=== PATIENT | female | born 1940 | race Caucasian/White ===

== ENCOUNTER → 2019-12-16 14:06 | Outpatient (CLI) | payer MEDICARE, SELFPAY ==
--- NOTE | ~2019-12-16 | XR_ITS ---
EXAMINATION: XR chest 2V EXAM DATE: 12/16/2019 14:38 INDICATION: Paroxysmal atrial fibrillation. Amiodarone therapy. TECHNIQUE: Frontal and lateral projections of the chest obtained and reviewed. Comparison is made to prior examination from 04/15/2018. FINDINGS: Chronic hyperinflation. There is a dual lead pacemaker/AICD seen with leads projecting ove r the expected locations of the right atrial appendage and right ventricle. Cardiomediastinal silhoue tte is normal. There is tortuosity of the aorta. No confluent consolidation, pneumothorax or pleural effusion suspected. There are bony degenerative changes. There is no significant interval change. IMPRESSION: 1. Clear lungs. Reviewed, dictated and finalized at location B. SERVICE DEMONSTRATOR IMPRESSION: 1. Clear lungs.
== END ==
PROVIDERS: PCP Physician Assistant; Visit Provider Internal Medicine Cardiovascular Disease
DX: I48.0 Paroxysmal atrial fibrillation (principal); Z79.899 Other long term (current) drug therapy
CPT/HCPCS: 71046

== ENCOUNTER → 2019-12-16 14:09 | Outpatient (CLI) | payer MEDICARE, SELFPAY ==
--- NOTE | ~2019-12-16 | XR_ITS ---
EXAMINATION: XR lumbar spine 2-3V DATE: 12/16/2019 14:38 INDICATION: Low back pain. TECHNIQUE: 3 views of lumbar spine were obtained. COMPARISON: Lumbar spine radiographs 09/21/2019 FINDINGS: There is 14 degrees dextroscoliosis of lumbar spine. There is 3 mm retrolisthesis of T12 on L1 and L1 on L2. There is 7 mm anterolisthesis of L5 on S1. There is a chronic compression fracture of L1 with 2/5 loss of height. There is severely decreased disc height at L1-L2 and moderately decrea sed disc height at L4-L5 and L5-S1. There is multilevel severe facet joint osteoarthritis, worse in l ower lumbar spine. There are surgical clips in the abdomen. Partially visualized is a pacer wire in r ight ventricle of the heart. IMPRESSION: 1. Stable severe lumbar spondylosis. 2. Thoracolumbar dextroscoliosis. Reviewed, dictated and finalized at location A. LABORER
== END ==
PROVIDERS: PCP Physician Assistant; Visit Provider Physician Assistant
DX: G89.29 Other chronic pain (principal); M47.896 Other spondylosis, lumbar region
CPT/HCPCS: 72100

== ENCOUNTER → 2020-01-02 14:33 | Outpatient (CLI) | payer MEDICARE, SELFPAY ==
--- NOTE | ~2020-01-02 | CT_ITS ---
EXAMINATION: CT lumbar spine wo con EXAM DATE: 01/02/2020 14:58 INDICATION: Lumbar radiculopathy. History of L1 fracture. TECHNIQUE: Spiral CT of the lumbar spine was performed without contrast. Axial, coronal and sagittal images were reviewed. The dose-length product (DLP) for this examination was 869.73 mGy-cm. The e xposure was tailored according to patient size (auto mA exposure control), and iterative reconstructi on (ASIR) was used as additional dose reduction technique. Correlation is made to lumbar x-ray 020, 10/01/2019. FINDINGS: Again there is mild to moderate anterior wedging, compression fracture at the superior endp late of the L1 vertebral body. Height is unchanged compared to the prior 2 studies, has chronic appea nader. Otherwise the vertebral body heights relatively well-maintained. There is small bridging endpl ate osteophytes. There is 3 mm retrolisthesis L1 on L2, 4 mm anterolisthesis L4 on L5 and 2 mm tamy listhesis L5 on S1. No spondylolysis. There are no bony erosions identified. There are bilateral sacr al insufficiency fractures with sclerosis, suggesting these are subacute. There is hyperdense liver with differential diagnosis including hemochromatosis, hemosiderosis, trans fusional overload, amiodarone treatment. Scattered sigmoid diverticulosis. Fluid density renal lesion s consistent with cysts. No retroperitoneal lymphadenopathy. Level by level evaluation: T12-L1: There is a mild diffuse disc bulge. Facet arthropathy: Mild. Neural foraminal stenosis: Moderate bilateral. Central canal stenosis: Mild. L1-L2: There is a mild to moderate diffuse disc bulge. Facet arthropathy: Moderate. Neural foraminal stenosis: Moderate bilateral, left greater than right. Central canal stenosis: Mild to moderate. L2-L3: There is a mild diffuse disc bulge. Facet arthropathy: Moderate. Neural foraminal stenosis: Mild bilateral. Central canal stenosis: Mild. L3-L4: There is a mild diffuse disc bulge. Facet arthropathy: Moderate to severe. Neural foraminal stenosis: Mild to moderate left, mild right. Central canal stenosis: Mild to moderate. L4-L5: There is a moderate diffuse disc bulge. Facet arthropathy: Severe. Neural foraminal stenosis: Moderate bilateral. Central canal stenosis: Severe. L5-S1: There is a mild to moderate diffuse disc bulge. Facet arthropathy: Moderate to severe. Neural foraminal stenosis: Moderate right, mild to moderate left. Central canal stenosis: Moderate to severe. IMPRESSION: 1. Bilateral sacroiliac insufficiency fractures, probably subacute. 2. L4-5 grade 1 anterolisthesis, severe facet arthropathy and central canal stenosis. 3. Lesser spondylosis at other levels. 4. Chronic L1 compression fracture. 5. Hyperdense liver, differential considerations above. Reviewed, dictated and finalized at location A. IMPRESSION: 1. Bilateral sacroiliac insufficiency fractures, probably subacute. 2. L4-5 grade 1 anterolisthesis, severe facet arthropathy and central canal st enosis. 3. Lesser spondylosis at other levels. 4. Chronic L1 compression fracture. 5. Hyperdense liver, differential considerations above.
== END ==
PROVIDERS: PCP Physician Assistant; Visit Provider Nurse Practitioner Adult Health
DX: M54.16 Radiculopathy, lumbar region (principal)
CPT/HCPCS: 72131

== ENCOUNTER 2020-03-10 18:15 | Emergency (ER) | payer MEDICARE, SELFPAY ==
--- NOTE | ~2020-03-10 | XR_ITS ---
EXAMINATION: XR wrist RT min 3V EXAM DATE: 03/10/2020 18:48 INDICATION: Initial encounter following injury, with pain of the right wrist. TECHNIQUE: Right wrist frontal, frontal with ulnar deviation, oblique and lateral projections obtain ed and reviewed. There is no prior study for comparison. FINDINGS: There is acute mildly comminuted right radial distal metaphyseal fracture into the distal r adioulnar and the radiocarpal joint. There is about 5 mm of volar displacement. There is acute nondis placed ulnar styloid base fracture. There is overlying soft tissue swelling. Mildly wide scapholunate joint space. There is mild polyarticular primary osteoarthritis. There is tiny foreign body identifi ed within the dorsal wrist subcutaneous fat on the lateral projection. IMPRESSION: 1. Acute mildly comminuted right distal radial metaphyseal intra-articular fracture. 2. Acute nondisplaced ulnar styloid avulsion. 3. Tiny radiopaque foreign body dorsally. Reviewed, dictated and finalized at location A. IMPRESSION: 1. Acute mildly comminuted right distal radial metaphyseal intra-articular fra cture. 2. Acute nondisplaced ulnar styloid avulsion. 3. Tiny radiopaque foreign body dorsally.
[2020-03-10 18:16] VITALS: BP 154/86; PULSE 64; RESP 18; TEMP 36.6; O2SAT 99
--- NOTE | 2020-03-10 19:14 | ED.UPPEXIN ---
HPI - Extremity Injury (Upper) General Chief Complaint: Extremity Injury, Upper Stated Complaint: right wrist injury Time Seen by Provider: 03/10/20 19:13 History of Present Illness HPI narrative: Trip and fall onto outstretched right hand earlier this evening. Moderate pain and swelling of the right wrist. Radiates to the elbow. Worse with movement. No weakness, numbness, wound. She denies any other pain or injury from the fall. Related Data Allergies Allergy/AdvReac Type Severity Reaction Status Date / Time No Known Allergies Allergy Verified 09/21/19 11:37 Review of Systems Review of Systems: All systems reviewed & are unremarkable except as noted in HPI and below Constitutional: Constitutional: Denies fever(s) Cardiovascular: Cardiovascular: Denies chest pain Respiratory: Respiratory: Denies dyspnea Musculoskeletal: Musculoskeletal: Reports back pain (chronic) Neurologic: Denies dizziness, Denies numbness and Denies weakness PMFSH Past Medical History Medical History Appendicitis Atrial fibrillation, permanent Brain tumor Pacemaker Surgical History Surgical History H/O: hysterectomy Hx of cholecystectomy Social History Social History Smoking status: Never smoker Alcohol intake: never Substance use: never Exam Const: General: no acute distress and alert Orientation/consciousness: patient oriented x3 HENMT: Head: normal to inspection Resp: Effort & Inspection: normal respiratory effort Cardio: Other: 2+right radial pulse Skin: General skin exam: normal color Wounds: no wounds Neuro: General: patient oriented x3 Speech: normal speech Extrem: Other: swelling and tenderness of right wrist without obvious deformity. Course Vital Signs Vital signs: Vital Signs Temperature 36.6 C 03/10/20 18:16 Pulse Rate 64 03/10/20 18:16 Respiratory Rate 18 03/10/20 18:16 Blood Pressure 154/86 H 03/10/20 18:16 Pulse Oximetry 99 03/10/20 18:16 Temperature 36.6 C 03/10/20 18:16 Pulse Rate 64 03/10/20 18:16 Respiratory Rate 18 03/10/20 18:16 Blood Pressure 154/86 H 03/10/20 18:16 Pulse Oximetry 99 03/10/20 18:16 Procedures Orthopedic Splinting/Casting Injury #1: Side: right Upper Extremity Injury Location: wrist Splint: customized in ED OCL: volar Pre-Procedure Neuro Vascular Exam: normal Post-Procedure Neuro Vascular Exam: normal MDM - Extremity Injury (Upper) Differential Diagnosis Differential diagnosis: Likely fracture of wrist Imaging Data Radiologist's impression: ITS Impressions Wrist X-Ray 03/10/20 18:52 IMPRESSION: 1. Acute mildly comminuted right distal radial metaphyseal intra-articular fracture. 2. Acute nondisplaced ulnar styloid avulsion. 3. Tiny radiopaque foreign body dorsally. Discharge Plan Discharge Clinical Impression: Fracture of wrist Qualifiers: Encounter type: initial encounter Fracture type: closed Laterality: right Qualified Code(s): S62.101A - Fracture of unspecified carpal bone, right wrist, initial encounter for closed fracture Patient Disposition: Home, Self-Care Condition: Stable Instructions: Wrist Fracture in Adults (ED) Prescriptions: New hydrocodone-acetaminophen [B[place]] 5-325 mg tablet 1 tablet PO Q6H PRN (Reason: pain) Qty: 15 RF: 0 Follow-up/Referrals: Dillan Malone MD [Physician] - [facility],JURGEN Villa [Primary Care Provider] - Discharge Date/Time: 03/10/20 19:41
== END 2020-03-10 19:41 | disposition home or self-care (01) ==
PROVIDERS: Emergency Provider Emergency Medicine; PCP Physician Assistant
DX: S52.571A Other intraarticular fracture of lower end of right radius, initial encounter for closed fracture (principal); S52.614A Nondisplaced fracture of right ulna styloid process, initial encounter for closed fracture; I48.21 Permanent atrial fibrillation; Z95.0 Presence of cardiac pacemaker; W01.0XXA Fall on same level from slipping, tripping and stumbling without subsequent striking against object, initial encounter
CPT/HCPCS: 29125; 73110; 99284; A9270

== ENCOUNTER 2020-04-24 15:03 | Outpatient (CLI) | payer MEDICARE, SELFPAY ==
[2020-04-24 15:43] LABS: Basophils Percent Auto 0.5 % (0.2-1.2); Eosinophils Absolute Auto 0.1 K/mm3 (0-0.3); Eosinophils Percent Auto 1.6 % (0-4.4); Hematocrit 32.1 % (37.0-47.0); Hemoglobin 10.3 g/dL (12.0-15.0); Immature Granulocyte Absolute 0.01 K/mm3 (0.00-0.031); Immature Granulocyte Percent A 0.3 % (0-0.5); Lymphocytes Absolute Auto 1.35 K/mm3 (0.9-3.2); Mean Corpuscular HGB Conc 32.1 g/dl (32-36); Mean Corpuscular Hemoglobin 36.5 pg (26-34); Mean Corpuscular Volume 113.8 fl (80-100); Mean Platelet Volume 10.5 fl (7.4-10.4); Monocytes Absolute Auto 0.4 K/mm3 (0.1-0.6); Monocytes Percent Auto 10.9 % (2.6-8.5); Neutrophils Absolute Auto 1.9 K/mm3 (1.3-6.7); Neutrophils Percent Auto 50.7 % (45.5-73.1); Platelet Count Result 270 k/mm3 (150-375); Red Blood Count 2.82 M/mm3 (4.2-5.4); Red Cell Distribution Width 14.2 % (11.5-14.5); White Blood Count 3.8 K/mm3 (4.5-10.0)
[2020-04-24 15:58] LABS: Alanine Aminotransferase 27 U/L (4-35); Albumin Level 4.1 g/dL (3.5-5.1); Alkaline Phosphatase 90 U/L (38-126); Aspartate Amino Transferase 40 U/L (14-36); Bilirubin,Total 0.2 mg/dL (0.2-1.3); Blood Urea Nitrogen 26 mg/dL (7-17); Calcium 8.7 mg/dL (8.4-10.2); Carbon Dioxide 24 mmol/L (22-30); Chloride 107 mmol/L (98-107); Cholesterol 212 mg/dL (0-200); Estimated Glomerular Filt Rate 53; Glucose 98 mg/dL (65-105); HDL Direct 80 mg/dL; Sodium 139 mmol/L (137-145); Triglycerides 178 mg/dL (<150)
[2020-04-24 16:08] LABS: LDL Cholesterol Direct 73 mg/dL
== END 2020-04-24 15:04 | disposition home or self-care (01) ==
PROVIDERS: PCP Family Medicine; Visit Provider Nurse Practitioner
DX: E78.5 Hyperlipidemia, unspecified (principal); R53.83 Other fatigue; E55.9 Vitamin D deficiency, unspecified; I10 Essential (primary) hypertension
CPT/HCPCS: 36415; 80053; 80061; 82306; 85025

== ENCOUNTER 2020-07-02 08:20 | Outpatient (CLI) | payer MEDICARE, SELFPAY ==
--- NOTE | ~2020-07-02 | DEXA_ITS ---
Bone Density Report Name: Maryanne Chapman I Age: 79 Sex: Female Ethnicity: White Date of : 1940 Indication: postmenopausal; height loss; prior fracture; hysterectomy; Referring Provider: Sania Childers Study: Bone densitometry was performed. Exam Date: July 02, 2020 Accession number: [id number] Bone Density: Region BMD T-score Z-score Classification AP Spine (L2, L3, L4) 0.751 -3.0 -0.2 Osteoporosis Femoral Neck (Left) 0.514 -3.0 -0.7 Osteoporosis Total Hip (Left) 0.622 -2.6 -0.5 Osteoporosis Total Hip Bilateral Avg 0.631 -2.5 -0.5 Osteoporosis Femoral Neck (Right) 0.488 -3.3 -0.9 Osteoporosis Total Hip (Right) 0.640 -2.5 -0.4 Osteoporosis World Health Organization criteria for BMD impression classify patients as: Normal (T-score at or above -1.0), Osteopenia (T-score between -1.0 and -2.5), or Osteoporosis (T-score at or below -2.5). 10-year Fracture Risk: FRAX not reported because: Some T-score for Spine Total or Hip Total or Femoral Neck at or below -2.5 Prior hip or vertebral fracture Clinical Information Provided by Patient: Have had a previous hip or vertebral fracture Has had a low trauma fracture Has the following medical conditions: Hysterectomy Patient maximum height was 66 Menopause Age: 34 No regular weight bearing exercise Onset of menses at age 13 Number of children 2 Impression: The patient has established osteoporosis, based on the Right Femoral Neck T-score and the existence of a prior fracture. The patient has risk factors, including: previous fracture. Discussion: HIGH RISK OF FRACTURE. BONE DENSITY IS UNDESIRABLY LOW AT ONE OR MORE SKELETAL SITES, CONSISTENT WITH POSTMENOPAUSAL OSTEOPOROSIS. This patient's lowest T-score, in a patient who has previously fractured, meets the World Health Organization's (WHO) criteria for severe osteoporosis. In untreated patients, the risk of osteoporotic fracture increases approximately two-fold for each 1.0 SD decrease in T-score. Low bone density is not the only risk factor for fracture; also consider factors such as patient's age, frailty or poor health, risk of falling, risk of injury, previous osteoporotic fracture, family history of osteoporosis, cigarette smoking, low body weight, etc. Not everyone with low bone mineral density has osteoporosis; osteomalacia and other metabolic bone disorders should also be considered. Patients who have osteoporosis should be evaluated for specific diseases and conditions (secondary causes) that may cause or contribute to bone loss. The [place] [employer] Endocrinologists (AACE) and National Osteoporosis Foundation (NOF) recommend pharmacologic intervention for all postmenopausal women with a previous hip or vertebral fracture and a T-score in this range. The patient should follow a healthful lifes
--- NOTE | ~2020-07-02 | XR_ITS ---
EXAMINATION: XR TMJ BI DATE: 07/02/2020 09:07 INDICATION: Right temporomandibular joint injury. Jaw asymmetry. TECHNIQUE: Open and closed mouth views of the bilateral temporomandibular joints were obtained. COMPARISON: Brain MRI 02/25/2008 FINDINGS: There are changes of occipital craniectomy. There is symmetric decreased anterior translati on of the mandibular condyles in the open-mouth position. There is mild osteoarthritis of the temporo mandibular joints. IMPRESSION: 1. Mild osteoarthritis of the temporomandibular joints. 2. Note that this exam has poor sensitivity for fracture. If there is clinical concern for fracture, consider maxillofacial CT. Reviewed, dictated and finalized at location A.
[2020-07-02 09:56] LABS: Hematocrit 27.7 % (37.0-47.0); Hemoglobin 9.1 g/dL (12.0-15.0); Mean Corpuscular HGB Conc 32.9 g/dl (32-36); Mean Corpuscular Hemoglobin 34.7 pg (26-34); Mean Corpuscular Volume 105.7 fl (80-100); Mean Platelet Volume 10.6 fl (7.4-10.4); Platelet Count Result 293 k/mm3 (150-375); Red Blood Count 2.62 M/mm3 (4.2-5.4); Red Cell Distribution Width 14.5 % (11.5-14.5); White Blood Count 3.6 K/mm3 (4.5-10.0)
[2020-07-02 10:07] LABS: Alanine Aminotransferase 26 U/L (4-35); Albumin Level 4.2 g/dL (3.5-5.1); Alkaline Phosphatase 85 U/L (38-126); Anion Gap 8 mmol/L (8-16); Aspartate Amino Transferase 38 U/L (14-36); Bilirubin,Total 0.4 mg/dL (0.2-1.3); Blood Urea Nitrogen 24 mg/dL (7-17); Calcium 8.7 mg/dL (8.4-10.2); Carbon Dioxide 23 mmol/L (22-30); Chloride 106 mmol/L (98-107); Estimated Glomerular Filt Rate 53; Glucose 105 mg/dL (65-105); Potassium 3.5 mmol/L (3.4-5.0); Sodium 137 mmol/L (137-145)
== END 2020-07-02 08:21 | disposition home or self-care (01) ==
PROVIDERS: PCP Family Medicine; Visit Provider Nurse Practitioner Family
DX: R68.84 Jaw pain (principal); Z78.0 Asymptomatic menopausal state; I10 Essential (primary) hypertension; M19.91 Primary osteoarthritis, unspecified site; M81.0 Age-related osteoporosis without current pathological fracture
CPT/HCPCS: 36415; 70330; 77080; 80053; 85027

== ENCOUNTER 2020-07-09 12:28 | Outpatient (CLI) | payer MEDICARE, SELFPAY ==
[2020-07-09 13:36] LABS: Basophils Percent Auto 0.5 % (0.2-1.2); Eosinophils Percent Auto 0.8 % (0-4.4); Hematocrit 28.8 % (37.0-47.0); Immature Granulocyte Absolute 0.01 K/mm3 (0.00-0.031); Immature Granulocyte Percent A 0.3 % (0-0.5); Lymphocytes Absolute Auto 0.85 K/mm3 (0.9-3.2); Lymphocytes Percent Auto 22.3 % (18.3-44.2); Mean Corpuscular HGB Conc 31.3 g/dl (32-36); Mean Corpuscular Hemoglobin 33.3 pg (26-34); Mean Corpuscular Volume 106.7 fl (80-100); Monocytes Absolute Auto 0.4 K/mm3 (0.1-0.6); Monocytes Percent Auto 10.5 % (2.6-8.5); Neutrophils Absolute Auto 2.5 K/mm3 (1.3-6.7); Neutrophils Percent Auto 65.6 % (45.5-73.1); Platelet Count Result 315 k/mm3 (150-375); Red Cell Distribution Width 14.7 % (11.5-14.5); White Blood Count 3.8 K/mm3 (4.5-10.0)
[2020-07-09 13:50] LABS: Alanine Aminotransferase 27 U/L (4-35); Albumin Level 3.9 g/dL (3.5-5.1); Alkaline Phosphatase 83 U/L (38-126); Anion Gap 6 mmol/L (8-16); Aspartate Amino Transferase 39 U/L (14-36); Bilirubin,Total 0.4 mg/dL (0.2-1.3); Blood Urea Nitrogen 24 mg/dL (7-17); Calcium 9.1 mg/dL (8.4-10.2); Carbon Dioxide 25 mmol/L (22-30); Chloride 107 mmol/L (98-107); Cholesterol 212 mg/dL (0-200); Estimated Glomerular Filt Rate 53; Glucose 103 mg/dL (65-105); HDL Direct 86 mg/dL; Potassium 3.7 mmol/L (3.4-5.0); Sodium 138 mmol/L (137-145); Triglycerides 151 mg/dL (<150)
[2020-07-09 14:01] LABS: LDL Cholesterol Direct 71 mg/dL
[2020-07-09 14:19] LABS: Iron 29 ug/dL (37-170)
[2020-07-09 14:28] LABS: Percent Iron Saturation 7 % (20-50)
[2020-07-09 14:55] LABS: Folic Acid 11.6 ng/mL (2.76->20)
[2020-07-12 21:18] LABS: Vitamin D 1,25 (OH)2 Total 35 pg/mL (18-72); Vitamin D2 1,25 (OH)2 <8 pg/mL; Vitamin D3 1,25 (OH)2 35 pg/mL
== END 2020-07-09 12:29 | disposition home or self-care (01) ==
LOC: ANHLAB 12:34
PROVIDERS: PCP Nurse Practitioner Family; Visit Provider Internal Medicine Gastroenterology
DX: E55.9 Vitamin D deficiency, unspecified (principal); D64.9 Anemia, unspecified; I10 Essential (primary) hypertension; E78.5 Hyperlipidemia, unspecified
CPT/HCPCS: 36415; 80053; 80061; 82607; 82652; 82746; 83540; 83550; 85025

== ENCOUNTER 2020-07-14 12:53 | Outpatient (CLI) | payer MEDICARE, SELFPAY ==
--- NOTE | ~2020-07-14 | CT_ITS ---
EXAMINATION: CT brain wo con DATE: 07/14/2020 13:26 INDICATION: Dizziness. History of benign tumor removal. TECHNIQUE: Computed tomography (CT) of the head was performed without intravenous contrast. The dose- length product was 529.67 mGy-cm. Automated exposure control and iterative reconstruction technique w ere employed. COMPARISON: None FINDINGS: There are surgical changes of posterior parietal craniectomy. Brain parenchymal volume is n ormal for age. There are scattered mild periventricular and subcortical white matter changes, most li janie related to small vessel ischemic disease (microangiopathy). No acute intracranial hemorrhage, in farction, mass or mass effect. Paranasal sinuses and mastoids are pneumatized. No depressed skull fra ctures. IMPRESSION: 1. No acute intracranial abnormality. Reviewed, dictated and finalized at location A.
== END 2020-07-14 12:54 | disposition home or self-care (01) ==
PROVIDERS: PCP Nurse Practitioner Family; Visit Provider Nurse Practitioner Family
DX: R42 Dizziness and giddiness (principal); R29.6 Repeated falls
CPT/HCPCS: 70450

== ENCOUNTER 2020-08-31 02:09 | Outpatient (CLI) | payer MEDICARE, SELFPAY ==
[2020-08-31 19:52] LABS: SARS-CoV-2 RNA PCR Negative
== END 2020-08-31 02:10 | disposition home or self-care (01) ==
LOC: ANHCOVIDDT 02:09
PROVIDERS: PCP Nurse Practitioner Family; Visit Provider Internal Medicine Gastroenterology
DX: Z01.812 Encounter for preprocedural laboratory examination (principal); Z20.828 Contact with and (suspected) exposure to other viral communicable diseases
CPT/HCPCS: 87635; C9803; U0003

== ENCOUNTER 2020-09-03 00:33 | Day surgery (SDC) | payer MEDICARE, SELFPAY ==
[2020-08-27 15:10] VITALS: BMI 33.7
[2020-09-03] MEDS: LACTATED RINGERS 1,000 ML 150 ML IV CONT (08:23)
[2020-09-03 08:24] VITALS: BP 139/74; PULSE 64; RESP 18; TEMP 36.3; O2SAT 100; BMI 32.6
--- NOTE | 2020-09-03 08:24 | WPDANESEPPF ---
Anes - Initial Pre Proc Eval Procedure: Operation Date: 09/03/20 09:15 Proposed Procedures p Esophagogastroduodenoscopy & Colonoscopy - Perez Veloz MD Date/Time: 09/03/20 08:24 Surgeon: Perez Veloz MD Pre Op Diagnosis: anemia Patient Data Age: 79 Gender: F Height: 5 ft 4 in Weight: 89 kg Allergies Allergy/AdvReac Type Severity Reaction Status Date / Time aspirin Allergy Nausea Verified 09/03/20 08:19 duloxetine AdvReac Unknown dizziness Verified 09/03/20 08:19 Home Medications Medication Instructions Recorded Confirmed Type acetaminophen 500 mg capsule 1,000 mg PO BID PRN 04/06/20 08/27/20 History amiodarone 200 mg tablet 200 mg PO DAILY tablet 04/06/20 08/27/20 History midodrine 2.5 mg tablet 10 mg PO TID tablet 04/06/20 08/27/20 History cholecalciferol (vitamin D3) 100 100 mcg PO DAILY #90 cap 05/15/20 08/27/20 Rx mcg (4,000 unit) capsule furosemide 20 mg tablet 20 mg PO QAM PRN #7 tablet 06/05/20 08/27/20 Rx rivaroxaban [Xarelto] 20 mg PO DAILY 08/27/20 09/03/20 History Patient hx anesthesia problems: none Family hx anesthesia problems: none PMFSH Past Medical History Medical History Appendicitis Arthritis Atrial fibrillation, permanent Brain tumor Distal radius fracture, right Dizziness Insomnia Macrocytic anemia Osteoporosis Pacemaker Recurrent falls Vitamin D deficiency Surgical History Surgical History H/O: hysterectomy History of permanent cardiac pacemaker placement Hx of cholecystectomy Family History Family History Mother TIA (transient ischemic attack) Heart attack Father Brain tumor Lung cancer Other Arthritis Diabetes mellitus Heart disease Hypertension Malignant neoplasm Social History Social History Smoking status: Never smoker Alcohol intake: never Substance use: never Substance use type: does not use Living arrangements: alone Spiritual care concerns: No Anes - Eval Final PreProcedure Day of Procedure 09/03/20 08:24 Patient weight: normal Heart: irregular rhythm Lungs: clear to auscultation Airway: Mallampati scale class III Neurological: alert and oriented Last oral intake: >/= 8 hours ASA classification: III Emergent: no Anesthetic plan: proceed Anesthesia type and monitoring: general GIVS and standard monitoring Informed Consent: The patient's anesthetic plan and its attendant risks and benefits were discussed with the patient/family/POA. Questions were solicited and answers provided to the satisfaction of the patient/family/POA.
--- NOTE | 2020-09-03 08:55 | PM.HPGS ---
History of Present Illness History of Present Illness Consent: Risks, benefits, and alternatives have been discussed and questions answered. Patient agrees to proceed with procedure. Chief complaint: anemia Narrative: Maryanne Chapman is a 79 year old female with history of anemia and falls, using xarelto (now on hold because scopes). Last colonoscopy 20 years ago. Review of Systems Constitutional: Constitutional: Denies headache(s) and Denies weakness Eyes: Eyes: Denies blurry vision ENT: Reports Normal hearing present, Denies headache(s) and Denies neck pain Cardiovascular: Cardiovascular: Denies chest pain and Denies dyspnea Respiratory: Respiratory: Denies dyspnea Gastrointestinal: Gastrointestinal: Reports no additional gastrointestinal complaints Genitourinary: Genitourinary: Denies dysuria Musculoskeletal: Musculoskeletal: Denies neck pain Integumentary/Breasts: Skin/Breast: Denies dry skin Neurologic: Reports Normal hearing present, Denies headache(s) and Denies weakness Psychiatric: Psychiatric: Denies anxiety Endocrine: Endocrine: Denies change in body appearance Hematologic/Lymphatic: Hematologic/Lymphatic: Denies easy bleeding Allergic/Immunologic: Allergic/Immunologic: Denies urticaria PMFSH Past Medical History Medical History (Updated 09/03/20 @ 08:56 by Perez Veloz MD) Appendicitis Arthritis Atrial fibrillation, permanent Brain tumor Constipation Distal radius fracture, right Dizziness Insomnia Macrocytic anemia Osteoporosis Pacemaker Recurrent falls Vitamin D deficiency Surgical History Surgical History H/O: hysterectomy History of permanent cardiac pacemaker placement Hx of cholecystectomy Family History Family History Mother TIA (transient ischemic attack) Heart attack Father Brain tumor Lung cancer Other Arthritis Diabetes mellitus Heart disease Hypertension Malignant neoplasm Social History Social History Smoking status: Never smoker Alcohol intake: never Substance use: never Substance use type: does not use Living arrangements: alone Spiritual care concerns: No Meds Home Medications and Allergies Home Medications Medication Instructions Recorded Confirmed Type acetaminophen 500 mg capsule 1,000 mg PO BID PRN 04/06/20 08/27/20 History amiodarone 200 mg tablet 200 mg PO DAILY tablet 04/06/20 08/27/20 History midodrine 2.5 mg tablet 10 mg PO TID tablet 04/06/20 08/27/20 History cholecalciferol (vitamin D3) 100 100 mcg PO DAILY #90 cap 05/15/20 08/27/20 Rx mcg (4,000 unit) capsule furosemide 20 mg tablet 20 mg PO QAM PRN #7 tablet 06/05/20 08/27/20 Rx rivaroxaban [Xarelto] 20 mg PO DAILY 08/27/20 09/03/20 History Allergies Allergy/AdvReac Type Severity Reaction Status Date / Time aspirin Allergy Nausea Verified 09/03/20 08:19 duloxetine AdvReac Unknown dizziness Verified 09/03/20 08:19 Vital Signs Vital Signs - 24 hr 09/03/20 08:24 Temperature 97.3 F L Pulse Rate 64 Respiratory Rate 18 Blood Pressure 139/74 Pulse Oximetry 100 Exam Const: General: comfortable and no acute distress HENMT: General nose exam: Normal nares present Eyes: General: appearance normal, both eyes and all related structures Neck: Neck: no JVD Resp: Auscultation: clear to auscultation bilaterally Cardio: Rate: regular rate Rhythm: regular rhythm GI: Inspection: non-distended GI Palp: Yes Soft to palpation Skin: General skin exam: normal color Neuro: General: gait normal Speech: normal speech Extrem: General: normal to inspection Psych: Mental Status: mental status grossly normal Assessment and Plan Assessment and plan (1) Macrocytic anemia: Code(s): D53.9 - Nutritional anemia, unspecified Status: Acute
--- NOTE | 2020-09-03 09:32 | SUR.OPER ---
EGD ENDED 906, NEW IV OBTAINED COLONOSCOPY STARTED 918
[2020-09-03 09:57] VITALS: BP 118/65; PULSE 65; RESP 24; O2SAT 98
[2020-09-03 10:07] VITALS: BP 100/50; PULSE 63; RESP 22; O2SAT 98
[2020-09-03 10:17] VITALS: BP 144/71; PULSE 66; RESP 17; O2SAT 99
== END 2020-09-03 10:33 | disposition home or self-care (01) ==
PROVIDERS: PCP Nurse Practitioner Family; Visit Provider Internal Medicine Gastroenterology
PROC: 0DJ08ZZ Inspection of Upper Intestinal Tract, Via Natural or Artificial Opening Endoscopic (ICD-10-PCS; CPT 43235; principal; 2020-09-03 09:15)
DX: D64.9 Anemia, unspecified (principal); K63.5 Polyp of colon; D12.5 Benign neoplasm of sigmoid colon; K57.30 Diverticulosis of large intestine without perforation or abscess without bleeding; I48.21 Permanent atrial fibrillation; M81.0 Age-related osteoporosis without current pathological fracture; E55.9 Vitamin D deficiency, unspecified; Z79.01 Long term (current) use of anticoagulants; Z95.0 Presence of cardiac pacemaker; K29.70 Gastritis, unspecified, without bleeding
CPT/HCPCS: 45385; 43239; 88305; J2704; J7120

== ENCOUNTER 2020-09-26 13:08 | Outpatient (CLI) | payer MEDICARE, SELFPAY ==
[2020-09-26 13:28] LABS: Basophils Percent Auto 0.4 % (0.2-1.2); Eosinophils Percent Auto 0.2 % (0-4.4); Hematocrit 27.7 % (37.0-47.0); Hemoglobin 8.5 g/dL (12.0-15.0); Immature Granulocyte Absolute 0.03 K/mm3 (0.00-0.031); Immature Granulocyte Percent A 0.5 % (0-0.5); Lymphocytes Absolute Auto 0.83 K/mm3 (0.9-3.2); Lymphocytes Percent Auto 14.5 % (18.3-44.2); Mean Corpuscular HGB Conc 30.7 g/dl (32-36); Mean Corpuscular Hemoglobin 29.7 pg (26-34); Mean Corpuscular Volume 96.9 fl (80-100); Monocytes Absolute Auto 0.4 K/mm3 (0.1-0.6); Monocytes Percent Auto 7.5 % (2.6-8.5); Neutrophils Absolute Auto 4.4 K/mm3 (1.3-6.7); Neutrophils Percent Auto 76.9 % (45.5-73.1); Platelet Count Result 379 k/mm3 (150-375); Red Blood Count 2.86 M/mm3 (4.2-5.4); Red Cell Distribution Width 18.2 % (11.5-14.5); White Blood Count 5.7 K/mm3 (4.5-10.0)
[2020-09-26 13:40] LABS: Alanine Aminotransferase 29 U/L (4-35); Albumin Level 4.1 g/dL (3.5-5.1); Alkaline Phosphatase 87 U/L (38-126); Anion Gap 9 mmol/L (8-16); Aspartate Amino Transferase 44 U/L (14-36); Bilirubin,Total 0.5 mg/dL (0.2-1.3); Blood Urea Nitrogen 18 mg/dL (7-17); Calcium 9.3 mg/dL (8.4-10.2); Carbon Dioxide 25 mmol/L (22-30); Chloride 103 mmol/L (98-107); Estimated Glomerular Filt Rate 48; Glucose 124 mg/dL (65-105); Potassium 3.7 mmol/L (3.4-5.0); Sodium 137 mmol/L (137-145)
== END 2020-09-26 13:09 | disposition home or self-care (01) ==
PROVIDERS: PCP Family Medicine; Visit Provider Family Medicine
DX: I10 Essential (primary) hypertension (principal); I95.1 Orthostatic hypotension
CPT/HCPCS: 36415; 80053; 84443; 85025

== ENCOUNTER → 2021-01-07 00:50 | Outpatient (CLI) | payer MEDICARE, MEDICAID, SELFPAY ==
[2021-01-07 20:23] LABS: SARS-CoV-2 RNA PCR Negative
== END ==
PROVIDERS: PCP Family Medicine; Visit Provider Internal Medicine Cardiovascular Disease
DX: R42 Dizziness and giddiness (principal); N30.00 Acute cystitis without hematuria; Z20.822 Contact with and (suspected) exposure to COVID-19
CPT/HCPCS: C9803; U0003; U0005

== ENCOUNTER 2021-01-10 01:12 | Day surgery (SDC) | payer MEDICARE, MEDICAID, SELFPAY ==
[2021-01-09 17:39] VITALS: BMI 29.2
[2021-01-10 09:00] VITALS: BP 140/61; PULSE 62; RESP 15; TEMP 36.6; O2SAT 98; BMI 29.4
[2021-01-10 09:02] LABS: Basophils Percent Auto 0.7 % (0.2-1.2); Eosinophils Absolute Auto 0.1 K/mm3 (0-0.3); Eosinophils Percent Auto 2.4 % (0-4.4); Immature Granulocyte Absolute 0.02 K/mm3 (0.00-0.031); Immature Granulocyte Percent A 0.4 % (0-0.5); Lymphocytes Absolute Auto 2.92 K/mm3 (0.9-3.2); Lymphocytes Percent Auto 54.7 % (18.3-44.2); Mean Corpuscular HGB Conc 29.2 g/dl (32-36); Mean Corpuscular Hemoglobin 26.6 pg (26-34); Monocytes Absolute Auto 0.5 K/mm3 (0.1-0.6); Monocytes Percent Auto 8.4 % (2.6-8.5); Neutrophils Absolute Auto 1.8 K/mm3 (1.3-6.7); Neutrophils Percent Auto 33.4 % (45.5-73.1); Platelet Count Result 336 k/mm3 (150-375); Red Blood Count 2.22 M/mm3 (4.2-5.4); Red Cell Distribution Width 17.3 % (11.5-14.5); White Blood Count 5.3 K/mm3 (4.5-10.0)
[2021-01-10 09:13] LABS: INR 1.1; Prothrombin Time 14.9 Seconds (11.1-14.7)
[2021-01-10 09:16] LABS: Anion Gap 9 mmol/L (8-16); Blood Urea Nitrogen 20 mg/dL (7-17); Calcium 8.5 mg/dL (8.4-10.2); Carbon Dioxide 23 mmol/L (22-30); Chloride 109 mmol/L (98-107); Estimated CRCL calculation 43 ml/min; Estimated Glomerular Filt Rate 60; Glucose 120 mg/dL (65-105); Potassium 3.7 mmol/L (3.4-5.0); Sodium 141 mmol/L (137-145)
[2021-01-10 09:24] LABS: Hematocrit 20.2 % (37.0-47.0); Hemoglobin 5.9 g/dL (12.0-15.0)
[2021-01-10 09:26] LABS: Anisocytosis 1+ (NORMAL); Hypochromasia 2+ (NORMAL); Platelet Estimate Adequate (Adequate); Poikilocytosis 1+ (NORMAL)
[2021-01-10 09:27] LABS: Ovalocytes 1+ (NORMAL)
--- NOTE | 2021-01-10 09:40 | SUR.PREOP ---
DR. GOMES NOTIFIED OF HH RESULT OF . DR. GOMES WILL SEE PT.
--- NOTE | 2021-01-10 10:06 | PM.SD2 ---
Same Day Admit/Disch: HPI History of Present Illness Chief complaint: BHAVIK Narrative: Maryanne Chapman is a 80 year old female with a history of [employer]otron[employer] pacemaker which has reached [facility], who is here for a generator change today. However she was found to be profoundly anemic with the H&H of 07/08 and I felt it best to cancel the case, reschedule for later, and evaluate her anemia 1st. We did check her pacemaker battery and even though it as reached [facility] she seems have enough energy left to last for several more weeks. She is not pacemaker dependent. She has not noticed any melena or bleeding. She has been evaluated for anemia in the past with endoscopies by Dr. Vargas last August which showed diverticulosis but no other problems. She is supposed to be taking iron supplements but was not sure of the dose and stopped taking them. She has felt more dizzy and lightheaded recently. She also has had more CARVAJAL recently. She has chronic dizziness partly due to orthostasis for which she takes midodrine. She has a history of paroxysmal atrial fibrillation well control with amiodarone; we do not see much AFib on her pacemaker checks. She has generalized weakness and has lost 40 lb since June. [facility] Past Medical History Medical History Appendicitis Arthritis Atrial fibrillation, permanent Brain tumor CKD (chronic kidney disease), stage III Constipation Distal radius fracture, right Dizziness Gastritis Insomnia Macrocytic anemia Orthostatic hypotension Osteoporosis Pacemaker Recurrent falls Vertigo Vitamin D deficiency Surgical History Surgical History H/O: hysterectomy 1974 History of lumpectomy of right breast 1974 History of permanent cardiac pacemaker placement 08/2010 History of repair of hiatal hernia 2012 History of tonsillectomy Hx of cholecystectomy 2012 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 Family History Family History Mother TIA (transient ischemic attack) Heart attack Father Brain tumor Lung cancer Other Arthritis Diabetes mellitus Heart disease Hypertension Malignant neoplasm Social History Social History Smoking status: Never smoker Second hand tobacco smoke exposure: No Alcohol intake: never Substance use: never Substance use type: does not use Living arrangements: with family Spiritual care concerns: No Same Day Admit/Disch: Med Pre-admit Medications Home Medications Medication Instructions Recorded Confirmed Type acetaminophen 500 mg capsule 1,000 mg PO BID PRN 04/06/20 01/09/21 History amiodarone 200 mg tablet 200 mg PO DAILY tablet 09/10/20 01/09/21 History midodrine 2.5 mg tablet 10 mg PO TID tablet 09/10/20 01/09/21 History linaclotide 145 mcg capsule 145 mcg PO DAILY #90 cap 11/16/20 01/09/21 Rx ferrous sulfate [Iron (ferrous 325 mg PO DAILY #30 tablet 01/10/21 Rx sulfate)] Exam Narrative: Exam Narrative: Pleasant older female company by her granddaughter no distress Const: General: healthy appearing and comfortable HENMT: Ears: external ears normal Eyes: EOM: EOMs intact bilaterally Chest: Chest palpation & inspection: normal inspection of the chest Other: Pacemaker site is well healed, left-sided Resp: Effort & Inspection: normal respiratory effort and abnormal respiratory pattern Cardio: Jugular venous distension: no JVD GI: Inspection: non-distended GI Palp: Yes Soft to palpation and No Tenderness to palpation present (GI) Skin: General skin exam: no rashes or lesions noted Neuro: General: patient oriented x3 Speech: normal speech Extrem: General: no clubbing, cyanosis or edema Psych: Appearance: grossly normal and well kempt Mental Status: mental status grossly normal DS: D
--- NOTE | 2021-01-10 10:45 | SUR.PREOP ---
Patient's CBC resulted Hgb/Hct 5.9/20.2. Dr. Borden notified and assessed patient at bedside. Oswaldo from [employer] at bedside and assessed generator. Plan to draw iron level today and have patient return in 3 weeks for generator change procedure. Patient and granddaughter, Chloe, updated and agreeable to plan of care.
[2021-01-10 11:29] LABS: Iron 18 ug/dL (37-170)
[2021-01-10 11:39] LABS: Percent Iron Saturation 5 % (20-50)
== END 2021-01-10 11:30 | disposition home or self-care (01) ==
PROVIDERS: PCP Family Medicine; Visit Provider Internal Medicine Cardiovascular Disease
PROC: 0JPT0PZ Removal of Cardiac Rhythm Related Device from Trunk Subcutaneous Tissue and Fascia, Open Approach (ICD-10-PCS; CPT 33228; principal; 2021-01-10 10:00)
DX: Z45.010 Encounter for checking and testing of cardiac pacemaker pulse generator [battery] (principal); D64.9 Anemia, unspecified; R06.00 Dyspnea, unspecified; R42 Dizziness and giddiness; R63.4 Abnormal weight loss; I48.21 Permanent atrial fibrillation; N18.30 Chronic kidney disease, stage 3 unspecified; M81.0 Age-related osteoporosis without current pathological fracture; E55.9 Vitamin D deficiency, unspecified; Z53.09 Procedure and treatment not carried out because of other contraindication
CPT/HCPCS: 36415; 80048; 83540; 83550; 85025; 85610; 99213; 99214; G0463; J0690; J7040

== ENCOUNTER 2021-01-14 15:18 | Inpatient (IN) | payer MEDICARE, MEDICAID, SELFPAY ==
[2021-01-14] VITALS (20 sets, daily range): BP systolic 85–188; BP diastolic 48–84; PULSE 57–67; RESP 12–22; TEMP 36.1–36.8; O2SAT 98–100; BMI 29.9
--- NOTE | ~2021-01-14 | XR_ITS ---
XR chest 2V 01/14/2021 15:53 Indication: Low blood pressure Procedure: 2 views of the chest Comparison: Comparison to multiple prior studies sequentially, with oldest reviewed study dated 01/2005. Findings: Cardiomegaly. Stable appearance to pacemaker leads. Left basilar atelectasis. There is athe rosclerosis and ectasia of the aorta. No focal pneumonia, edema or effusion. The lungs are hyperinfla olga which is consistent with, but not diagnostic of chronic obstructive pulmonary disease. There are wedge compression fractures of the thoracic spine which have developed or progressed since 12/16/2019. Impression: 1: Left basilar atelectasis. 2: Cardiomegaly. 3: Multiple age-indeterminate wedge compression fractures of the thoracic spine which have developed or progressed since 12/16/2019. Reviewed, dictated and finalized at location B. Impression: 1: Left basilar atelectasis. 2: Cardiomegaly. 3: Multiple age-indeterminate wedge compression fractures of the thoracic spine which have developed or progressed since 12/16/2019.
--- NOTE | ~2021-01-14 | CT_ITS ---
EXAMINATION: CT brain wo con DATE: 01/15/2021 12:22 INDICATION: Dizziness and numbness and tingling of the upper extremities. TECHNIQUE: Computed tomography (CT) of the head was performed without intravenous contrast. Sagittal and coronal reconstructions were performed. The mA was adjusted according to patient size. Iterative reconstruction technique was employed. The dose-length product was 529.67 mGy-cm. COMPARISON: head CT dated 07/14/2020 FINDINGS: Is seen are postoperative change of a chronic posterior parietal craniectomy. A couple small regions of encephalomalacia along gyri in the right frontal lobe consistent with sequela of old infarcts. No acute intracranial hemorrhage, acute infarction or abnormal extra axial fluid collection. There is mi ld to moderate scattered white matter hypoattenuation consistent with chronic small vessel ischemic d isease. Symmetric prominence of the sulci consistent with mild to moderate age-appropriate diffuse ce rebral volume loss. Ventricles are normal and symmetric. No mass/mass effect. The orbits, paranasal s inuses and mastoid air cells are normal. IMPRESSION: 1. No acute intracranial process. 2. Chronic posterior parietal craniectomy. Correlate with surgical history. 3. Age-related changes including mild to moderate diffuse volume loss and mild to moderate scattered white matter hypoattenuation consistent with chronic small vessel ischemic disease. Reviewed, dictated and finalized at location A. IMPRESSION: 1. No acute intracranial process. 2. Chronic posterior parietal craniectomy. Correlate with surgical history. 3. Age-related changes including mild to moderate diffuse volume loss and mild to moderate scattered white matter hypoattenuation consistent with chronic smal l vessel ischemic disease.
--- NOTE | ~2021-01-14 | CT_ITS ---
EXAMINATION: CT abdomen pelvis w con DATE: 01/15/2021 12:23 INDICATION: Drop in hemoglobin. Dizziness. TECHNIQUE: Computed tomography (CT) of the abdomen and pelvis was performed with 100 cc Omnipaque 350 intravenous contrast. The dose-length product was 846.61 mGy-cm. Automated exposure control and iter ative reconstruction technique were employed. COMPARISON: None. FINDINGS: There is lower lobe atelectasis. Heart size upper normal. There is ectasia of the abdominal aorta without evidence for aneurysm. No significant pleural or pericardial effusion. No lymphadenopa thy. There are calcified granulomas of the spleen. There are bilateral renal cysts. Status post tasha cystectomy. Nonobstructive bowel gas pattern. No abnormal free air or free fluid. Status post hystere ctomy. Severe lumbar spondylosis. There is scoliosis with degenerative anterolisthesis at L4-5 and L5 -S1. IMPRESSION: 1. No acute abdominal abnormality. Reviewed, dictated and finalized at location B.
--- NOTE | 2021-01-14 15:32 | ECG_ITS ---
Measurements Intervals [place] Rate: 59 P: 146 CT: 197 QRS: 185 QRSD: 114 T: 37 QT: 448 QTc: 445 Interpretive Statements SINUS BRADYCARDIA ARM LEADS REVERSED INTRAVENTRICULAR CONDUCTION DELAY DELAYED PRECORDIAL R/S TRANSITION CONSIDER INFERIOR INFARCT, AGE INDETERMINATE BASELINE ARTIFACT- I, III, AVR, AVL, AVF, V1 ABNORMAL ECG Electronically Signed On 01-14-2021 16:12:13 CDT by Alli Coelho D.O.
[2021-01-14 15:57] LABS: Basophils Percent Auto 0.4 % (0.2-1.2); Eosinophils Percent Auto 0.2 % (0-4.4); Immature Granulocyte Absolute 0.03 K/mm3 (0.00-0.031); Immature Granulocyte Percent A 0.6 % (0-0.5); Immature Reticulocyte Fraction 40.5 % (3.0-15.9); Lymphocytes Absolute Auto 1.01 K/mm3 (0.9-3.2); Lymphocytes Percent Auto 20.8 % (18.3-44.2); Mean Corpuscular Hemoglobin 26.9 pg (26-34); Mean Corpuscular Volume 92.5 fl (80-100); Mean Platelet Volume 10.9 fl (7.4-10.4); Monocytes Absolute Auto 0.5 K/mm3 (0.1-0.6); Monocytes Percent Auto 10.1 % (2.6-8.5); Neutrophils Absolute Auto 3.3 K/mm3 (1.3-6.7); Neutrophils Percent Auto 67.9 % (45.5-73.1); Platelet Count Result 294 k/mm3 (150-375); Red Blood Count 2.27 M/mm3 (4.2-5.4); Red Cell Distribution Width 18.2 % (11.5-14.5); Reticulocyte Hemoglobin Conten 28.3 pg (28.2-35.7); Reticulocyte Percent 3.36 % (0.7-4.3); Reticulocytes Absolute 0.08 B/L (32.2-175.7); White Blood Count 4.9 K/mm3 (4.5-10.0)
[2021-01-14 16:02] LABS: Prothrombin Time 14.1 Seconds (11.1-14.7)
[2021-01-14 16:03] LABS: Partial Thromboplastin Time 22.3 SECONDS (22.3-36.8)
[2021-01-14 16:10] LABS: Alanine Aminotransferase 25 U/L (4-35); Albumin Level 3.7 g/dL (3.5-5.1); Alkaline Phosphatase 80 U/L (38-126); Anion Gap 8 mmol/L (8-16); Aspartate Amino Transferase 43 U/L (14-36); Bilirubin,Total 0.6 mg/dL (0.2-1.3); Blood Urea Nitrogen 16 mg/dL (7-17); Calcium 8.8 mg/dL (8.4-10.2); Carbon Dioxide 23 mmol/L (22-30); Chloride 107 mmol/L (98-107); Estimated CRCL calculation 39 ml/min; Estimated Glomerular Filt Rate 53; Glucose 121 mg/dL (65-105); Potassium 3.7 mmol/L (3.4-5.0); Sodium 138 mmol/L (137-145)
[2021-01-14 16:19] LABS: Hemoglobin 6.1 g/dL (12.0-15.0)
[2021-01-14 16:32] LABS: Iron 38 ug/dL (37-170)
[2021-01-14 16:41] LABS: Percent Iron Saturation 10 % (20-50)
--- NOTE | 2021-01-14 16:50 | ED.GENADULT ---
HPI - General Adult General Chief complaint: Recheck/Abnormal Lab/Rx Stated complaint: LOW HEMAGLOBIN ~5.6, WEAK Time Seen by Provider: 01/14/21 15:28 History of Present Illness HPI narrative: Patient is an 80-year-old female who presents ER with low hemoglobin and progressive weakness over the last week. On 01/11/2021 patient was supposed to have a procedure for her pacemaker that is coming to the end of its life on the battery. At that time outpatient labs showed a hemoglobin of 5.9. Her PCP was contacted and patient was started on iron. Patient has had no dark black bowel movements or orthostasis. She does not feel particularly cold or short of breath. Family reports patient had EGD and colonoscopy that showed no internal bleeding recently. Patient has not been on her blood thinner for the last week. Related Data Home Medications Medication Instructions Recorded Confirmed acetaminophen 500 mg capsule 1,000 mg PO BID PRN 04/06/20 01/14/21 amiodarone 200 mg tablet 200 mg PO DAILY tablet 09/10/20 01/14/21 midodrine 2.5 mg tablet 10 mg PO TID tablet 09/10/20 01/14/21 Allergies Allergy/AdvReac Type Severity Reaction Status Date / Time duloxetine AdvReac Mild dizziness Verified 01/14/21 20:20 aspirin AdvReac Unknown Nausea Verified 01/14/21 20:46 Review of Systems Review of Systems: All systems reviewed & are unremarkable except as noted in HPI and below Constitutional: Constitutional: Denies chills, Denies fever(s) and Reports weakness ENT: Denies nasal congestion and Denies sore throat Cardiovascular: Cardiovascular: Denies chest pain, Denies rapid heart rate and Denies radiating jaw, neck or arm pain Respiratory: Respiratory: Denies cough and Denies dyspnea Gastrointestinal: Gastrointestinal: Denies abdominal pain, Denies diarrhea, Denies nausea and Denies vomiting Comments: No rectal bleeding PMFSH Past Medical History Medical History (Updated 01/14/21 @ 21:31 by Sebastián Flores MD) Arthritis Atrial fibrillation, permanent Brain tumor CKD (chronic kidney disease), stage III Constipation Distal radius fracture, right Dizziness Gastritis Insomnia Macrocytic anemia Orthostatic hypotension Osteoporosis Pacemaker Recurrent falls Vertigo Vitamin D deficiency Surgical History Surgical History H/O: hysterectomy 1974 History of lumpectomy of right breast 1974 History of permanent cardiac pacemaker placement 08/2010 History of repair of hiatal hernia 2012 History of tonsillectomy Hx of cholecystectomy 2012 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 HEAD: Normocephalic, atraumatic. EYES: PERRL and EOMI. pale conjunctiva ENT: Mucous membranes moist. CHEST: Clear to auscultation. No respiratory distress. HEART: Bradycardic and regular. Normal peripheral pulses. ABDOMEN: Soft, nontender, nondistended. SHANNON without gross blood and Hemoccult negative stool on guaiac. EXTREMITIES: Normal range of motion. 1+ edema. SKIN: Warm, dry, no rash. NEURO: Alert and oriented x3. Course Course Emergency Course: Blood transfusion ordered. Admit to hospitalist service. Vital Signs Vital signs: Vital Signs Temperature 97.1 F L 01/14
[2021-01-14 17:04] LABS: Thyroid Stimulating Hormone Reflex 0.433 uIU/mL (0.465-4.68)
[2021-01-14 17:14] LABS: Folic Acid 7.7 ng/mL (2.76->20)
[2021-01-14 17:31] LABS: Free T4 Free Thyroxine Reflex 3.23 ng/dL (0.78-2.19)
--- NOTE | 2021-01-14 18:38 | PC.NURSE ---
patient has no past medical history of high blood pressure, EDP aware of patient's blood pressure 188/77, ok with patient going to floor.
--- NOTE | 2021-01-14 18:50 | ADMGEN ---
This patient, Maryanne Chapman, was admitted to Medical Room 343-01. Patient/family oriented to hospital policies and general routines including ID bracelet, bed and alarms, visiting hours, pain management, procedures, bathroom and other care routines, personal items, smoking policy, room service/diet, and visiting hours. Information on how to activate the Rapid Response Team has been discussed. Patient/Family are encouraged to report perceived risks to care and to ask questions if they do not understand what they are told or what they should do.
--- NOTE | 2021-01-14 20:29 | PM.IMHP ---
H&P: HPI History of Present Illness Date/Time: 01/14/21 20:29 patient who was here on 01/10/2021. There was a short-stay summary documented that the patient has a history of a [employer] pacemaker which has reached charged gold the patient was here that day for generator change however she was found to be profoundly anemic with an H&H of 9 and 20. The case was canceled and was to be rescheduled later. The patient has been so weak lately that she has been using her walker. She did not notice any bleeding. She has had a workup for anemia in the past she has been seen by Dr. Vargas in the past. Looks like her last endoscopy was on 09/03/2020. Looks like they removed some polyps at that time. H&H on the of this month was 5.9 and 20.2. Today we 6.1 and 21.0 she is having a blood trans fusion at this time. Patient's T4 was noted to be 3.23 and TSH was 0.433. The patient is stating that she is having some dizziness and some weakness. She short of breath with exertion when she lays flat. The patient is being admitted into observation status. Date of service of 01/14/2021. Chief Complaint: Shortness of breath Review of Systems Review of Systems: All systems reviewed & are unremarkable except as noted in HPI and below Constitutional: Constitutional: Reports as per HPI and Reports no additional constitutional complaints Eyes: Eyes: Reports as per HPI and Reports no additional eye complaints ENT: Reports system reviewed and no additional complaints, except as documented and Reports Normal hearing present Cardiovascular: Cardiovascular: Reports no additional cardiovascular complaints Respiratory: Respiratory: Reports no additional respiratory complaints and Reports no additional respiratory complaints Gastrointestinal: Gastrointestinal: Reports as per HPI and Reports no additional gastrointestinal complaints Musculoskeletal: Musculoskeletal: Reports no additional musculoskeletal complaints Integumentary/Breasts: Skin/Breast: Reports system reviewed and no additional complaints, except as docu and Reports as per HPI Neurologic: Reports system reviewed and no additional complaints, except as documented, Reports as per HPI and Reports Normal hearing present Psychiatric: Psychiatric: Reports no additional psychiatric complaints and Reports as per HPI Endocrine: Endocrine: Reports no additional endocrine complaints Hematologic/Lymphatic: Hematologic/Lymphatic: Reports no additional hematologic/lymphatic complaints Allergic/Immunologic: Allergic/Immunologic: Reports no additional allergic/immunologic complaints [facility] Past Medical History Medical History (Updated 01/14/21 @ 20:46 by Katya Carrasquillo NP) Arthritis Atrial fibrillation, permanent Brain tumor CKD (chronic kidney disease), stage III Constipation Distal radius fracture, right Dizziness Gastritis Insomnia Macrocytic anemia Orthostatic hypotension Osteoporosis Pacemaker Recurrent falls Vertigo Vitamin D deficiency Surgical History Surgical History H/O: hysterectomy 1974 History of lumpectomy of right breast 1973 History of permanent cardiac pacemaker placement 08/2010 History of repair of hiatal hernia 2012 History of tonsillectomy Hx of cholecystectomy 2012 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
[2021-01-14] MEDS: ACETAMINOPHEN 325 MG TABLET 650 MG PO (22:28)
[2021-01-15 00:51] LABS: Hematocrit 27.7 % (37.0-47.0); Hemoglobin 8.8 g/dL (12.0-15.0)
[2021-01-15 05:48] VITALS: BP 143/65; PULSE 55; RESP 18; TEMP 36.4; O2SAT 97
[2021-01-15] MEDS: ACETAMINOPHEN 325 MG TABLET 650 MG PO ×2 (05:57→19:31)
[2021-01-15 06:08] LABS: Hematocrit 26.2 % (37.0-47.0); Hemoglobin 8.3 g/dL (12.0-15.0)
[2021-01-15 06:14] LABS: Alanine Aminotransferase 23 U/L (4-35); Albumin Level 3.2 g/dL (3.5-5.1); Alkaline Phosphatase 66 U/L (38-126); Anion Gap 5 mmol/L (8-16); Aspartate Amino Transferase 38 U/L (14-36); Bilirubin,Total 0.7 mg/dL (0.2-1.3); Blood Urea Nitrogen 14 mg/dL (7-17); Calcium 8.3 mg/dL (8.4-10.2); Carbon Dioxide 26 mmol/L (22-30); Chloride 106 mmol/L (98-107); Estimated CRCL calculation 49 ml/min; Estimated Glomerular Filt Rate > 60; Glucose 87 mg/dL (65-105); Potassium 3.3 mmol/L (3.4-5.0); Sodium 137 mmol/L (137-145)
[2021-01-15 06:15] LABS: Lactic Acid Reflex 0.9 mmol/L (0.7-2.1)
[2021-01-15] MEDS: MIDODRINE HCL 2.5 MG TABLET 10 MG PO ×3 (09:03→16:17)
[2021-01-15] MEDS: POTASSIUM CHLORIDE 20 MEQ TABLET PO (09:04)
[2021-01-15] MEDS: FERROUS SULFATE 324 MG TABLET PO (09:04)
[2021-01-15 09:06] VITALS: PULSE 55
[2021-01-15] MEDS: AMIODARONE HCL 200 MG TABLET PO (09:06)
--- NOTE | 2021-01-15 11:11 | PM.IMPN ---
Progress Note: A&P Assessment and Plan (1) Anemia: Code(s): D64.9 - Anemia, unspecified Status: Acute Assessment and Plan: Hemoglobin was 5.9 on 01/10/2021 prior to pacemaker battery replacement procedure. Remained low at 6.1 at PCP follow-up on 01/14/2021. She was transfused 2 units pRBC on 01/14. H&H stable following transfusion. Vital signs are stable. No evidence of blood loss.Iron panel is consistent with iron deficiency anemia. B12 and folate within normal limits. She had EGD and colonoscopy in August 2020 with no major findings to explain anemia. Monitor H&H closely. Repeat this evening. Transfuse as needed with hemoglobin threshold <7.0 Check fecal occult blood test Consultation to Hematology has been placed. Input is appreciated. Continue PO ferrous sulfate. She will benefit from IV iron infusion, but will await hematology evaluation/recommendations. (2) Dizziness: Code(s): R42 - Dizziness and giddiness Status: Acute Assessment and Plan: She reports dizziness has been ongoing for several years but worsened over the past several weeks. Dizziness worsens upon standing and with movement. This is most likely related to orthostasis for which she is managed on midodrine. Also could be related to anemia. May be vertiginous in nature. She reports falling on right sided face several weeks ago, and this could have exacerbated symptoms. Check orthostatics Obtain head CT to rule out intracranial cause for dizziness especially in light of associated numbness/tingling. Continue midodrine May benefit from vestibular therapy if no further etiology identified by above workup. (3) Atrial fibrillation: Code(s): I48.91 - Unspecified atrial fibrillation Status: Acute Assessment and Plan: Rate is well controlled. She has been a little bradycardic, mostly in the upper 50s-60s. Xarelto was discontinued on 01/10 per cardiology given anemia and infrequent episodes of AFib. Continue amiodarone (4) CKD (chronic kidney disease), stage III: Qualifiers: Chronic kidney disease stage 3 subtype: stage 3a (GFR 45-59) Qualified Code(s): N18.31 - Chronic kidney disease, stage 3a Code(s): N18.30 - Chronic kidney disease, stage 3 unspecified Status: Acute Assessment and Plan: Baseline creatinine appears to be 1.0. Labs are consistent with baseline. Monitor renal function closely. Renally dose medications and avoid nephrotoxins. (5) Compression fracture of thoracic vertebra: Code(s): S22.000A - Wedge compression fracture of unspecified thoracic vertebra, initial encounter for closed fracture Status: Acute Assessment and Plan: CXR demonstrates age-indeterminate wedge compression fractures of the thoracic spine with development/progression from last x-ray in November 2019. This is likely related to her osteoporosis. She does report several recent falls which also could be the etiology. Denies pain. Calcium level sufficient. Check vitamin-D level She will need an updated DEXA scan as an outpatient. She is not on any medications for osteoporosis at this time. Analgesics available as needed PT/OT eval appreciated (6) Pacemaker battery depletion: Code(s): Z45.010 - Encounter for checking and testing of cardiac pacemaker pulse generator [battery] Status: Acute Assessment and Plan: Pacemaker battery evaluated and reached BHAVIK. She was scheduled for a generator change on 01/10/2021, however this procedure was rescheduled due to her profound anemia. She is not pacemaker dependent. Planning for generator change in [address] Borden. (7) Weight loss: Code(s): R63.4 - Abnormal weight loss Status: Acute Assessment and Plan: She reports unintentional 40 lb weight loss since June 2020. She had unremarkable colonoscopy in August. She reports her appetite has bee
[2021-01-15 12:55] LABS: Hematocrit 26.6 % (37.0-47.0); Hemoglobin 8.4 g/dL (12.0-15.0)
--- NOTE | 2021-01-15 13:09 | PDONCCN ---
HPI - Date of Consult Date/Time: 01/15/21 13:09 Requesting Physician: Ros Gaona PA-C Primary Care Provider: Carol Damon MD - Consult Narrative Reason for consult: Anemia Narrative: Maryanne Chapman is a 80 year old female with history of macrocytic anemia, Afib s/p pacemaker, on anticoagulation with xarelto, history of stroke/TIA, in for [employer] pacemaker generator change on 01/10, however she was found to be profoundly anemic with an H&H of 5.9 and 20. The case was canceled and was to be rescheduled 3 weeks later after workup of her anemia. She has chronic macrocytic anemia since at least April 2020, with prior GI workups, EGD/colonoscopy August 2020 showed polyps and diverticulosis, no other source of anemia. Was not taking oral iron prescribed to her previously. Prior anemia workup June 2020 showed normal B12, folate and low iron levels. She has history dizziness and vertigo, but reports in the last week felt more fatigued, weaker and even more dizzy than usual when getting up. Came in to the ED on 01/14, Hb was 6.1 at the time. Patient admitted for further workup of anemia and weakness. Hematology consulted for acute on chronic anemia. Patient has received PRBC transfusions, reports would like to get up and try to mobilize on her own. Denies any history of GI bleed, no hematemesis, coffee ground emesis, hematochezia or melena, but has been having epigastric pain of late. Stools only dark when she takes iron. 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 Apart from weakness, fatigue on exertion and dizziness, no other symptoms today. Workup in the hospital for anemia thus far unrevealing. Review of Systems - Review of Systems All systems reviewed & are unremarkable except as noted in HPI and bel - Constitutional Reports fatigue, Reports lack of energy, Reports weakness - Neurologic Reports system reviewed and no additional complaints, except as documented, Reports hearing normal, Reports vertigo, Reports weakness [facility] Medical History: Medical History (Last Reviewed 01/14/21 @ 21:41 by Shiloh Arias RN) Arthritis Atrial fibrillation, permanent Brain tumor CKD (chronic kidney disease), stage III Constipation Distal radius fracture, right Dizziness Gastritis Insomnia Macrocytic anemia Orthostatic hypotension Osteoporosis Pacemaker Recurrent falls Vertigo Vitamin D deficiency Surgical History: Surgical History (Last Reviewed 01/14/21 @ 21:41 by Shiloh Arias RN) H/O: hysterectomy 1974 History of lumpectomy of right breast 1974 History of permanent cardiac pacemaker placement 08/2010 History of repair of hiatal hernia 2012 History of tonsillectomy Hx of cholecystectomy 2012 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 Family History: Family History (Last Reviewed 01/14/21 @ 21:41 by Shiloh Arias RN) Mother TIA (transient ischemic attack) Heart attack Father Brain tumor Lung cancer Other Arthritis Diabetes mellitus Heart disease Hypertension Malignant neoplasm - Social History Social History: Social History (Last Reviewed 01/14/21 @ 20:40 by Katya Carrasquillo NP) Gender Identity: Gender identity (if verbalized by the patient): Female Alcohol Use: Alcohol intake: never Substance Use: Substance use: never Substance use type: does not use Others: Spiritual care concerns: No Smoking Status: Smoking status: Never smoker Second hand tobacco smoke exposure: No Meds Home Medications Medication Instructions Recorded Confirmed Type acetaminophen 500 mg capsule 1,000 mg PO BID PRN 04/06/20 01/14/21 History amiodarone 200 mg tablet 200 mg PO DAILY tablet 09/10/20 01/14/21 History midodrine 2.5 mg tablet 10 mg PO TID tablet 09/10/20 01/14/21 History linaclotide 145 mcg capsule 145 mcg PO DAILY #90 cap 10/20
[2021-01-15 13:35] VITALS: BMI 29.9
[2021-01-15 13:47] LABS: HIV 1/2 Ab P24 Ag Result Negative (Negative)
[2021-01-15 13:55] LABS: Hepatitis B Surface Antigen Negative (Negative)
[2021-01-15 14:00] VITALS: BP 155/69; PULSE 56; RESP 16; TEMP 36.3; O2SAT 98
[2021-01-15 14:01] LABS: HAV RESULT Negative (Negative); Hepatitis B Core IgM Result Negative (Negative)
[2021-01-15 14:13] LABS: Hepatitis C Virus Antibody Negative (Negative)
[2021-01-15 15:09] LABS: Hematocrit 26.7 % (37.0-47.0); Hemoglobin 8.5 g/dL (12.0-15.0)
[2021-01-15 15:55] LABS: Carcinoembryonic Antigen 6.4 ng/mL (0.0-3.0)
--- NOTE | 2021-01-15 17:45 | WPDGICN ---
Assessment and Plan Assessment and plan (1) Symptomatic anemia: Code(s): D64.9 - Anemia, unspecified Status: Acute Assessment and Plan: received blood transfusion will do EGD again tomorrow to assess if source of bleeding (had few petechia last time but no signs of bleeding but still using xarelto), hematology on board no need to repeat colonoscopy if egd negative then we can set up capsule endoscopy as outpatient (2) Generalized weakness: Code(s): R53.1 - Weakness Status: Acute Assessment and Plan: from anemia, also pacemaker (3) Pacemaker battery depletion: Code(s): Z45.010 - Encounter for checking and testing of cardiac pacemaker pulse generator [battery] Status: Acute (4) Gastritis: Qualifiers: Gastritis type: unspecified gastritis Chronicity: unspecified Gastritis bleeding: without bleeding Qualified Code(s): K29.70 - Gastritis, unspecified, without bleeding Code(s): K29.70 - Gastritis, unspecified, without bleeding Status: Acute (5) Orthostatic hypotension: Code(s): I95.1 - Orthostatic hypotension Status: Acute Assessment and Plan: on midodrine GI Consult Note Consult date/time: 01/15/21 17:45 Reason for consult: symptomatic anemia HPI: Maryanne Chapman is a 80 year old female with AFib s/p pacemaker, TIA and last time I saw her for egd and colonoscopy as outpatient after she had anemia with history of falls in setting of using xarelto. EGD showed mild gastritis with petechia without bleeding or avm, colonoscopy with TA polyps removed, also diverticulosis but no other reason to explain anemia. This time she came in order to have her pacemaker recharged and blood work revealed profound anemia. hb 5.9, received blood transfusion. Denies overt GIB and she is doing fine. Hematology evaluated the patient and work up in progress, her xarelto was put on hold. Review of Systems Constitutional: Constitutional: Reports fatigue Eyes: Eyes: Denies blurry vision ENT: Reports Normal hearing present Cardiovascular: Cardiovascular: Denies chest pain Respiratory: Respiratory: Denies cough Gastrointestinal: Gastrointestinal: Denies hematochezia and Denies nausea Musculoskeletal: Musculoskeletal: Denies neck pain Integumentary/Breasts: Skin/Breast: Denies dry skin Neurologic: Denies confusion Psychiatric: Psychiatric: Denies anxiety [facility] Past Medical History Medical History (Updated 01/15/21 @ 17:52 by Perez Veloz MD) Arthritis Atrial fibrillation, permanent Brain tumor CKD (chronic kidney disease), stage III Constipation Distal radius fracture, right Dizziness Gastritis Insomnia Macrocytic anemia Orthostatic hypotension Osteoporosis Pacemaker Recurrent falls Symptomatic anemia Vertigo Vitamin D deficiency Surgical History Surgical History (Updated 01/15/21 @ 13:34 by Tammi Tillman MD) H/O: hysterectomy 1974 History of lumpectomy of right breast 1973 History of permanent cardiac pacemaker placement 08/2010 History of repair of hiatal hernia 2012 History of tonsillectomy Hx of cholecystectomy 2012 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
[2021-01-15 19:19] LABS: Hematocrit 26.5 % (37.0-47.0); Hemoglobin 8.4 g/dL (12.0-15.0)
[2021-01-15 19:59] VITALS: BP 152/79; PULSE 55; RESP 18; TEMP 36.4; O2SAT 98
[2021-01-15 20:03] VITALS: BP 156/96
[2021-01-15 20:04] VITALS: BP 111/46
[2021-01-16] VITALS (11 sets, daily range): BP systolic 98–174; BP diastolic 60–78; PULSE 54–62; RESP 14–20; TEMP 36.4–36.6; O2SAT 97–100
[2021-01-16 06:03] LABS: Hematocrit 25.5 % (37.0-47.0); Hemoglobin 8.1 g/dL (12.0-15.0); Mean Corpuscular HGB Conc 31.8 g/dl (32-36); Mean Corpuscular Hemoglobin 27.9 pg (26-34); Mean Corpuscular Volume 87.9 fl (80-100); Mean Platelet Volume 10.5 fl (7.4-10.4); Platelet Count Result 229 k/mm3 (150-375); Red Cell Distribution Width 16.5 % (11.5-14.5); White Blood Count 5.6 K/mm3 (4.5-10.0)
[2021-01-16 06:19] LABS: Alanine Aminotransferase 23 U/L (4-35); Albumin Level 3.1 g/dL (3.5-5.1); Alkaline Phosphatase 68 U/L (38-126); Anion Gap 1 mmol/L (8-16); Aspartate Amino Transferase 37 U/L (14-36); Bilirubin,Total 0.4 mg/dL (0.2-1.3); Blood Urea Nitrogen 14 mg/dL (7-17); Calcium 8.1 mg/dL (8.4-10.2); Carbon Dioxide 27 mmol/L (22-30); Chloride 108 mmol/L (98-107); Estimated CRCL calculation 40 ml/min; Estimated Glomerular Filt Rate 53; Glucose 94 mg/dL (65-105); Sodium 136 mmol/L (137-145)
[2021-01-16] MEDS: MIDODRINE HCL 2.5 MG TABLET 10 MG PO ×3 (09:19→16:44)
[2021-01-16] MEDS: LACTATED RINGERS 1,000 ML 150 ML IV CONT (11:37)
--- NOTE | 2021-01-16 11:52 | WPDANESEPPF ---
Anes - Initial Pre Proc Eval Procedure: Operation Date: 01/16/21 15:00 Proposed Procedures p Esophagogastroduodenoscopy - Perez Veloz MD Date/Time: 01/16/21 11:52 Surgeon: Ros Gaona PA-C Pre Op Diagnosis: anemia Patient Data Age: 80 Gender: F Height: 5 ft 4 in Weight: 79 kg Last Vital Signs Temp 97.6 F 01/16/21 11:30 Pulse 56 L 01/16/21 11:30 Resp 20 01/16/21 11:30 BP 160/66 H 01/16/21 11:30 Pulse Ox 98 01/16/21 11:30 Allergies Allergy/AdvReac Type Severity Reaction Status Date / Time duloxetine AdvReac Mild dizziness Verified 01/16/21 11:29 aspirin AdvReac Unknown Nausea Verified 01/16/21 11:29 Home Medications Medication Instructions Recorded Confirmed Type acetaminophen 500 mg capsule 1,000 mg PO BID PRN 04/06/20 01/14/21 History amiodarone 200 mg tablet 200 mg PO DAILY tablet 09/10/20 01/14/21 History midodrine 2.5 mg tablet 10 mg PO TID tablet 09/10/20 01/14/21 History linaclotide 145 mcg capsule 145 mcg PO DAILY #90 cap 11/16/20 01/14/21 Rx ferrous sulfate [Iron (ferrous 325 mg PO DAILY #30 tablet 01/10/21 01/14/21 Rx sulfate)] Laboratory Tests 01/15/21 01/15/21 01/15/21 12:47 12:47 12:47 WBC RBC Hgb 8.4 g/dL L g/dL (12.0-15.0) Hct 26.6 % L % (37.0-47.0) MCV MCH MCHC RDW Plt Count MPV Sodium Potassium Chloride Carbon Dioxide Anion Gap BUN Creatinine Estim Creat Clear Calc Estimated GFR Glucose Calcium Total Bilirubin AST ALT Alkaline Phosphatase Total Protein Albumin Carcinoembryonic Ag CA 19-9 Antigen Free T3 Pending Hepatitis A IgM Ab Negative (Negative) Hep Bs Antigen Negative (Negative) Hep B Core IgM Ab Negative (Negative) Hepatitis C Ab Screen Negative (Negative) HIV 1&2 Ab/P24 Ag 4thGn 01/15/21 01/15/21 01/15/21 12:47 15:03 15:03 WBC RBC Hgb 8.5 g/dL L g/dL (12.0-15.0) Hct 26.7 % L % (37.0-47.0) MCV MCH MCHC RDW Plt Count MPV Sodium Potassium Chloride Carbon Dioxide Anion Gap BUN Creatinine Estim Creat Clear Calc Estimated GFR Glucose Calcium Total Bilirubin AST ALT Alkaline Phosphatase Total Protein Albumin Carcinoembryonic Ag 6.4 ng/mL H ng/mL (0.0-3.0) CA 19-9 Antigen Free T3 Hepatitis A IgM Ab Hep Bs Antigen Hep B Core IgM Ab Hepatitis C Ab Screen HIV 1&2 Ab/P24 Ag 4thGn Negative (Negative) 01/15/21 01/15/21 01/16/21 15:03 18:48 05:54 WBC 5.6 K/mm3 K/mm3 (4.5-10.0) RBC 2.90 M/mm3 L M/mm3 (4.2-5.4) Hgb 8.4 g/dL L g/dL 8.1 g/dL L g/dL (12.0-15.0) (12.0-15.0) Hct 26.5 % L % 25.5 % L % (37.0-47.0) (37.0-47.0) MCV 87.9 fl fl (80-100) MCH 27.9 pg pg (26-34) MCHC 31.8 g/dl L g/dl (32-36) RDW 16.5 % H % (11.5-14.5) Plt Count 229 k/mm3 k/mm3 (150-375) MPV 10.5 fl H fl (7.4-10.4) Sodium Potassium Chloride Carbon Dioxide Anion Gap BUN Creatinine Estim Creat Clear Calc Estimated GFR Glucose Calcium Total Bilirubin
[2021-01-16] MEDS: BENZOCAINE (*SP) 60 ML SPRAY CAN (HURRICAINE) 1 SPRAY MUCOUS MEM (12:55)
--- NOTE | 2021-01-16 13:31 | PCOTNOTE ---
Attempted to see patient twice this pm, however patient was off floor for testing.
[2021-01-16] MEDS: FERROUS SULFATE 324 MG TABLET PO (14:37)
[2021-01-16] MEDS: AMIODARONE HCL 200 MG TABLET PO (14:40)
--- NOTE | 2021-01-16 16:15 | PM.IMPN ---
Progress Note: A&P Assessment and Plan (1) Anemia: Code(s): D64.9 - Anemia, unspecified Status: Acute Assessment and Plan: Hemoglobin was 5.9 on 01/10/2021 prior to pacemaker battery replacement procedure. Remained low at 6.1 at PCP follow-up on 01/14/2021. She was transfused 2 units pRBC on 01/14. H&H stable following transfusion. Vital signs are stable. No evidence of blood loss. Iron panel is consistent with iron deficiency anemia. B12 and folate within normal limits. She had EGD and colonoscopy in August 2020 with no major findings to explain anemia. H&H remaining stable today. Monitor H&H closely. Repeat this evening. Transfuse as needed with hemoglobin threshold <7.0 Fecal occult blood test ordered and awaiting specimen for collection Consultation to Hematology and gastroenterology has been placed. Input is appreciated. Continue PO ferrous sulfate. Capsule endoscopy recommended per GI if anemia persists (2) Orthostatic hypotension: Code(s): I95.1 - Orthostatic hypotension Status: Acute Assessment and Plan: This is likely source of her dizziness. She reports dizziness worsens upon standing and with movement. Continue midodrine Add Robert hose Continue to monitor orthostatics (3) Dizziness: Code(s): R42 - Dizziness and giddiness Status: Acute Assessment and Plan: She reports dizziness has been ongoing for several years but worsened over the past several weeks. Dizziness worsens upon standing and with movement. This is most likely related to orthostasis for which she is managed on midodrine. Also could be related to anemia. May be vertiginous in nature. She reports falling on right sided face several weeks ago, and this could have exacerbated symptoms. Head CT negative for acute findings. Could consider referral to vestibular rehab should dizziness persist despite above interventions (4) Atrial fibrillation: Code(s): I48.91 - Unspecified atrial fibrillation Status: Acute Assessment and Plan: Rate is well controlled. She has been a little bradycardic, mostly in the upper 50s-60s. Xarelto was discontinued on 01/10 per cardiology given anemia and infrequent episodes of AFib. Continue amiodarone (5) CKD (chronic kidney disease), stage III: Qualifiers: Chronic kidney disease stage 3 subtype: stage 3a (GFR 45-59) Qualified Code(s): N18.31 - Chronic kidney disease, stage 3a Code(s): N18.30 - Chronic kidney disease, stage 3 unspecified Status: Acute Assessment and Plan: Baseline creatinine appears to be 1.0. Labs are consistent with baseline. Monitor renal function closely. Renally dose medications and avoid nephrotoxins. (6) Compression fracture of thoracic vertebra: Code(s): S22.000A - Wedge compression fracture of unspecified thoracic vertebra, initial encounter for closed fracture Status: Deleted Assessment and Plan: CXR demonstrates age-indeterminate wedge compression fractures of the thoracic spine with development/progression from last x-ray in November 2019. This is likely related to her osteoporosis. She does report several recent falls which also could be the etiology. Denies pain. Vitamin-D levels are deficient. Initiate vitamin-D supplementation 1000 units daily. She will need an updated DEXA scan as an outpatient. She is not on any medications for osteoporosis at this time. Analgesics available as needed PT/OT eval appreciated (7) Weight loss: Code(s): R63.4 - Abnormal weight loss Status: Acute Assessment and Plan: She reports unintentional 40 lb weight loss since June 2020. She had unremarkable colonoscopy in August. She reports her appetite has been very poor and she has not been eating well. TSH is slightly abnormal which could contribute to weight loss. Hepatitis panel and HIV negative. There is concern for malig
[2021-01-17] MEDS: ACETAMINOPHEN 325 MG TABLET 650 MG PO ×2 (02:17→21:24)
[2021-01-17 06:08] VITALS: BP 146/60; PULSE 53; RESP 14; TEMP 36.5; O2SAT 96
[2021-01-17 06:46] LABS: Hematocrit 26.3 % (37.0-47.0); Hemoglobin 8.1 g/dL (12.0-15.0)
[2021-01-17 07:01] LABS: Anion Gap 2 mmol/L (8-16); Blood Urea Nitrogen 16 mg/dL (7-17); Calcium 7.9 mg/dL (8.4-10.2); Carbon Dioxide 28 mmol/L (22-30); Chloride 108 mmol/L (98-107); Estimated CRCL calculation 49 ml/min; Estimated Glomerular Filt Rate > 60; Glucose 83 mg/dL (65-105); Potassium 4.2 mmol/L (3.4-5.0); Sodium 138 mmol/L (137-145)
--- NOTE | 2021-01-17 07:30 | WPDANESPN ---
Anes - Prog Note Post-Op Date/Time: 01/17/21 07:30 Cardiovascular status: normal (monitor hgb ) Respiratory status: normal Airway patency: baseline Mental status: baseline Post-Op hydration status: normal Vital Signs: Last Vital Signs Temp 36.5 C 01/17/21 06:08 Pulse 53 L 01/17/21 06:08 Resp 14 01/17/21 06:08 BP 146/60 H 01/17/21 06:08 Pulse Ox 96 01/17/21 06:08 Pain Score (VAS): 0 I/O: Intake & Output 01/16/21 01/16/21 01/17/21 15:59 23:59 07:59 Intake Total 100 790 Output Total 1200 350 Balance 100 -410 -350 Laboratory Tests 01/17/21 06:02 01/17/21 06:02 01/17/21 01/17/21 06:02 06:02 Hgb 8.1 L Hct 26.3 L Sodium 138 Potassium 4.2 Chloride 108 H Carbon Dioxide 28 Anion Gap 2 L BUN 16 Creatinine 0.80 Estim Creat Clear Calc 49 Estimated GFR > 60 Glucose 83 Calcium 7.9 L Post-procedural complaints: none Patient Feedback: Patient satisfied with anesthetic care.
[2021-01-17 08:42] VITALS: PULSE 55
[2021-01-17] MEDS: AMIODARONE HCL 200 MG TABLET PO (08:42)
[2021-01-17] MEDS: CHOLECALCIFEROL 1,000 UNITS TABLET 1000 UNITS PO (08:43)
[2021-01-17] MEDS: PANTOPRAZOLE 40 MG TABLET PO (08:43)
[2021-01-17] MEDS: FERROUS SULFATE 324 MG TABLET PO (08:43)
[2021-01-17] MEDS: MIDODRINE HCL 2.5 MG TABLET 10 MG PO ×3 (08:44→17:21)
[2021-01-17 08:59] VITALS: BP 101/49; BP 132/61; BP 99/74
[2021-01-17] MEDS: ONDANSETRON INJ 4 MG/2 ML VIAL IV PUSH (11:41)
--- NOTE | 2021-01-17 11:52 | PCDIET ---
Nutrition Follow-Up Complete: Nutrition Diagnosis: Involuntary weight loss related to decreased appetite as evidenced by 12% weight loss x 6 months and patient statements. Nutrition Goal: Patient to consume 75% of meals/supplements or greater Goal in progress. Patient has been consuming 70-100% of meals on regular diet, but has refused supplements. Did try Frozen Nutritional Treat, but did not care for it and has been unwilling to try other supplements provided (Ensure Compact, Ensure Clear). Recommend discontinuing supplements and continuing regular diet. Adequate intake encouraged. Patient c/o feeling woozy now after moving around after eating, but reports has been tolerating meals without emesis. Noted Zofran was given today. Last recorded weight is 79 kg. Recommend obtaining new weight. Bowel Motility: Last documented BM on 01/15/21 x 1. Labs Reviewed: Hgb (8.1), Hct (26.3), Ca (7.9) Meds Noted: Ferrous Sulfate, Midodrine, Linaclotide, Zofran, Protonix, Vitamin D Additional Notes: No documented skin breakdown. Will continue to monitor with same goal. Nutrition Monitoring and Evaluation: Follow up in 5 days.
--- NOTE | 2021-01-17 11:56 | WPDONCPN ---
Progress Note: A/P (1) Anemia Code(s): D64.9 - Anemia, unspecified Status: Acute Assessment and plan: Acute on chronic macrocytic anemia present since at least April 2020. Baseline around 10 - 9, now presenting with Hb of 5.9 and symptomatic, in the setting of xarelto use for Afib. Xarelto on hold. CT a/p did not show any potential etiology of bleeding, no masses or tumors either. EGD yesterday showed only mild gastritis in the antrum with few petechiae which were ablated, no signs of overt bleeding or ulcers, AVMs, or other etiology to explain acute drop in Hb. Anemia workup so far unrevealing, B12 and folate normal on this admission, Iron levels unrevealing, Retic % appropriately elevated. - Per Dr. Vargas pt can have capsule endoscopy as an outpatient. - Tumor markers showed elevated CEA, CA19-9 still pending. - With her history of weight loss recently will need to continue further workup for GI malignancy. - Will order PET/CT, only done as outpatient. - For history of low iron can continue oral iron supplementation, would not give IV iron at the moment. - Continue supportive measures and transfusions as needed. - Will schedule outpatient appointment with Dr Bautista in oncology/hematology, likely 2 weeks from now. - Time Spent With Patient Total time spent is greater than 50% in coordination of care (as documented) at patient's floor/unit and/or counseling patient: 15 - 25 minutes Subjective Interval history: Still reporting dizziness when gets up from the bed. This AM had nausea and stomach upset after trying to get up. No hematemesis, bleeding or other symptoms. Review of Systems - Review of Systems All systems reviewed & are unremarkable except as noted in HPI and bel - Neurologic Reports system reviewed and no additional complaints, except as documented, Reports hearing normal, Reports vertigo, Reports weakness, Denies confusion Exam Vital signs: Temp Pulse Resp BP Pulse Ox 36.5 C 55 L 14 132/61 96 01/17/21 06:08 01/17/21 08:42 01/17/21 06:08 01/17/21 08:59 01/17/21 06:08 - Constitutional no acute distress - Routine Cardiovascular Exam Cardiovascular: Present: bradycardia - Routine Abdominal Exam Present: distended, soft - Routine Extremities Exam Present: pulses intact PN: Objective Data - Labs CBC & Chem 7: 01/17/21 06:02 01/17/21 06:02 Labs: Laboratory Results - last 24 hr 01/17/21 01/17/21 06:02 06:02 Hgb 8.1 L Hct 26.3 L Sodium 138 Potassium 4.2 Chloride 108 H Carbon Dioxide 28 Anion Gap 2 L BUN 16 Creatinine 0.80 Estim Creat Clear Calc 49 Estimated GFR > 60 Glucose 83 Calcium 7.9 L
[2021-01-17 14:03] VITALS: BP 170/69; PULSE 55; RESP 16; TEMP 36.4; O2SAT 95
--- NOTE | 2021-01-17 14:05 | PM.IMPN ---
Progress Note: A&P Assessment and Plan (1) Anemia: Code(s): D64.9 - Anemia, unspecified Status: Acute Assessment and Plan: Hemoglobin was 5.9 on 01/10/2021 prior to pacemaker battery replacement procedure. Remained low at 6.1 at PCP follow-up on 01/14/2021. She was transfused 2 units pRBC on 01/14. H&H stable following transfusion. Vital signs are stable. No evidence of blood loss. Iron panel is consistent with iron deficiency anemia. B12 and folate within normal limits. She had EGD and colonoscopy in August 2020 with no major findings to explain anemia. H&H remaining stable today. Monitor H&H closely. Transfuse as needed with hemoglobin threshold <7.0 Fecal occult blood test ordered and awaiting specimen for collection Consultation to Hematology and gastroenterology has been placed. Input is appreciated. Continue PO ferrous sulfate. Capsule endoscopy recommended per GI which will be set up as an outpatient (2) Weight loss: Code(s): R63.4 - Abnormal weight loss Status: Acute Assessment and Plan: She reports unintentional 40 lb weight loss since June 2020. She had unremarkable colonoscopy in August. She reports her appetite has been very poor and she has not been eating well. TSH is slightly abnormal which could contribute to weight loss. Hepatitis panel and HIV negative. There is concern for malignancy given weight loss and anemia. CEA is slightly elevated. No findings on CT abdomen/pelvis or EGD to explain symptoms Hematology/oncology has been consulted for evaluation of anemia. Further evaluation including outpatient PET/CT scan will need to be arranged. Appreciate dietitian evaluation dietary supplements. CA 19-9 ordered and pending. (3) Orthostatic hypotension: Code(s): I95.1 - Orthostatic hypotension Status: Acute Assessment and Plan: Long history. This is likely source of her dizziness. She had 30 point drop in BP upon sitting today. Continue midodrine Add Robert hose Encourage adequate PO intake Continue to monitor orthostatics (4) Dizziness: Code(s): R42 - Dizziness and giddiness Status: Acute Assessment and Plan: She reports dizziness has been ongoing for several years but worsened over the past several weeks. Dizziness worsens upon standing and with movement. This is most likely related to orthostasis for which she is managed on midodrine. Also could be related to anemia. May be vertiginous in nature. Head CT negative for acute findings. She had been referred by primary to outpatient vestibular rehab, however because she is current with home health, she is not able to attend outpatient rehab. I have spoken with inpatient physical therapist who will attempt to perform vestibular maneuvers today Continue management of orthostatic hypotension as above (5) Atrial fibrillation: Code(s): I48.91 - Unspecified atrial fibrillation Status: Acute Assessment and Plan: Rate is well controlled. She has been a little bradycardic, mostly in the upper 50s-60s, which appears to be her baseline. Xarelto was discontinued on 01/10 per cardiology given anemia and infrequent episodes of AFib. Continue amiodarone (6) CKD (chronic kidney disease), stage III: Qualifiers: Chronic kidney disease stage 3 subtype: stage 3a (GFR 45-59) Qualified Code(s): N18.31 - Chronic kidney disease, stage 3a Code(s): N18.30 - Chronic kidney disease, stage 3 unspecified Status: Acute Assessment and Plan: Baseline creatinine appears to be 1.0. Labs are consistent with baseline. Monitor renal function closely. Renally dose medications and avoid nephrotoxins. (7) Compression fracture of thoracic vertebra: Code(s): S22.000A - Wedge compression fracture of unspecified thoracic vertebra, initial encounter for closed fracture Status: Deleted Assessment and Plan: CXR
--- NOTE | 2021-01-17 17:36 | WPDGIPROGNO ---
Progress Note: A&P Assessment and Plan (1) Gastritis: Code(s): K29.70 - Gastritis, unspecified, without bleeding Status: Acute Assessment and Plan: egd with apc yesterday of petechia in antrum (had gastritis, no stigmata of bleeding but worried that could start bleeding again when she is back on her anticoagulation) will do small bowel capsule endoscopy as outpatient to assess if also other gi loss she can go home tomorrow by gi standpoint (2) Symptomatic anemia: Code(s): D64.9 - Anemia, unspecified Status: Acute Assessment and Plan: hematology on board (3) Atrial fibrillation: Code(s): I48.91 - Unspecified atrial fibrillation Status: Acute (4) Pacemaker: Code(s): Z95.0 - Presence of cardiac pacemaker Status: Acute Subjective Date/time seen: 01/17/21 17:36 Interval history: had some abdominal discomfort today after eating, no bleeding Review of Systems Review of Systems: All systems reviewed & are unremarkable except as noted in HPI and below Exam Const: General: comfortable and no acute distress HENMT: General nose exam: Normal nares present Eyes: Pupils: Equal, round and reactive pupils present Neck: Neck: supple Resp: Auscultation: clear to auscultation bilaterally Cardio: Rate: regular rate GI: GI Palp: Yes Soft to palpation, No Firmness to palpation present (GI) and No Guarding due to palpation present (GI) Auscultation: normal bowel sounds Skin: General skin exam: no erythema Neuro: Speech: normal speech Extrem: General: no edema Psych: Affect: normal affect Objective Data Vital Signs Vital Signs: Vital Signs - 24 hr 01/16/21 20:58 01/16/21 21:02 01/16/21 21:05 Temperature 97.8 F Pulse Rate 55 L Respiratory Rate 18 Blood Pressure 174/70 H 128/73 135/75 Pulse Oximetry 98 01/17/21 06:08 01/17/21 08:42 01/17/21 08:59 Temperature 97.7 F Pulse Rate 53 L 55 L Respiratory Rate 14 Blood Pressure 146/60 H 101/49 L Pulse Oximetry 96 01/17/21 14:03 Temperature 97.5 F L Pulse Rate 55 L Respiratory Rate 16 Blood Pressure 170/69 H Pulse Oximetry 95 Intake/Output Intake/Output: Intake & Output 01/14/21 01/15/21 01/16/21 01/17/21 23:59 23:59 23:59 23:59 Intake Total 800 1010 890 240 Output Total 650 1650 1150 Balance 800 404 -396 -916 Meds/Results Medications: Active Medications Generic Name Dose Route Start Last Admin Trade Name Freq PRN Reason Stop Dose Admin Acetaminophen 650 mg 01/14/21 17:36 01/17/21 02:17 Acetaminophen 325 Mg Tablet PO 650 mg Q4H PRN Administration Mild Pain (1-3) or Fever Hydrocodone Bitart/Acetaminophen 1 tab 01/14/21 17:36 Hydrocodone/Acetaminophen (*Crx) 5-325 Mg Tablet PO Q4H PRN Pain Rated 4-6 Al Hydrox/Mg Hydrox/Simethicone 30 ml 01/17/21 14:05 Mag Hydrox/Al Hydrox/Simeth 30 Ml Udc PO Q6H PRN Indigestion Amiodarone HCl 200 mg 01/15/21 09:00 01/17/21 08:42 Amiodarone Hcl 200 Mg Tablet PO 200 mg DAILY JONY Administration Ferrous Sulfate 324 mg 01/15/21 09:00 01/17/21 08:43 Ferrous Sulfate 324 Mg Tablet PO 324 mg DAILY JONY Administration Midodrine 10 mg 01/15/21 09:00 01/17/21 17:21 Midodrine Hcl 2.5 Mg Tablet PO 10 mg TID JONY Administration Non-Formulary Medication 145 mcg 01/15/21 09:00 Linaclotide PO 02/14/21 09:01 DAILY JONY Ondansetron HCl 4 mg 01/14/21 17:36 01/17/21 11:41 Ondansetron Inj 4 Mg/2 Ml Vial IV PUSH 4 mg Q4H PRN Administration Nausea Pantoprazole Sodium 40 mg 01/17/21 09:00 01/17/21 08:43 Pantoprazole 40 Mg Tablet PO 40 mg QAM [facility] Administration Vitamin D 1,000 units 01/17/21 09:00 01/17/21 08:43 Cholecalciferol 1,000 Units Tablet PO 1,000 units DAILY JONY Administration Radiology Results: ITS Impressions Chest X-Ray 01/14/21 15:56 Impression: 1: Left basilar atelectasis. 2: Cardiomegaly.
[2021-01-17 20:00] VITALS: BP 148/58; PULSE 56; RESP 18; TEMP 36.4; O2SAT 97
[2021-01-17 22:39] VITALS: BP 157/66; PULSE 53; RESP 16; TEMP 36.4; O2SAT 98
[2021-01-18] MEDS: ACETAMINOPHEN 325 MG TABLET 650 MG PO (02:52)
[2021-01-18 06:22] LABS: Hematocrit 28.9 % (37.0-47.0); Hemoglobin 9.1 g/dL (12.0-15.0); Mean Corpuscular HGB Conc 31.5 g/dl (32-36); Mean Corpuscular Hemoglobin 28.8 pg (26-34); Mean Corpuscular Volume 91.5 fl (80-100); Mean Platelet Volume 10.7 fl (7.4-10.4); Platelet Count Result 252 k/mm3 (150-375); Red Blood Count 3.16 M/mm3 (4.2-5.4); Red Cell Distribution Width 17.7 % (11.5-14.5); White Blood Count 4.7 K/mm3 (4.5-10.0)
[2021-01-18 06:25] VITALS: BP 127/52
[2021-01-18 06:26] VITALS: BP 131/56
[2021-01-18 06:41] LABS: Anion Gap 7 mmol/L (8-16); Blood Urea Nitrogen 12 mg/dL (7-17); Calcium 8.5 mg/dL (8.4-10.2); Carbon Dioxide 26 mmol/L (22-30); Chloride 106 mmol/L (98-107); Estimated CRCL calculation 49 ml/min; Estimated Glomerular Filt Rate > 60; Glucose 86 mg/dL (65-105); Potassium 3.7 mmol/L (3.4-5.0); Sodium 139 mmol/L (137-145)
[2021-01-18 08:00] VITALS: BP 130/68; PULSE 55; RESP 16; TEMP 36.5; O2SAT 97
[2021-01-18] MEDS: MIDODRINE HCL 2.5 MG TABLET 10 MG PO ×2 (08:45→12:28)
[2021-01-18 08:46] VITALS: PULSE 56
[2021-01-18] MEDS: PANTOPRAZOLE 40 MG TABLET PO (08:46)
[2021-01-18] MEDS: CHOLECALCIFEROL 1,000 UNITS TABLET 1000 UNITS PO (08:46)
[2021-01-18] MEDS: FERROUS SULFATE 324 MG TABLET PO (08:46)
[2021-01-18] MEDS: AMIODARONE HCL 200 MG TABLET PO (08:46)
[2021-01-18] MEDS: MAG HYDROX/AL HYDROX/SIMETH 30 ML UDC PO (12:30)
[2021-01-18 14:00] VITALS: BP 173/81; PULSE 54; RESP 16; TEMP 36.5; O2SAT 96
--- NOTE | 2021-01-18 15:14 | PM.DS ---
DS: Admitting Diagnosis Admitting Diagnosis Admitting Diagnosis: Anemia DS: Discharge Diagnosis Discharge Diagnosis (1) Anemia: Code(s): D64.9 - Anemia, unspecified Status: Acute Assessment and Plan: Hemoglobin was 5.9 on 01/10/2021 prior to pacemaker battery replacement procedure. Remained low at 6.1 at PCP follow-up on 01/14/2021. She was transfused 2 units pRBC on 01/14. H&H stabilized following transfusion. Vital signs remained stable. Iron panel was consistent with iron deficiency anemia. B12 and folate within normal limits. She had EGD and colonoscopy in August 2020 with no major findings to explain anemia. EGD repeated without evidence of bleeding but with few petechiae that were ablated. Fecal occult blood test ordered but no specimen was provided for collection. She was seen in consultation by oncology and gastroenterology. Further workup pending as described below. Continue PO ferrous sulfate. Repeat H&H in 1 week. (2) Weight loss: Code(s): R63.4 - Abnormal weight loss Status: Acute Assessment and Plan: She reports unintentional 40 lb weight loss since June 2020. She had unremarkable colonoscopy in August. She reports her appetite has been very poor and she has not been eating well. TSH is slightly abnormal which could contribute to weight loss. Hepatitis panel and HIV negative. There is concern for malignancy given weight loss and anemia. CEA is slightly elevated. CA 19-9 pending. No findings on CT abdomen/pelvis or EGD to explain symptoms. Outpatient PET/CT scan has been recommended per Oncology. She will follow up with Dr. Bautista for further evaluation. Capsule endoscopy has been recommended per GI and this will be arranged as an outpatient. She was seen by a r specialist as well. Dietary supplements provided. (3) Orthostatic hypotension: Code(s): I95.1 - Orthostatic hypotension Status: Acute Assessment and Plan: Long history of this and she is managed with midodrine. This is likely source of her dizziness. Robert dean added. Adequate PO intake encouraged. Fall precautions discussed. Continue midodrine. (4) Dizziness: Code(s): R42 - Dizziness and giddiness Status: Acute Assessment and Plan: She reports dizziness has been ongoing for several years but worsened over the past several weeks. Dizziness worsens upon standing and with movement, making orthostasis the most likely etiology. Also could have been worsened by profound anemia. Considered to be vertiginous in nature. She had been referred by primary to outpatient vestibular rehab, however because she is current with home health, she was not able to attend outpatient rehab. Vestibular eval performed by PT while inpatient and symptoms were not reproducible with maneuvers, therefore vertigo unlikely and further vestibular eval/treatment was not warranted. Continue management of orthostasis as above. (5) Atrial fibrillation: Code(s): I48.91 - Unspecified atrial fibrillation Status: Acute Assessment and Plan: Rate was well controlled, mostly in the upper 50s-60s, which appears to be her baseline. Xarelto was discontinued on 01/10 per cardiology given anemia and infrequent episodes of AFib. Continue amiodarone (6) CKD (chronic kidney disease), stage III: Qualifiers: Chronic kidney disease stage 3 subtype: stage 3a (GFR 45-59) Qualified Code(s): N18.31 - Chronic kidney disease, stage 3a Code(s): N18.30 - Chronic kidney disease, stage 3 unspecified Status: Acute Assessment and Plan: Baseline creatinine appears to be 1.0. Labs remained consistent with baseline. (7) Compression fracture of thoracic vertebra: Code(s): S22.000A - Wedge compression fracture of unspecified thoracic vertebra, initial encounter for closed fracture Status: Deleted Assessment and Plan: CXR demonstrates age-indeterminate wedge compression
--- NOTE | 2021-01-18 15:16 | PCPTNOTE ---
The PT treatment was unable to be completed today. Will continue per Plan of Care frequency and duration.
[2021-01-18 23:00] LABS: Triiodothyronine T3 Free 2.1 pg/mL (2.3-4.2)
[2021-01-23 13:11] LABS: CA 19-9 21 U/mL (<34)
== END 2021-01-18 17:35 | disposition home health service (06) | DRG 812 ==
LOC: ANHED 15:53 → ANH3MED 17:43
PROVIDERS: Internal Medicine Gastroenterology; Internal Medicine Medical Oncology; Nurse Practitioner; Physician Assistant; Admitting Provider Family Medicine; Emergency Provider Emergency Medicine; PCP Family Medicine; Visit Provider Internal Medicine
PROC: 0DJ08ZZ Inspection of Upper Intestinal Tract, Via Natural or Artificial Opening Endoscopic (ICD-10-PCS; CPT 43235; principal; 2021-01-16 15:00)
DX: D50.9 Iron deficiency anemia, unspecified (principal); I48.21 Permanent atrial fibrillation; M80.88XA Other osteoporosis with current pathological fracture, vertebra(e), initial encounter for fracture; D53.9 Nutritional anemia, unspecified; I95.1 Orthostatic hypotension; K29.70 Gastritis, unspecified, without bleeding; R23.3 Spontaneous ecchymoses; K44.9 Diaphragmatic hernia without obstruction or gangrene; R63.4 Abnormal weight loss; N18.31 Chronic kidney disease, stage 3a; M19.90 Unspecified osteoarthritis, unspecified site; R79.89 Other specified abnormal findings of blood chemistry; T46.2X5A Adverse effect of other antidysrhythmic drugs, initial encounter; Z95.0 Presence of cardiac pacemaker; Z90.710 Acquired absence of both cervix and uterus; Z90.49 Acquired absence of other specified parts of digestive tract; Z86.73 Personal history of transient ischemic attack (TIA), and cerebral infarction without residual deficits; Z79.01 Long term (current) use of anticoagulants
CPT/HCPCS: 36415; 36430; 70450; 71046; 74177; 80048; 80053; 80074; 82378; 82607; 82728; 82746; 83540; 83550; 83605; 84439; 84443; 84481; 85014; 85018; 85025; 85027; 85046; 85610; 85730; 86301; 86703; 86850; 86900; 86901; 86923; 93005; 96361; 96374; 97110; 97161; 97165; 97530; 97535; 99285; A9270; G0378; G0432; J2001; J2405; J2704; J7120; P9016; Q9967

== ENCOUNTER 2021-01-24 13:50 | Outpatient (RCR) | payer MEDICARE, MEDICAID, SELFPAY ==
--- NOTE | 2021-01-24 15:22 | PTOPEVAL ---
PHYSICAL THERAPY EVALUATION/DISCHARGE Thank you for referring Maryanne Chapman to [facility].? PT eval this date reveals negative VOR and BPPV testing. Unable to do balance testing as in standing Maryanne has orthostatic hypotension and becomes very dizzy with her numbness symptoms as well as leg weakness. She is scheduled to receive home health PT. I do not recommend out patient PT at this time. I agree with the above. Referring Physician Date Admitting Provider: Attending Provider: Sania Childers NP Referring Provider: Sania Childers NP *PT Outpatient Evaluation Start: 01/24/21 14:11 Freq: Status: Active Protocol: Document 01/24/21 14:05 GHASSAN (Rec: 01/24/21 15:22 GHASSAN [id number]) Therapy Assessment Status Assessment Status Assessment Status Evaluation Outpatient Past Medical History Past Medical History Source of Past Medical History Recalled from Previous Visit, Confirmed with Patient/Family Neurological History Hx Other Neurological Disorders Yes: Benign brain tumor. Removed, plate in place - 1979 Cardiovascular History Hx Atrial Fibrillation Yes: Went into A-fib during hernia repair. No known incidence since Hx Pacemaker Yes: Dr. Borden Hx Other Cardiac Disorders Yes: Hypotension Respiratory History Hx Chronic Obstructive Pulmonary Disease Yes: Borderline (COPD) Gastrointestinal History Hx Appendectomy Yes Hx Cholecystectomy Yes Hx Gastroesophageal Reflux Disease Yes Hx Hernia Yes Hx Polyps Yes Hx Other Gastrointestinal Disorders Yes: hiatal hernia Genitourinary History Hx Genitourinary Disorders No Significant History Musculoskeletal History Hx Crutches or Walker Use Yes: wheeled walker Query Text:If Yes, Enter Crutches, Walker, or Both in the Comment Hx Fractures Yes: Back, R Hand, R wrist, R orbit Hematological History Hx Anemia Yes Hx Blood Transfusions Yes Endocrine History Hx Endocrine Disorders No Significant History HEENT History Hx HEENT Disorders No Significant History Integumentary History Hx Skin Disorders No Significant History Reproductive History Hx Hysterectomy Yes Psychosocial History Hx Psychiatric Disorders No Significant History Pain History History of Any Previous or Ongoing No Significant History Instance of Pain Anesthesia History Hx Anesthesia Reactions No Significant History Evaluation Information Problem Diagnosis dizziness Onset Oct, Nov 2019 Subjective Informatio
== END 2021-01-28 07:55 | disposition home or self-care (01) ==
LOC: ANHPT 13:50
PROVIDERS: PCP Family Medicine; Referring Provider Nurse Practitioner Family; Visit Provider Nurse Practitioner Family
DX: R42 Dizziness and giddiness (principal); N30.00 Acute cystitis without hematuria
CPT/HCPCS: 97162

== ENCOUNTER → 2021-01-26 01:26 | Outpatient (CLI) | payer MEDICARE, MEDICAID, SELFPAY ==
[2021-01-27 00:06] LABS: SARS-CoV-2 RNA PCR Negative
== END ==
PROVIDERS: PCP Family Medicine; Visit Provider Internal Medicine Cardiovascular Disease
DX: Z01.812 Encounter for preprocedural laboratory examination (principal); Z20.822 Contact with and (suspected) exposure to COVID-19
CPT/HCPCS: C9803; U0003; U0005

== ENCOUNTER 2021-01-26 09:46 | Outpatient (CLI) | payer MEDICARE, MEDICAID, SELFPAY ==
[2021-01-26 10:48] LABS: Hematocrit 33.6 % (37.0-47.0); Hematocrit 33.7 % (37.0-47.0); Hemoglobin 10.3 g/dL (12.0-15.0); Mean Corpuscular HGB Conc 30.6 g/dl (32-36); Mean Corpuscular Hemoglobin 28.6 pg (26-34); Mean Corpuscular Volume 93.6 fl (80-100); Platelet Count Result 291 k/mm3 (150-375); Red Cell Distribution Width 20.4 % (11.5-14.5); White Blood Count 7.1 K/mm3 (4.5-10.0)
[2021-01-26 11:04] LABS: Anion Gap 8 mmol/L (8-16); Blood Urea Nitrogen 18 mg/dL (7-17); Calcium 8.7 mg/dL (8.4-10.2); Carbon Dioxide 27 mmol/L (22-30); Chloride 105 mmol/L (98-107); Estimated Glomerular Filt Rate > 60; Glucose 117 mg/dL (65-105); Sodium 140 mmol/L (137-145)
== END 2021-01-26 09:47 | disposition home or self-care (01) ==
PROVIDERS: PCP Family Medicine; Referring Provider Physician Assistant; Visit Provider Internal Medicine Cardiovascular Disease
DX: N18.30 Chronic kidney disease, stage 3 unspecified (principal); D53.9 Nutritional anemia, unspecified; D64.9 Anemia, unspecified
CPT/HCPCS: 36415; 80048; 85014; 85018; 85027

== ENCOUNTER 2021-01-29 02:41 | Day surgery (SDC) | payer MEDICARE, MEDICAID, SELFPAY ==
[2021-01-28 12:30] VITALS: BMI 29.8
[2021-01-29 11:25] VITALS: BP 163/80; PULSE 66; RESP 16; TEMP 36; O2SAT 99; BMI 28.7
[2021-01-29 11:33] LABS: Basophils Percent Auto 0.3 % (0.2-1.2); Eosinophils Percent Auto 0.6 % (0-4.4); Hematocrit 34.6 % (37.0-47.0); Hemoglobin 10.7 g/dL (12.0-15.0); Immature Granulocyte Absolute 0.05 K/mm3 (0.00-0.031); Immature Granulocyte Percent A 0.8 % (0-0.5); Lymphocytes Absolute Auto 1.02 K/mm3 (0.9-3.2); Lymphocytes Percent Auto 16.5 % (18.3-44.2); Mean Corpuscular HGB Conc 30.9 g/dl (32-36); Mean Corpuscular Hemoglobin 28.6 pg (26-34); Mean Corpuscular Volume 92.5 fl (80-100); Mean Platelet Volume 10.3 fl (7.4-10.4); Monocytes Absolute Auto 0.6 K/mm3 (0.1-0.6); Neutrophils Absolute Auto 4.4 K/mm3 (1.3-6.7); Neutrophils Percent Auto 71.8 % (45.5-73.1); Platelet Count Result 296 k/mm3 (150-375); Red Blood Count 3.74 M/mm3 (4.2-5.4); Red Cell Distribution Width 20.7 % (11.5-14.5); White Blood Count 6.2 K/mm3 (4.5-10.0)
--- NOTE | 2021-01-29 11:36 | PM.IMHP ---
H&P: HPI History of Present Illness Date/Time: 01/29/21 11:36 Maryanne Chapman is a 80 year old female with a history of [employer] pacemaker which has reached BHAVIK, who is here for a generator change today. She is not pacemaker dependent. Original device was implanted in August 2010. Here with granddaughter today, has been NPO, no fevers or new problems. Leads interrogated has some chronic ?noise? on her atrial lead and chronically somewhat low R-wave sensing on her RV lead but not enough to require lead revision at this time. She initially presented 3 weeks ago for this procedure but she was found to be profoundly anemic with the H&H of 5.9/20 and I felt it best to cancel the case, reschedule for later, and evaluate her anemia 1st. I stopped her anticoagulation. Since then she has received 2 units of packed cells and been seen by Dr. katia oneill for evaluation of anemia. Had endoscopy Dr. Vargas who noted some petechia of her gastric antrum but no active bleeding. He plans on doing a small bowel capsule endoscopy to assess for GI blood loss. Patient also has a history of paroxysmal atrial fibrillation. Hypertension. Tachy-padmaja syndrome, orthostasis. She is not ambulatory due to generalized weakness. Chief Complaint: Pacemaker at elective replacement interval Review of Systems Constitutional: Constitutional: Reports weakness (Chronic weakness, nonambulatory) Comments: Sleeps in an easy chair, can't stand and pivot but did cannot walk Cardiovascular: Cardiovascular: Denies chest pain, Denies pedal edema, Reports lightheadedness (Chronic lightheadedness) and Denies palpitations Respiratory: Respiratory: Reports dyspnea on exertion (Chronic) Gastrointestinal: Gastrointestinal: Reports abdominal pain (Chronic epigastric pain) Genitourinary: Genitourinary: Denies hematuria Musculoskeletal: Musculoskeletal: Reports no additional musculoskeletal complaints Integumentary/Breasts: Skin/Breast: Denies rash Neurologic: Reports confusion (May have some mild memory loss) Psychiatric: Psychiatric: Reports no additional psychiatric complaints [facility] Past Medical History Medical History (Updated 01/29/21 @ 11:53 by Erin Borden MD) Arthritis Atrial fibrillation, permanent Brain tumor CKD (chronic kidney disease), stage III Constipation Distal radius fracture, right Dizziness Gastritis Insomnia Macrocytic anemia Orthostatic hypotension Osteoporosis Pacemaker Original pacemaker implant [place] [address] Mckenzie at [facility], [employer] device. 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 Family History Family History Mother TIA (transient ischemic attack) Heart attack Father Brain tumor Lung cancer Other Arthritis Diabetes mellitus Heart disease Hypertension Malignant neoplasm Social History Social History Smoking status: Never smoker Second hand tobacco smoke exposure: No Alcohol intake: never Substance use: never Substance use type: does not use Living arrangements: with family Gender identity (if verbalized by the patient): Male Sexual Orientation (if Verbalized by the Patient): Straight or Heterosexual Spiritual care concerns: No Meds Home Medications and Allergies Home Medications Medication Instructions Recorded Confirmed Type acetaminophen 500 mg capsule 1,000 mg PO BID PRN 04/06/20 01/28/21 History amiodarone 200 mg tablet 200 mg PO
--- NOTE | 2021-01-29 11:43 | SUR.PREOP ---
Patient arrives to [facility] via wheelchair accompained by granddaughter. Plan for generator change today. PIV established and labs sent. VS obtained. Consent signed. Patient updated on plan of care and verbalizes understanding.
[2021-01-29 11:45] LABS: Anion Gap 11 mmol/L (8-16); Blood Urea Nitrogen 19 mg/dL (7-17); Calcium 9.5 mg/dL (8.4-10.2); Carbon Dioxide 26 mmol/L (22-30); Chloride 105 mmol/L (98-107); Estimated CRCL calculation 48 ml/min; Estimated Glomerular Filt Rate > 60; Glucose 109 mg/dL (65-105); Potassium 3.1 mmol/L (3.4-5.0); Sodium 142 mmol/L (137-145)
--- NOTE | 2021-01-29 11:58 | WPDMODSED ---
Moderate Sedation Note-Pt Data Patient Data Diagnosis: Pacemaker at elective replacement interval Present Complaint: Same Procedure to be performed/Plan: Conscious sedation generator change Allergies Allergy/AdvReac Type Severity Reaction Status Date / Time duloxetine AdvReac Mild Nausea Verified 01/28/21 12:36 aspirin AdvReac Unknown Nausea Verified 01/28/21 12:36 Home Medications Medication Instructions Recorded Confirmed Type acetaminophen 500 mg capsule 1,000 mg PO BID PRN 04/06/20 01/28/21 History amiodarone 200 mg tablet 200 mg PO DAILY tablet 09/10/20 01/28/21 History midodrine 2.5 mg tablet 10 mg PO TID tablet 09/10/20 01/28/21 History linaclotide 145 mcg capsule 145 mcg PO DAILY #90 cap 11/16/20 01/28/21 Rx ferrous sulfate [Iron (ferrous 325 mg PO DAILY #30 tablet 01/10/21 01/28/21 Rx sulfate)] cholecalciferol (vitamin D3) 1,000 unit PO DAILY #30 tablet 01/18/21 01/28/21 Rx [Vitamin D3] pantoprazole 40 mg PO QAM #30 tablet 01/18/21 01/28/21 Rx Sedation/Anesthesia: No previous sedation/anesthesia problems (including family history). [facility] Past Medical History Medical History (Updated 01/29/21 @ 11:53 by Erin Borden MD) Arthritis Atrial fibrillation, permanent Brain tumor CKD (chronic kidney disease), stage III Constipation Distal radius fracture, right Dizziness Gastritis Insomnia Macrocytic anemia Orthostatic hypotension Osteoporosis Pacemaker Original pacemaker implant [place] [address] Mckenzie at [facility]'s device. 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 Family History Family History Mother TIA (transient ischemic attack) Heart attack Father Brain tumor Lung cancer Other Arthritis Diabetes mellitus Heart disease Hypertension Malignant neoplasm Social History Social History Smoking status: Never smoker Second hand tobacco smoke exposure: No Alcohol intake: never Substance use: never Substance use type: does not use Living arrangements: with family Gender identity (if verbalized by the patient): Male Sexual Orientation (if Verbalized by the Patient): Straight or Heterosexual Spiritual care concerns: No Mod Sed Physical Exam Physical Exam Pre Procedural Exam: Normal: Appearance, Eyes, Ears, Nose, Neck, Throat, Lungs, Heart Size, Heart Rate, Heart Rhythm, Neuro Exam, Abdomen and Skin (Pacemaker incision well-healed) and Variation: Airway (Dentures in place) and Extremities (Pedal edema) Hours since solid foods: 12 Hours since liquid intake: 12 Internal Medicine - PN: Obj Da Vital Signs Vital Signs: Vital Signs - 24 hr 01/29/21 11:25 Temperature 96.8 F L Pulse Rate 66 Respiratory Rate 16 Blood Pressure 163/80 H Pulse Oximetry 99 Labs CBC & Chem 7: 01/29/21 11:19 01/29/21 11:19 Labs: Laboratory Results - last 24 hr 01/29/21 01/29/21 01/29/21 11:19 11:19 11:19 WBC 6.2 RBC 3.74 L Hgb 10.7 L Hct 34.6 L MCV 92.5 MCH 28.6 MCHC 30.9 L RDW 20.7 H Plt Count 296 MPV 10.3 Immature Gran % (Auto) 0.8 H Neut % (Auto) 71.8 Lymph % (Auto) 16.5 L Sanborn % (Auto) 10.0 H Eos % (Auto) 0.6 Baso % (Auto) 0.3 Lymph # (Auto) 1.02 Sanborn # (Auto) 0.6 Eos # (Auto) 0.0 Baso # (Auto) 0.0 Abs Immat Gran (auto) 0.05 H Absolute Neuts (auto) 4.4 Absolute Nucleated RBC 0.0 Nucleated RBC % 0.0 PT 14.0 INR
--- NOTE | 2021-01-29 13:41 | PM.OP ---
Procedure Note - Brief Procedure Note - Brief Date of procedure: 01/29/21 Pre-op diagnosis: BHAVIK Post-op diagnosis: same Procedure performed: Conscious sedation Generator change Description of procedure: uneventful generator change Anesthesia: local ( with conscious sedation) Surgeon: Erin Borden MD Condition: stable Disposition: same day
--- NOTE | 2021-01-29 13:42 | P.OP_ITS ---
Procedure Note - Detailed Date of procedure: 01/29/21 Pre-op diagnosis: BHAVIK Post-op diagnosis: same Procedure performed: PROCEDURE: Conscious sedation Generator change Description of procedure: UNDERLYING RHYTHM: paroxysmal atrial tachycardia, and NSR CONSCIOUS SEDATION: Assessment: The patient has no history of anesthesia problems. The oropharynx is clear. The patient was deemed to be a good candidate for conscious sedation. The patient had continuous hemodynamic and oximetric monitoring during the procedure. Start time: 1304 Completion time: 13 32 Total conscious sedation time: 28 minutes Medications: Versed 1 mg, fentanyl 75 mcg Trained observer: Shy Soni RN Outcome: The patient tolerated the procedure well with no complications. PROCEDURE: After informed consent, the patient is brought to the labor custodian and the left prepectoral area was prepped and draped in usual fashion. The patient was given a prophylactic antibiotic intravenously, and Ancef 1 g. After conscious sedation as described above, the area was anesthetized with 1% lidocaine. A skin incision is made with the Plasma Blade and carried down to the pacing capsule which was also incised. Hemostasis is obtained using the Plasma Blade. The lead/s was/were freed from the underlying capsule and inspected and were found to be intact. The pulse generator was delivered from the pocket. The lead/s was/were disconnected from the existing device and reconnected to the new device. A gentle tug could not remove it/them. The device and lead/s was/were interrogated and found to be functioning appropriately. The area was copiously irrigated with antibiotic-containing solution. The device was replaced in the pocket. The subcutaneous tissues were closed in a two-layer fashion with interrupted 2 0 Vicryl sutures and the skin was closed in a continuous fashion using 4 0 Vicryl. The area was cleansed, an Aquacel dressing applied. The patient tolerated the procedure well with no complications. Estimated blood loss was negligible. DEVICE INFORMATION: Pulse generator: [employer] model 2272, serial number [id number] Atrial lead: [employer] model 1998/52 cm, serial number [id number] ventricular lead: [employer] model / 58 CM, serial number [id number] THRESHOLD INFORMATION: Atrial lead: 0.75 volts at 0.4 milliseconds, P-wave sensing 0.9 mV, impedance 380 Ohms Ventricular lead: 1.375 volts at 1.0 milliseconds, R-wave sensing 3.6 mV, impedance 410 Ohms PROGRAMMED PARAMETERS: DDDR 60-130 Implants: Pulse generator: [employer] model 2272, serial number [id number] Atrial lead: [employer] model 1998/52 cm, serial number [id number] ventricular lead: [employer] model 2087TC/ 58 CM, serial number [id number] Anesthesia: local ( with conscious sedation) Surgeon: Erin Borden MD Estimated blood loss (mL): 5 Drains: No Packing: No Pathology: none sent Complications: No immediate complications Condition: stable Disposition: observation
--- NOTE | 2021-01-29 13:51 | ECG_ITS ---
Measurements Intervals Mccool Rate: 65 P: 33 OK: 202 QRS: -5 QRSD: 125 T: 102 QT: 403 QTc: 422 Interpretive Statements SINUS RHYTHM BORDERLINE AV CONDUCTION DELAY INTRAVENTRICULAR CONDUCTION DELAY LEFT VENTRICULAR HYPERTROPHY AND ST-T CHANGE CONSIDER INFERIOR INFARCT, AGE INDETERMINATE BORDERLINE ST-T WAVE ABNORMALITY- ANTEROLATERAL LEADS BASELINE ARTIFACT- I, II, III, AVR, AVL, AVF, V1-V6 ABNORMAL ECG Electronically Signed On 01-29-2021 16:51:51 CDT by Alli Coelho D.O.
[2021-01-29 14:00] VITALS: BP 168/89; PULSE 67; RESP 18; O2SAT 98
[2021-01-29 14:15] VITALS: BP 163/86; PULSE 65; RESP 16; O2SAT 98
[2021-01-29 14:30] VITALS: BP 179/79; PULSE 67; RESP 15; O2SAT 98
[2021-01-29 14:45] VITALS: BP 162/81; PULSE 67; RESP 15; O2SAT 98
[2021-01-29 15:00] VITALS: BP 172/84; PULSE 64; RESP 15; O2SAT 98
--- NOTE | 2021-01-29 15:29 | SUR.PHASEII ---
1515 - IV d/c'd from right forearm with catheter intact - no redness or swelling at the site. Discharge instructions reviewed with patient and granddaughter with stated understanding. Discharged to personal vehicle via wheelchair. Assisted with transfer into vehicle.
== END 2021-01-29 15:15 | disposition home or self-care (01) ==
PROVIDERS: PCP Family Medicine; Visit Provider Internal Medicine Cardiovascular Disease
PROC: 0JPT0PZ Removal of Cardiac Rhythm Related Device from Trunk Subcutaneous Tissue and Fascia, Open Approach (ICD-10-PCS; CPT 33228; principal; 2021-01-29 12:30)
DX: Z45.010 Encounter for checking and testing of cardiac pacemaker pulse generator [battery] (principal); I47.1 Supraventricular tachycardia; I12.9 Hypertensive chronic kidney disease with stage 1 through stage 4 chronic kidney disease, or unspecified chronic kidney disease; N18.30 Chronic kidney disease, stage 3 unspecified; R53.1 Weakness; D64.9 Anemia, unspecified; M81.0 Age-related osteoporosis without current pathological fracture; E55.9 Vitamin D deficiency, unspecified
CPT/HCPCS: 33228; 36415; 80048; 85014; 85018; 85025; 85027; 85610; C1785; C9803; J0690; J2250; J3010; J7040; U0003; U0005

== ENCOUNTER 2021-02-03 20:15 | Inpatient (IN) | payer MEDICARE, MEDICAID, SELFPAY ==
[2021-02-03] VITALS (27 sets, daily range): BP systolic 159–185; BP diastolic 78–91; PULSE 64–73; RESP 14–24; TEMP 36.4; O2SAT 92–100
--- NOTE | ~2021-02-03 | CT_ITS ---
EXAMINATION: CT abdomen pelvis wo con DATE: 02/07/2021 15:15 INDICATION: Nausea and vomiting. TECHNIQUE: Computed tomography (CT) of the abdomen and pelvis was performed without intravenous contr ast. Automated exposure control and iterative reconstruction technique were employed. The dose-length product was 832.52 mGy-cm. COMPARISON: CT abdomen and pelvis 02/03/2021 FINDINGS: The visualized portions of the lung bases demonstrates mild atelectasis. There is a small l eft pleural effusion. Cardiomegaly is noted. There are pacer wires in right atrium and right ventricl e. No pericardial effusion. There is a right posterior diaphragmatic hernia containing fat. There are surgical changes of the stomach. There is a small sliding hiatal hernia. The liver is hyperdense, co nsistent with amiodarone exposure. There are changes of cholecystectomy. Calcifications in the spleen are consistent with old granulomatous disease. The pancreas and adrenal glands are normal. There are cysts in the kidneys measuring up to 2.6 cm on the left. There is a 2 mm stone in right kidney. Ther e are two 2 mm stones in left kidney. There is diverticulosis of the colon without evidence of divert iculitis. There are no dilated loops of bowel. The appendix is not visualized. There are no pathologi mandie enlarged lymph nodes. There is no free intraperitoneal fluid. There is severe lumbar spondylosi s. There are chronic compression fractures of T11 and L1. IMPRESSION: 1. Worsened small left pleural effusion. 2. Small sliding hiatal hernia. Reviewed, dictated and finalized at location B.
--- NOTE | ~2021-02-03 | CT_ITS ---
EXAMINATION: CT abdomen pelvis w con DATE: 02/03/2021 21:40 INDICATION: Epigastric abdominal pain TECHNIQUE: Computed tomography (CT) of the abdomen and pelvis was performed with 100 cc Omnipaque 350 intravenous contrast. Automated exposure control and iterative reconstruction technique were employe d. Exam dose: 591.38 mGy-cm total exam DLP. COMPARISON: 01/15/2021 CT abdomen pelvis FINDINGS: There is mild infiltrate and/or atelectasis at the lung bases. Very small left pleural effu valentina. Small fat-containing foramen of Bochdalek hernia on the right. Cardiomegaly. Pacemaker. No pericardial effusion. There is prominent high density of the liver, with attenuation up to 230 Hounsfield units, consistent with hemachromatosis. No focal space-occupying mass lesion is evident. Status post cholecystectomy. No bile duct or pancreatic duct dilatation. There is atrophy/fatty rowland e of the pancreas. There are multiple splenic calcified granulomas. No splenomegaly. There are bilateral renal cysts, more numerous and larger on the left, measuring up to approximately 1 cm maximal dimension. Approximately 2 mm nonobstructing lower pole right renal calculus no ureteral calculus or hydroureter onephrosis of either kidney is evident. The urinary bladder is unremarkable. Status post hysterectomy. There is atherosclerotic calcification of the abdominal aorta and aortic branches but no abdominal ao rtic aneurysm. No intraperitoneal or retroperitoneal or pelvic mass lesion or adenopathy or ascites is evident. Small sliding hiatal hernia. Postoperative change likely related to fundoplication. The appendix is n ot identified. Mild diverticulosis of the sigmoid colon; no CT evidence of diverticulitis. There is thickening of the wall of colon which may represent colitis. No bowel obstruction, pneumatos is or intraperitoneal free air. There is mild loss of height and anterior wedging of T11, likely due to old mild compression fracture . There is moderate anterior wedge compression fracture deformity of L1. There is severe degenerative disc disease and mild retrolisthesis at L1-2. There is prominent degenerative changes apophyseal joints with associated grade 1 anterolisthesis at L4-5. There is moderate degenerative disc disease at L4-5. Moderately severe degenerative disc disease and grade 1 anterolisthesis at L5-S1. IMPRESSION: Reviewed, dictated and finalized at [facility]. Reviewed, dictated and finalized at [facility]. IMPRESSION:
--- NOTE | 2021-02-03 20:23 | ED.NAVMDI ---
HPI - Nausea/Vomiting/Diarrhea General Chief complaint: Nausea/Vomiting/Diarrhea Stated complaint: N/V Time Seen by Provider: 02/03/21 20:15 History of Present Illness HPI Narrative: Nausea, vomiting, diarrhea for the past 4 days. Associated with epigastric pain. moderate, no radiation. Started the day after having her pacemaker battery changed. She was put on antibiotics following the procedure, but she has not been able to take them. She is now feeling weak and dizzy. She has recent h/o of being admitted to the hospital for anemia requiring transfusion. She had endoscopy showing gastritis and a few small areas of bleeding. Denies dark or bloody stools. Related Data Home Medications Medication Instructions Recorded Confirmed acetaminophen 500 mg capsule 1,000 mg PO BID PRN 04/06/20 01/29/21 amiodarone 200 mg tablet 200 mg PO DAILY tablet 09/10/20 01/28/21 midodrine 2.5 mg tablet 10 mg PO TID tablet 09/10/20 01/28/21 Allergies Allergy/AdvReac Type Severity Reaction Status Date / Time duloxetine AdvReac Mild Nausea Verified 02/03/21 20:25 aspirin AdvReac Unknown Nausea Verified 02/03/21 20:25 Review of Systems Review of Systems: All systems reviewed & are unremarkable except as noted in HPI and below Constitutional: Constitutional: Denies chills, Denies fever(s) and Reports weakness Eyes: Eyes: Reports no additional eye complaints ENT: Reports system reviewed and no additional complaints, except as documented Cardiovascular: Cardiovascular: Denies chest pain Respiratory: Respiratory: Denies dyspnea Gastrointestinal: Gastrointestinal: Reports abdominal pain, Reports diarrhea, Reports nausea and Reports vomiting Genitourinary: Genitourinary: Reports no additional female genitourinary complaints Musculoskeletal: Musculoskeletal: Denies back pain Neurologic: Reports system reviewed and no additional complaints, except as documented [facility] Past Medical History Medical History Arthritis Atrial fibrillation, permanent Brain tumor CKD (chronic kidney disease), stage III Constipation Distal radius fracture, right Dizziness Gastritis Insomnia Macrocytic anemia Orthostatic hypotension Osteoporosis Pacemaker Original pacemaker implant in [address] Mckenzie at [facility], [facility]'s device. 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 Family History Family History Mother TIA (transient ischemic attack) Heart attack Father Brain tumor Lung cancer Other Arthritis Diabetes mellitus Heart disease Hypertension Malignant neoplasm Social History Social History Smoking status: Never smoker Second hand tobacco smoke exposure: No Alcohol intake: never Substance use: never Substance use type: does not use Gender identity (if verbalized by the patient): Male Spiritual care concerns: No Exam Const: General: no acute distress, alert and ill appearing Orientation/consciousness: patient oriented x3 HENMT: Mouth: Yes dry mucous membranes Neck: Neck: normal visual inspection Resp: Effort & Inspection: normal respiratory effort Auscultation: clear to auscultation bilaterally Cardio: Rate: regular rate Rhythm: regular rhythm GI: Inspection: non-distended GI Palp: Yes Soft to palpation, Yes Tenderness to palpation present (GI) (epigastrium), No Guarding due to palpation present (GI) and No Rebound t
[2021-02-03] MEDS: ONDANSETRON INJ 4 MG/2 ML VIAL IV PUSH (20:44)
[2021-02-03] MEDS: SODIUM CHLORIDE 0.9% IV 1,000 ML 999 ML IV CONT (20:44)
[2021-02-03] MEDS: PANTOPRAZOLE SODIUM IV 40 MG VIAL IV PUSH (20:44)
[2021-02-03 21:05] LABS: Basophils Percent Auto 0.2 % (0.2-1.2); Eosinophils Percent Auto 0.8 % (0-4.4); Hematocrit 33.2 % (37.0-47.0); Hemoglobin 10.5 g/dL (12.0-15.0); Immature Granulocyte Absolute 0.09 K/mm3 (0.00-0.031); Immature Granulocyte Percent A 1.9 % (0-0.5); Lymphocytes Absolute Auto 0.76 K/mm3 (0.9-3.2); Lymphocytes Percent Auto 15.7 % (18.3-44.2); Mean Corpuscular HGB Conc 31.6 g/dl (32-36); Mean Corpuscular Hemoglobin 29.3 pg (26-34); Mean Corpuscular Volume 92.7 fl (80-100); Monocytes Absolute Auto 0.5 K/mm3 (0.1-0.6); Monocytes Percent Auto 9.9 % (2.6-8.5); Neutrophils Absolute Auto 3.5 K/mm3 (1.3-6.7); Neutrophils Percent Auto 71.5 % (45.5-73.1); Platelet Count Result 256 k/mm3 (150-375); Red Blood Count 3.58 M/mm3 (4.2-5.4); Red Cell Distribution Width 21.6 % (11.5-14.5); White Blood Count 4.8 K/mm3 (4.5-10.0)
[2021-02-03 21:19] LABS: Alanine Aminotransferase 69 U/L (4-35); Albumin Level 3.4 g/dL (3.5-5.1); Alkaline Phosphatase 127 U/L (38-126); Anion Gap 9 mmol/L (8-16); Aspartate Amino Transferase 113 U/L (14-36); Bilirubin,Total 0.7 mg/dL (0.2-1.3); Blood Urea Nitrogen 16 mg/dL (7-17); Calcium 8.7 mg/dL (8.4-10.2); Carbon Dioxide 25 mmol/L (22-30); Chloride 109 mmol/L (98-107); Estimated CRCL calculation 62 ml/min; Estimated Glomerular Filt Rate > 60; Glucose 96 mg/dL (65-105); Lipase 32 U/L (23-300); Potassium 2.7 mmol/L (3.4-5.0); Sodium 143 mmol/L (137-145)
--- NOTE | 2021-02-03 22:15 | PC.NURSE ---
Patient aware of need for stool sample, patient unable to provide one at this time.
[2021-02-03 22:20] LABS: Add Urine Microscopic? YES; Appearance Urine Clear (Clear); Bilirubin Urine Negative (Negative); Blood Urine Negative (Negative); Color Urine Yellow (Yellow); Glucose Urine UA Negative (Negative); Ketones Urine 1+ mg/dL (Negative); Leukocyte Esterase Ur Negative LEU/UL (Negative); Mucus Urine Heavy /lpf; Nitrate Urine Negative (Negative); Protein Urine 1+ mg/dL (Negative); RBC Urine 0-2 /hpf (0-2); Squamous Epithelial Cell Urine Rare /hpf (Few); WBC Urine 0-3 /hpf
[2021-02-03 22:24] LABS: Specific Grav Ur 1.032 (1.001-1.035)
[2021-02-03 23:20] LABS: Magnesium 1.5 mg/dL (1.6-2.3)
[2021-02-03] MEDS: MAGNESIUM SULF 2 GM/WATER 50ML 2 GM/50 ML BAG IVPB (23:27)
[2021-02-04] VITALS (11 sets, daily range): BP systolic 116–154; BP diastolic 67–86; PULSE 60–81; RESP 16–20; TEMP 36.2–37.3; O2SAT 92–99; BMI 28.5
--- NOTE | 2021-02-04 00:15 | ADMGEN ---
This patient, Maryanne Chapman, was admitted to [facility] Surg Room 330-01. Patient/family oriented to hospital policies and general routines including ID bracelet, bed and alarms, visiting hours, pain management, procedures, bathroom and other care routines, personal items, smoking policy, room service/diet, and visiting hours. Information on how to activate the Rapid Response Team has been discussed. Patient/Family are encouraged to report perceived risks to care and to ask questions if they do not understand what they are told or what they should do.
[2021-02-04] MEDS: LACTATED RINGERS 1,000 ML 125 ML IV CONT (02:04)
--- NOTE | 2021-02-04 09:08 | PM.IMHP ---
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 Patient was evaluated August 2020 for anemia (Hgb 9-10 range) with workup including an EGD that showed mild gastritis and colonoscopy that showed diverticulosis and polyps with 2 polyps that were removed. Pathology showed a tubulovillous adenoma. Patient was on Xarelto for her atrial fibrillation when she saw the liner replacer in December 2020 for pacemaker generator replacement. Patient was noted to be anemic with a hemoglobin of 5.9. Iron studies consistent with iron deficinecy with normal B12/folate. The procedure was postponed. Xarelto wasstopped. There is a mention of that the patient had significant unintentional weight loss. Patient mentions to me that she has lost 40 lb over the past 6 months unintentionally. Wiliann seen by PCP on 01/14 and sent to the ED and pateint was admitted. Hgb 6.1 and she was transfued 2U PRBCs. EGD was repeated 01/16/2021 and again showing gastritis. A few lesions in the stomach were seen which were cauterized since there was concern they these may be oozing. Patient was also seen by oncology with plans for PET scan as an outpatient. CEA slightly elevated but normal CA19-9. Patient also was supposed to follow with GI for capsule endoscopy. She was discharged home on 01/18/2021. She has not followed up with these providers yet. Patient was seen again on January 29 for planned procedure to replace her pacemaker generator. She underwent the procedure and toelrated this well; she was discharged home the same day. The following day patient developed nausea, vomiting and diarrhea. She has had only 2 loose stools over the past few days. She states the vomiting does occur also with coughing as dry heaves. Cough is nonproductive. She complains of a dry throat. No fever or chills. Not eating much. She is tolerating liquids mostly. No melena or hematochezia. No hematemesis. No chest pain or palpitations. She has the weight loss as mentioned above. No dysuria or hematuria. She has noticed decreasing urine output but does have urinary frequency however this is chronic. Patient does have epigastric pain still but overall this has improved. She still has a ?band tight feeling across her upper abdomen. She states that she has been going ?downhill over the last year?. She used to walk around her house but because of falls, she started to use a cane then a walker. Even with a walker she was having falls and as such is mostly confined to her recliner. She is able to get up to a bedside commode. Her sister cares for her. She gets dizzy with standing. Her last fall was 2-3 months ago. No history of seizures or strokes. No history of spinal stenosis but does have chronic back pain. She states mostly she gets lightheaded with the dizziness and then her legs give out. He denies any depression or anxiety issues but does later states that she gets anxious if she sits in the chair to long. Patient was put on antibiotics after the generator replacement but was unable to take them. She presented emergency room because of continued symptoms. In the emergency department, patient was hemodynamically stable. Blood pressure is 170/87. Potassium was low at 2.7, Mag 1.5 with elevated AST/ALT. CT of the abdomen and pelvis mild airspace disease of the lung bases, prominent high density of the liver consistent with hemochromatosis, atrophic changes of the pancreas and mild thickening of the wall of the colon which may represent colitis. She did have moderate to severe degenerative disc disease noted as well. UA was unremarkable. Patient was given potassium and magnesium. She was started on Zosyn and Protonix. Zofran was given once. She was admitted for further care. Review of Systems Review of Systems: All systems reviewed &
[2021-02-04] MEDS: PANTOPRAZOLE SODIUM IV 40 MG VIAL IV PUSH (10:14)
[2021-02-04] MEDS: LACTATED RINGERS 1,000 ML 70 ML IV CONT (11:01)
[2021-02-04] MEDS: SUCRALFATE SUSP 100 MG/ML 10 ML UDC 1000 MG PO ×3 (11:02→22:40)
[2021-02-04] MEDS: AMIODARONE HCL 200 MG TABLET PO (11:02)
[2021-02-04 11:27] LABS: Basophils Percent Auto 0.4 % (0.2-1.2); Eosinophils Absolute Auto 0.1 K/mm3 (0-0.3); Eosinophils Percent Auto 2.9 % (0-4.4); Hematocrit 31.3 % (37.0-47.0); Hemoglobin 9.9 g/dL (12.0-15.0); Immature Granulocyte Absolute 0.09 K/mm3 (0.00-0.031); Lymphocytes Absolute Auto 0.88 K/mm3 (0.9-3.2); Lymphocytes Percent Auto 19.6 % (18.3-44.2); Mean Corpuscular HGB Conc 31.6 g/dl (32-36); Mean Corpuscular Hemoglobin 28.9 pg (26-34); Mean Corpuscular Volume 91.5 fl (80-100); Mean Platelet Volume 10.7 fl (7.4-10.4); Monocytes Absolute Auto 0.5 K/mm3 (0.1-0.6); Neutrophils Absolute Auto 2.9 K/mm3 (1.3-6.7); Neutrophils Percent Auto 65.1 % (45.5-73.1); Platelet Count Result 260 k/mm3 (150-375); Red Blood Count 3.42 M/mm3 (4.2-5.4); Red Cell Distribution Width 21.7 % (11.5-14.5); White Blood Count 4.5 K/mm3 (4.5-10.0)
[2021-02-04 11:36] LABS: Alanine Aminotransferase 65 U/L (4-35); Albumin Level 3.2 g/dL (3.5-5.1); Alkaline Phosphatase 113 U/L (38-126); Anion Gap 5 mmol/L (8-16); Aspartate Amino Transferase 117 U/L (14-36); Bilirubin,Total 0.6 mg/dL (0.2-1.3); Blood Urea Nitrogen 13 mg/dL (7-17); Calcium 8.3 mg/dL (8.4-10.2); Carbon Dioxide 28 mmol/L (22-30); Chloride 106 mmol/L (98-107); Estimated CRCL calculation 54 ml/min; Estimated Glomerular Filt Rate > 60; Glucose 111 mg/dL (65-105); Magnesium 1.8 mg/dL (1.6-2.3); Potassium 3.3 mmol/L (3.4-5.0); Sodium 139 mmol/L (137-145)
[2021-02-04 11:37] LABS: Phosphorus 2.7 mg/dL (2.5-4.5)
--- NOTE | 2021-02-04 12:01 | PHAR ---
PT'S HOME MED LINZESS 145 MCG CAPSULE VERIFIED BY PHARMACY
[2021-02-04 12:16] LABS: Thyroid Stimulating Hormone Reflex 0.155 uIU/mL (0.465-4.68)
[2021-02-04 13:34] LABS: Free T4 Free Thyroxine Reflex 3.86 ng/dL (0.78-2.19)
[2021-02-04] MEDS: MIDODRINE HCL 2.5 MG TABLET 5 MG PO ×2 (13:53→16:53)
[2021-02-04] MEDS: POTASSIUM CHLORIDE 20 MEQ TABLET 40 MEQ PO (15:09)
[2021-02-04] MEDS: metroNIDAZOLE 250 MG TABLET PO (22:40)
[2021-02-05] VITALS (13 sets, daily range): BP systolic 92–162; BP diastolic 48–76; PULSE 47–68; RESP 18–20; TEMP 36.1–36.8; O2SAT 92–97
[2021-02-05] MEDS: SUCRALFATE SUSP 100 MG/ML 10 ML UDC 1000 MG PO ×4 (05:22→20:29)
[2021-02-05 05:56] LABS: Hematocrit 28.8 % (37.0-47.0); Mean Corpuscular HGB Conc 31.3 g/dl (32-36); Mean Corpuscular Hemoglobin 28.4 pg (26-34); Mean Corpuscular Volume 90.9 fl (80-100); Mean Platelet Volume 10.6 fl (7.4-10.4); Platelet Count Result 234 k/mm3 (150-375); Red Blood Count 3.17 M/mm3 (4.2-5.4); Red Cell Distribution Width 21.2 % (11.5-14.5); White Blood Count 4.8 K/mm3 (4.5-10.0)
[2021-02-05 06:33] LABS: Alanine Aminotransferase 68 U/L (4-35); Albumin Level 2.8 g/dL (3.5-5.1); Alkaline Phosphatase 101 U/L (38-126); Anion Gap 4 mmol/L (8-16); Aspartate Amino Transferase 120 U/L (14-36); Bilirubin,Total 0.5 mg/dL (0.2-1.3); Blood Urea Nitrogen 10 mg/dL (7-17); Calcium 8.1 mg/dL (8.4-10.2); Carbon Dioxide 28 mmol/L (22-30); Chloride 106 mmol/L (98-107); Estimated CRCL calculation 62 ml/min; Estimated Glomerular Filt Rate > 60; Glucose 91 mg/dL (65-105); Magnesium 1.5 mg/dL (1.6-2.3); Potassium 3.1 mmol/L (3.4-5.0); Sodium 138 mmol/L (137-145)
[2021-02-05] MEDS: PANTOPRAZOLE SODIUM IV 40 MG VIAL IV PUSH (08:09)
[2021-02-05] MEDS: metroNIDAZOLE 250 MG TABLET PO ×4 (08:10→20:30)
[2021-02-05] MEDS: MIDODRINE HCL 2.5 MG TABLET 5 MG PO ×3 (08:10→16:15)
[2021-02-05] MEDS: CHOLECALCIFEROL 1,000 UNITS TABLET 1000 UNITS PO (08:10)
[2021-02-05] MEDS: FERROUS SULFATE 324 MG TABLET PO (08:10)
--- OUTSIDE RECORDS SUMMARY | 2021-02-05 09:56 | XMS_ITS ---
:1940 Author Care Team Providers Name Role Phone DR. LONG SYLVESTER Primary Care Provider [phone] DR. LONG SYLVESTER Referring Provider [phone] LONG SYLVESTER Primary Care Provider [phone] MARY GOMES MD OTHER [phone] Allergies Code Code System Name Reaction Severity Status Onset 1191 RxNorm Aspirin Other ? Active ? Medications Name Status Start Date Stop Date ? ? acetaminophen Active ? Not available 500mg prn amiodarone 200 mg tablet Active ? Not miriam ilable atenolol 25 mg tablet Completed ? 01/28/2019 Take 1 tablet every day by oral route. atenolol 50 mg tablet Completed ? 12/09/2018 ciprofloxacin 250 mg tablet Completed ? 12/17 duloxetine 20 mg capsule,delayed release Completed ? 01/28/2019 QD duloxetine 30 mg capsule,delayed Completed ? 05/17/2019 release lisinopril 20 mg tablet Completed ? 01/29/20 19 Take 1 tablet every day by oral route. lisinopril 40 mg tablet Completed ? 12/09/19 19 midodrine 2.5 mg tablet Active ? Not avai lable Xarelto 20 mg tablet Active ? Not availab le Notes: otc tylenol Problems Name Status Onset Date Source ? Essential Hypertension Active 03/04/2018 ? Sick Sinus Syndrome Active 03/04/2018 ? Low Back Pain Active 03/04/2018 ? Postmenopausal State Active 03/04/2018 ? Fracture of Forearm Active ? ? Closed Fracture of Shaft of Metacarpal Bone Active ? ? Notes: Has pacemaker cardiologis t Dr. Carranza
--- OUTSIDE RECORDS SUMMARY | 2021-02-05 09:56 | XMS_ITS ---
:1940 Author Care Team Providers Name Role Phone JAMES ASHLEY Primary Care Provider [phone] Allergies Code Code System Name Reaction Severity Status Onset 1191 RxNorm Aspirin ? ? Active ? Medications Name Status Start Date Stop Date ? ? acetaminophen 300 mg-codeine 30 mg tablet Active ? Not available TAKE 1 TABLET BY MOUTH THREE TIMES DAILY NEEDED FOR 10 DAYS amiodarone 200 mg tablet Active ? Not miriam ilable atenolol 50 mg tablet Completed ? 12/02/2019 Bactrim DS 800 mg-160 mg tablet Unknown ? Not available Take 1 tablet every 12 hours by oral route for 10 days. diclofenac sodium 75 mg tablet,delayed release Active ? Not available Take 1 tablet twice a day by oral route for 30 days. lisinopril 40 mg tablet Completed ? 12/02/19 20 midodrine 2.5 mg tablet Active ? Not avai lable tramadol 50 mg tablet Completed ? 12/02/2019 Xarelto 20 mg tablet Active ? Not availab le Problems Name Status Onset Date Source ? Coronary Arteriosclerosis Active ? Encoun ter Biceps Tendinitis Active ? Encounter Chest Wall Pain Active ? Encounter Procedures Date Name Performed by ? ? Appendectomy Information not avai lable ? Pacemaker Information not avai lable 04/15/2016 XR, Chest, 2 View Information not avai lable 12/09/2019 XR, Thoracic Spine, 2 View [place] Meryl [address] [place] [address]
--- OUTSIDE RECORDS SUMMARY | 2021-02-05 09:57 | XMS_ITS ---
:1939 Author Care Team Providers Name Role Phone DR. LONG SYLVESTER Primary Care Provider [phone] DR. LONG SYLVESTER Referring Provider [phone] LONG SYLVESTER Primary Care Provider [phone] MARY GOMES MD OTHER [phone] Allergies Code Code System Name Reaction Severity [...]
--- OUTSIDE RECORDS SUMMARY | 2021-02-05 09:58 | XMS_ITS ---
:1940 Author Care Team Providers Name Role Phone JAMES ASHLEY Primary Care Provider [phone] Allergies Code Code System Name Reaction Severity [...] lable 12/09/2019 XR, Thoracic Spine, 2 View [place] Meryl ging [address] [place] [address]
[2021-02-05] MEDS: LACTATED RINGERS 1,000 ML 70 ML IV CONT (10:00)
--- OUTSIDE RECORDS SUMMARY | 2021-02-05 10:23 | XMS_ITS ---
:1940 Author Care Team Providers Name Role Phone DR. LONG SYLVESTER Primary Care Provider [phone] DR. LONG SYLVESTER Referring Provider [phone] LONG SYLVESTER Primary Care Provider [phone] MARY GOMES MD OTHER [phone] Allergies Code Code System Name Reaction Severity [...]
--- OUTSIDE RECORDS SUMMARY | 2021-02-05 10:23 | XMS_ITS ---
:1940 Author Care Team Providers Name Role Phone JAMES ASHLEY Primary Care Provider [phone] Allergies Code Code System Name Reaction Severity [...] lable 12/09/2019 XR, Thoracic Spine, 2 View [place] Meryl ging [address] [place] [address]
[2021-02-05] MEDS: MAGNESIUM SULF 2 GM/WATER 50ML 2 GM/50 ML BAG IVPB ×2 (10:25→16:16)
[2021-02-05] MEDS: MORPHINE SULFATE (*CRX) 2 MG/ML INJ IV PUSH (10:30)
--- NOTE | 2021-02-05 13:29 | PM.CNCAR ---
Assessment and Plan Assessment and plan (1) Abnormal liver CT: Code(s): R93.2 - Abnormal findings on diagnostic imaging of liver and biliary tract Status: Acute Assessment and Plan: Possibly amiodarone related. At this point I think that it is reasonable to stop her amiodarone. There is liver concerns as well as thyroid concerns for amiodarone related side effects. Will continue to monitor her rhythm. (2) Pacemaker: Code(s): Z95.0 - Presence of cardiac pacemaker Status: Acute Assessment and Plan: Status post generator change. Bandage was removed. The superior aspect of the dressing was already loose. The incision itself was clean dry and intact. The medial and inferior dressing was removed without complication. It was left try to open to open air. (3) Abnormal TSH: Code(s): R79.89 - Other specified abnormal findings of blood chemistry Status: Acute Assessment and Plan: Certainly amiodarone may be a possibility in causing the low TSH and high T4 levels. (4) Symptomatic anemia: Code(s): D64.9 - Anemia, unspecified Status: Acute Assessment and Plan: Off Xarelto for now. If long-term she is not a candidate for anticoagulation, she could be referred to [facility] or elsewhere for consideration of a Watchman device. Decision as an outpatient (5) Atrial fibrillation: Code(s): I48.91 - Unspecified atrial fibrillation Status: Acute Assessment and Plan: In sinus rhythm (6) Electrolyte abnormality: Code(s): E87.8 - Other disorders of electrolyte and fluid balance, not elsewhere classified Status: Acute Assessment and Plan: Significantly hypokalemic and hypomagnesemic. Will replace her potassium 40 mg p.o. times 1 and 4 g IV magnesium History of Present Illness History of Present Illness Consult date/time: 02/05/21 13:29 Requesting physician: Guillermo Hays MD Consult reason: Other (Concern for amiodarone toxicity) Reason For Visit: Pancolitis, hypokalemia Narrative: Date of service 02/05/2021 History: Patient is an 80-year-old female who has a history of tachybrady syndrome status post pacemaker implantation, tachy-padmaja syndrome, paroxysmal atrial fibrillation. She recently had a generator change by Dr. Borden last week. She was admitted 2 days ago because of nausea, vomiting and abdominal discomfort. CT scan of the abdomen is concerning for colitis as well as enhancement in the liver concerning for hemochromatosis versus amiodarone toxicity. Her thyroid function is also slightly abnormal as her TSH is low and her T4 level is high. Because of these findings, Cardiology consultation was requested. She also has a history of significant anemia and her Xarelto has been held. There has also been a multitude of other abnormalities lately including a tubulovillous adenoma significant weight loss, iron deficiency anemia, gastritis. From a cardiac perspective she seems to be doing okay. Her generator change was uneventful. She denies any chest pain, shortness of breath, syncope, presyncope, paroxysmal nocturnal dyspnea, orthopnea, edema palpitations. Review of Systems Review of Systems: All systems reviewed & are unremarkable except as noted in HPI and below Constitutional: Constitutional: Reports lethargy and Reports weakness Eyes: Eyes: Denies blurry vision ENT: Reports Normal hearing present Cardiovascular: Cardiovascular: Denies chest pain and Denies leg edema Respiratory: Respiratory: Denies dyspnea Gastrointestinal: Gastrointestinal: Reports abdominal pain, Reports bloating, Reports nausea and Reports vomiting Genitourinary: Genitourinary: Denies flank pain Musculoskeletal: Musculoskeletal: Denies back pain and Denies neck pain Integumentary/Breasts: Skin/Breast: Denies dry skin Neurologic: Denies headache(s) and Denies numbness Psychiatric: Psychiatric: Denies anxiety Endocrine: Endocrine: Efren
--- NOTE | 2021-02-05 15:30 | PM.IMPN ---
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 Patient was evaluated August 2020 for anemia (Hgb 9-10 range) with workup including an EGD that showed mild gastritis and colonoscopy that showed diverticulosis and polyps with 2 polyps that were removed. Pathology showed a tubulovillous adenoma. Patient was on Xarelto for her atrial fibrillation when she saw the gas load dispatcher in December 2020 for pacemaker generator replacement. Patient was noted to be anemic with a hemoglobin of 5.9. Iron studies consistent with iron deficinecy with normal B12/folate. The procedure was postponed. Xarelto was stopped. There is a mention of that the patient had significant unintentional weight loss. Patient mentions to me that she has lost 40 lb over the past 6 months unintentionally. Wiliann seen by PCP on 01/14 and sent to the ED and pateint was admitted. Hgb 6.1 and she was transfued 2U PRBCs. EGD was repeated 01/16/2021 and again showing gastritis. A few lesions in the stomach were seen which were cauterized since there was concern these may be oozing. Patient was also seen by oncology with plans for PET scan as an outpatient. CEA slightly elevated but normal CA19-9. Patient also was supposed to follow with GI for capsule endoscopy. She was discharged home on 01/18/2021. She has not followed up with these providers yet. Patient was seen again on January 29 for planned procedure to replace her pacemaker generator. She underwent the procedure and toelrated this well; she was discharged home the same day. The following day patient developed nausea, vomiting and diarrhea. She has had only 2 loose stools over the past few days. She states the vomiting does occur also with coughing as dry heaves. Cough is nonproductive. She complains of a dry throat. No fever or chills. Not eating much. She is tolerating liquids mostly. No melena or hematochezia. No hematemesis. No chest pain or palpitations. She has the weight loss as mentioned above. No dysuria or hematuria. She has noticed decreasing urine output but does have urinary frequency however this is chronic. Patient does have epigastric pain still but overall this has improved. She still has a ?band tight feeling across her upper abdomen. She states that she has been going ?downhill over the last year?. She used to walk around her house but because of falls, she started to use a cane then a walker. Even with a walker she was having falls and as such is mostly confined to her recliner. She is able to get up to a bedside commode. Her sister cares for her. She gets dizzy with standing. Her last fall was 2-3 months ago. No history of seizures or strokes. No history of spinal stenosis but does have chronic back pain. She states mostly she gets lightheaded with the dizziness and then her legs give out. He denies any depression or anxiety issues but does later states that she gets anxious if she sits in the chair to long. Patient was put on antibiotics after the generator replacement but was unable to take them. She presented emergency room because of continued symptoms. In the emergency department, patient was hemodynamically stable. Blood pressure is 170/87. Potassium was low at 2.7, Mag 1.5 with elevated AST/ALT. CT of the abdomen and pelvis mild airspace disease of the lung bases, prominent high density of the liver consistent with hemochromatosis, atrophic changes of the pancreas and mild thickening of the wall of the colon which may represent colitis. She did have moderate to severe degenerative disc disease noted as well. UA was unremarkable. Patient was given potassium and magnesium. She was started on Zosyn and Protonix. Zofran was given once. She was admitted for further care. # Nausea, vomting/diarrhe: CT scan with possible colitis. likely viral. also has elevated liver enzymes. stopped antibiotics and follow clinically. #
[2021-02-06] VITALS (9 sets, daily range): BP systolic 81–151; BP diastolic 50–98; PULSE 59–62; RESP 16–20; TEMP 36.2–36.6; O2SAT 94–96
[2021-02-06] MEDS: SUCRALFATE SUSP 100 MG/ML 10 ML UDC 1000 MG PO ×4 (05:10→20:36)
[2021-02-06] MEDS: MORPHINE SULFATE (*CRX) 2 MG/ML INJ IV PUSH ×2 (05:14→23:52)
[2021-02-06 06:30] LABS: Basophils Percent Auto 0.7 % (0.2-1.2); Eosinophils Absolute Auto 0.2 K/mm3 (0-0.3); Eosinophils Percent Auto 4.8 % (0-4.4); Hematocrit 28.3 % (37.0-47.0); Hemoglobin 8.8 g/dL (12.0-15.0); Immature Granulocyte Absolute 0.06 K/mm3 (0.00-0.031); Immature Granulocyte Percent A 1.3 % (0-0.5); Lymphocytes Absolute Auto 1.07 K/mm3 (0.9-3.2); Lymphocytes Percent Auto 23.5 % (18.3-44.2); Mean Corpuscular HGB Conc 31.1 g/dl (32-36); Mean Corpuscular Hemoglobin 29.1 pg (26-34); Mean Corpuscular Volume 93.7 fl (80-100); Mean Platelet Volume 11.1 fl (7.4-10.4); Monocytes Absolute Auto 0.4 K/mm3 (0.1-0.6); Neutrophils Absolute Auto 2.8 K/mm3 (1.3-6.7); Neutrophils Percent Auto 60.7 % (45.5-73.1); Platelet Count Result 220 k/mm3 (150-375); Red Blood Count 3.02 M/mm3 (4.2-5.4); Red Cell Distribution Width 21.5 % (11.5-14.5); White Blood Count 4.6 K/mm3 (4.5-10.0)
[2021-02-06] MEDS: LACTATED RINGERS 1,000 ML 70 ML IV CONT (06:30)
[2021-02-06 06:40] LABS: Alanine Aminotransferase 70 U/L (4-35); Albumin Level 2.6 g/dL (3.5-5.1); Alkaline Phosphatase 96 U/L (38-126); Anion Gap 1 mmol/L (8-16); Aspartate Amino Transferase 118 U/L (14-36); Bilirubin,Total 0.2 mg/dL (0.2-1.3); Blood Urea Nitrogen 10 mg/dL (7-17); Calcium 7.4 mg/dL (8.4-10.2); Carbon Dioxide 29 mmol/L (22-30); Chloride 106 mmol/L (98-107); Estimated CRCL calculation 54 ml/min; Estimated Glomerular Filt Rate > 60; Glucose 94 mg/dL (65-105); Potassium 3.3 mmol/L (3.4-5.0); Sodium 136 mmol/L (137-145)
[2021-02-06] MEDS: CHOLECALCIFEROL 1,000 UNITS TABLET 1000 UNITS PO (08:31)
[2021-02-06] MEDS: FERROUS SULFATE 324 MG TABLET PO (08:32)
[2021-02-06] MEDS: MIDODRINE HCL 2.5 MG TABLET 5 MG PO ×3 (08:33→16:13)
[2021-02-06] MEDS: metroNIDAZOLE 250 MG TABLET PO ×4 (08:33→20:36)
[2021-02-06] MEDS: PANTOPRAZOLE SODIUM IV 40 MG VIAL IV PUSH (08:34)
--- NOTE | 2021-02-06 08:50 | PC.NURSE ---
Nurse Present during vitals, patient did not complain of any light headed or dizziness while in supine position
--- NOTE | 2021-02-06 08:51 | PC.NURSE ---
Nurse present, patient complained of light headedness, head began to drop, heavy breathing, and tingling in feet/toe happened. Nurse decided unsafe to do standing pressure with current conditions
[2021-02-06] MEDS: POTASSIUM CHLORIDE 20 MEQ TABLET 40 MEQ PO ×2 (08:55→10:18)
--- NOTE | 2021-02-06 10:00 | PM.PNCARD ---
Progress Note: A&P Assessment and Plan (1) Abnormal liver CT: Code(s): R93.2 - Abnormal findings on diagnostic imaging of liver and biliary tract Status: Acute Assessment and Plan: Possibly amiodarone related. At this point I think that it is reasonable to stop her amiodarone. There is liver concerns as well as thyroid concerns for amiodarone related side effects. DC telemetry. (2) Pacemaker: Code(s): Z95.0 - Presence of cardiac pacemaker Status: Acute Assessment and Plan: Status post generator change. Bandage was removed. The superior aspect of the dressing was already loose. The incision itself was clean dry and intact. The medial and inferior dressing was removed without complication. It was left try to open to open air. (3) Abnormal TSH: Code(s): R79.89 - Other specified abnormal findings of blood chemistry Status: Acute Assessment and Plan: Certainly amiodarone may be a possibility in causing the low TSH and high T4 levels. (4) Symptomatic anemia: Code(s): D64.9 - Anemia, unspecified Status: Acute Assessment and Plan: Off Xarelto for now. If long-term she is not a candidate for anticoagulation, she could be referred to [place] or elsewhere for consideration of a Watchman device. Decision as an outpatient (5) Atrial fibrillation: Code(s): I48.91 - Unspecified atrial fibrillation Status: Acute Assessment and Plan: In sinus rhythm (6) Electrolyte abnormality: Code(s): E87.8 - Other disorders of electrolyte and fluid balance, not elsewhere classified Status: Acute Assessment and Plan: Significantly hypokalemic and hypomagnesemic. Given additional dose of 40 mEq of potassium x1 DC IV fluids Subjective Date/time seen: 02/06/21 10:00 80-year-old admitted for nausea, vomiting. Date of service 02/06/2021: She feels okay. Eating breakfast. No chest pain or shortness of breath Review of Systems Review of Systems: All systems reviewed & are unremarkable except as noted in HPI and below Constitutional: Constitutional: Denies fatigue, Denies headache(s), Reports lethargy and Reports weakness Eyes: Eyes: Denies blurry vision ENT: Reports Normal hearing present, Denies headache(s) and Denies neck pain Cardiovascular: Cardiovascular: Denies chest pain, Denies leg edema and Denies dyspnea Respiratory: Respiratory: Denies dyspnea Gastrointestinal: Gastrointestinal: Reports abdominal pain, Reports bloating, Reports nausea and Reports vomiting Genitourinary: Genitourinary: Denies flank pain Musculoskeletal: Musculoskeletal: Denies back pain, Denies neck pain and Denies numbness Integumentary/Breasts: Skin/Breast: Denies dry skin Neurologic: Reports Normal hearing present, Denies headache(s), Denies numbness and Reports weakness Psychiatric: Psychiatric: Denies anxiety Endocrine: Endocrine: Denies fatigue and Denies flushing Hematologic/Lymphatic: Hematologic/Lymphatic: Reports as per HPI, Denies easy bleeding and Denies easy bruising Allergic/Immunologic: Allergic/Immunologic: Denies GI upset with certain foods Exam Narrative: Exam Narrative: Awake alert oriented appears stated age. Const: General: comfortable and no acute distress HENMT: General nose exam: Normal nares present Eyes: Sclera: sclerae normal Neck: Neck: supple and no JVD Chest: Other: No reproducible chest wall pain to palpation. Left upper chest incision is clean dry and intact Resp: Auscultation: clear to auscultation bilaterally Cardio: Rate: regular rate Rhythm: regular rhythm GI: Inspection: normal to inspection Skin: General skin exam: normal color Other: Generator change incision is clean, dry and intact Neuro: Cranial nerves: Yes Normal hearing present Cognition (Neuro): normal cognition Speech: normal speech Extrem: General: no edema and no pedal edema Psych: Mental Status: mental status
[2021-02-06] MEDS: ONDANSETRON INJ 4 MG/2 ML VIAL IV PUSH ×2 (10:19→14:37)
--- NOTE | 2021-02-06 14:31 | PCOTNOTE ---
Attempted therapy session with patient, but patient refused stating she was feeling too nauseous and had an upset stomach. Patient refused all ADLs, exercises and functional transfers. Nursing notified of patient's nausea.
--- NOTE | 2021-02-06 14:58 | PCPTNOTE ---
Patient refused treatment this session due to not feeling well. Patient states that she is sick to her stomach and will try therapy tomorrow. Will continue per plan of care. Aure Acosta, BLOCK SORTER
[2021-02-07] VITALS (9 sets, daily range): BP systolic 90–153; BP diastolic 40–81; PULSE 57–110; RESP 16–22; TEMP 36.3–37.1; O2SAT 92–99
[2021-02-07] MEDS: METOCLOPRAMIDE HCL INJ 10 MG/2 ML VIAL 5 MG IV PUSH ×3 (00:05→15:30)
[2021-02-07] MEDS: ONDANSETRON INJ 4 MG/2 ML VIAL IV PUSH ×2 (01:57→06:27)
[2021-02-07] MEDS: SUCRALFATE SUSP 100 MG/ML 10 ML UDC 1000 MG PO ×4 (05:47→20:05)
[2021-02-07 06:09] LABS: Basophils Percent Auto 0.7 % (0.2-1.2); Eosinophils Absolute Auto 0.2 K/mm3 (0-0.3); Eosinophils Percent Auto 3.6 % (0-4.4); Hematocrit 30.6 % (37.0-47.0); Hemoglobin 9.7 g/dL (12.0-15.0); Immature Granulocyte Absolute 0.06 K/mm3 (0.00-0.031); Lymphocytes Absolute Auto 1.76 K/mm3 (0.9-3.2); Lymphocytes Percent Auto 29.9 % (18.3-44.2); Mean Corpuscular HGB Conc 31.7 g/dl (32-36); Mean Corpuscular Hemoglobin 29.4 pg (26-34); Mean Corpuscular Volume 92.7 fl (80-100); Mean Platelet Volume 11.2 fl (7.4-10.4); Monocytes Absolute Auto 0.5 K/mm3 (0.1-0.6); Monocytes Percent Auto 8.5 % (2.6-8.5); Neutrophils Absolute Auto 3.3 K/mm3 (1.3-6.7); Neutrophils Percent Auto 56.3 % (45.5-73.1); Platelet Count Result 243 k/mm3 (150-375); Red Cell Distribution Width 22.2 % (11.5-14.5); White Blood Count 5.9 K/mm3 (4.5-10.0)
[2021-02-07 06:31] LABS: Potassium 4.3 mmol/L (3.4-5.0)
[2021-02-07 06:42] LABS: Alanine Aminotransferase 84 U/L (4-35); Albumin Level 2.9 g/dL (3.5-5.1); Alkaline Phosphatase 108 U/L (38-126); Anion Gap 2 mmol/L (8-16); Aspartate Amino Transferase 152 U/L (14-36); Bilirubin,Total 0.4 mg/dL (0.2-1.3); Blood Urea Nitrogen 10 mg/dL (7-17); Calcium 8.3 mg/dL (8.4-10.2); Carbon Dioxide 27 mmol/L (22-30); Chloride 106 mmol/L (98-107); Estimated CRCL calculation 54 ml/min; Estimated Glomerular Filt Rate > 60; Glucose 93 mg/dL (65-105); Magnesium 1.7 mg/dL (1.6-2.3); Sodium 135 mmol/L (137-145)
[2021-02-07] MEDS: MIDODRINE HCL 2.5 MG TABLET 5 MG PO ×3 (08:54→16:55)
[2021-02-07] MEDS: CHOLECALCIFEROL 1,000 UNITS TABLET 1000 UNITS PO (08:54)
[2021-02-07] MEDS: PANTOPRAZOLE SODIUM IV 40 MG VIAL IV PUSH (08:55)
[2021-02-07] MEDS: metroNIDAZOLE 250 MG TABLET PO ×2 (08:55→12:00)
[2021-02-07] MEDS: FERROUS SULFATE 324 MG TABLET PO (08:55)
--- NOTE | 2021-02-07 09:25 | PCOTNOTE ---
Attempted to see patient this AM for skilled OT session. Patient awake and lying in bed upon entry. Patient refused treatment multiple times this attempt due to increased nausea, reporting of 8/10 stomach pressure and tightness. RN and Dr cespedes. Will attempt to see patient a second time this date. Continue per Plan of Care.
--- NOTE | 2021-02-07 10:46 | PC.NURSE ---
patient complained of nausea, nurse notified, but no other symptoms
--- NOTE | 2021-02-07 10:47 | PC.NURSE ---
Patient began heavy breathing upon being told she had to sit at bedside. No other complaints
--- NOTE | 2021-02-07 10:50 | PM.PNCARD ---
Progress Note: A&P Assessment and Plan (1) Abnormal liver CT: Code(s): R93.2 - Abnormal findings on diagnostic imaging of liver and biliary tract Status: Acute Assessment and Plan: Possibly amiodarone related. At this point I think that it is reasonable to stop her amiodarone. There is liver concerns as well as thyroid concerns for amiodarone related side effects. DC telemetry. (2) Pacemaker: Code(s): Z95.0 - Presence of cardiac pacemaker Status: Acute Assessment and Plan: Status post generator change. Bandage was removed. The superior aspect of the dressing was already loose. The incision itself was clean dry and intact. The medial and inferior dressing was removed without complication. It was left try to open to open air. (3) Abnormal TSH: Code(s): R79.89 - Other specified abnormal findings of blood chemistry Status: Acute Assessment and Plan: Certainly amiodarone may be a possibility in causing the low TSH and high T4 levels. (4) Symptomatic anemia: Code(s): D64.9 - Anemia, unspecified Status: Acute Assessment and Plan: Off Xarelto for now. If long-term she is not a candidate for anticoagulation, she could be referred to [facility] or elsewhere for consideration of a Watchman device. Decision as an outpatient (5) Atrial fibrillation: Code(s): I48.91 - Unspecified atrial fibrillation Status: Acute Assessment and Plan: In sinus rhythm (6) Electrolyte abnormality: Code(s): E87.8 - Other disorders of electrolyte and fluid balance, not elsewhere classified Status: Acute Assessment and Plan: Magnesium 2 g IV x1 Subjective Date/time seen: 02/07/21 10:50 Interval history: 80-year-old admitted because of nausea vomiting. Date of service 02/07/2021: She feels is worse today. She is vomiting currently. No chest pain or shortness of breath. No swelling Review of Systems Review of Systems: All systems reviewed & are unremarkable except as noted in HPI and below Constitutional: Constitutional: Denies fatigue, Denies headache(s), Reports lethargy and Reports weakness Eyes: Eyes: Denies blurry vision ENT: Reports Normal hearing present, Denies headache(s) and Denies neck pain Cardiovascular: Cardiovascular: Denies chest pain, Denies leg edema and Denies dyspnea Respiratory: Respiratory: Denies dyspnea Gastrointestinal: Gastrointestinal: Reports abdominal pain, Reports bloating, Reports nausea and Reports vomiting Genitourinary: Genitourinary: Denies flank pain Musculoskeletal: Musculoskeletal: Denies back pain, Denies neck pain and Denies numbness Integumentary/Breasts: Skin/Breast: Denies dry skin Neurologic: Reports Normal hearing present, Denies headache(s), Denies numbness and Reports weakness Psychiatric: Psychiatric: Denies anxiety Endocrine: Endocrine: Denies fatigue and Denies flushing Hematologic/Lymphatic: Hematologic/Lymphatic: Reports as per HPI, Denies easy bleeding and Denies easy bruising Allergic/Immunologic: Allergic/Immunologic: Denies GI upset with certain foods Exam Narrative: Exam Narrative: Awake alert oriented appears stated age. Const: General: comfortable and no acute distress HENMT: General nose exam: Normal nares present Eyes: Sclera: sclerae normal Neck: Neck: supple and no JVD Chest: Other: No reproducible chest wall pain to palpation. Left upper chest incision is clean dry and intact Resp: Auscultation: clear to auscultation bilaterally Cardio: Rate: regular rate Rhythm: regular rhythm GI: Inspection: normal to inspection Skin: General skin exam: normal color Other: Generator change incision is clean, dry and intact Neuro: Cranial nerves: Yes Normal hearing present Cognition (Neuro): normal cognition Speech: normal speech Extrem: General: no edema and no pedal edema Psych: Mental Status: mental status grossly normal Objective Data V
--- NOTE | 2021-02-07 10:50 | PC.NURSE ---
patient continued heavy breathing, stood fine, no other complaints or symptoms
[2021-02-07] MEDS: MAGNESIUM SULF 2 GM/WATER 50ML 2 GM/50 ML BAG IVPB (10:57)
--- NOTE | 2021-02-07 11:11 | PM.IMPN ---
Progress Note: A&P Assessment and Plan (1) Electrolyte abnormality: Code(s): E87.8 - Other disorders of electrolyte and fluid balance, not elsewhere classified Status: Acute (2) Nausea and vomiting: Code(s): R11.2 - Nausea with vomiting, unspecified Status: Acute (3) Abnormal liver CT: Code(s): R93.2 - Abnormal findings on diagnostic imaging of liver and biliary tract Status: Acute (4) Liver function test abnormality: Code(s): R94.5 - Abnormal results of liver function studies Status: Acute (5) Atrial fibrillation: Code(s): I48.91 - Unspecified atrial fibrillation Status: Acute (6) Pancolitis: Code(s): K51.00 - Ulcerative (chronic) pancolitis without complications Status: Acute (7) Hypokalemia: Code(s): E87.6 - Hypokalemia Status: Acute (8) Gastritis: Code(s): K29.70 - Gastritis, unspecified, without bleeding Status: Acute (9) Generalized weakness: Code(s): R53.1 - Weakness Status: Acute Additional Plan 80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 Patient was evaluated August 2020 for anemia (Hgb 9-10 range) with workup including an EGD that showed mild gastritis and colonoscopy that showed diverticulosis and polyps with 2 polyps that were removed. Pathology showed a tubulovillous adenoma. Patient was on Xarelto for her atrial fibrillation when she saw the skein tier in December 2020 for pacemaker generator replacement. Patient was noted to be anemic with a hemoglobin of 5.9. Iron studies consistent with iron deficinecy with normal B12/folate. The procedure was postponed. Xarelto was stopped. There is a mention of that the patient had significant unintentional weight loss. Patient mentions to me that she has lost 40 lb over the past 6 months unintentionally. Wilianjimi seen by PCP on 01/14 and sent to the ED and pateint was admitted. Hgb 6.1 and she was transfued 2U PRBCs. EGD was repeated 01/16/2021 and again showing gastritis. A few lesions in the stomach were seen which were cauterized since there was concern these may be oozing. Patient was also seen by oncology with plans for PET scan as an outpatient. CEA slightly elevated but normal CA19-9. Patient also was supposed to follow with GI for capsule endoscopy. She was discharged home on 01/18/2021. She has not followed up with these providers yet. Patient was seen again on January 29 for planned procedure to replace her pacemaker generator. She underwent the procedure and toelrated this well; she was discharged home the same day. The following day patient developed nausea, vomiting and diarrhea. She has had only 2 loose stools over the past few days. She states the vomiting does occur also with coughing as dry heaves. Cough is nonproductive. She complains of a dry throat. No fever or chills. Not eating much. She is tolerating liquids mostly. No melena or hematochezia. No hematemesis. No chest pain or palpitations. She has the weight loss as mentioned above. No dysuria or hematuria. She has noticed decreasing urine output but does have urinary frequency however this is chronic. Patient does have epigastric pain still but overall this has improved. She still has a ?band tight feeling across her upper abdomen. She states that she has been going ?downhill over the last year?. She used to walk around her house but because of falls, she started to use a cane then a walker. Even with a walker she was having falls and as such is mostly confined to her recliner. She is able to get up to a bedside commode. Her sister cares for her. She gets dizzy with standing. Her last fall was 2-3 months ago. No history of seizures or strokes. No history of spinal stenosis but does have chronic back pain. She states mostly she gets lightheaded with the dizziness and then her legs give out. He denies any depression or anxiety i
[2021-02-07] MEDS: SODIUM CHLORIDE 0.9% IV 1,000 ML 50 ML IV CONT (11:40)
[2021-02-07] MEDS: VANCOMYCIN ORAL 125 MG/2.5 ML SYRUP PO (16:55)
--- NOTE | 2021-02-07 23:25 | PCCARD ---
2200: Patient experienced orthostasis w/ BP 90/40. No apparent distress noted and no c/o reported. Will continue to monitor.
[2021-02-08] VITALS (8 sets, daily range): BP systolic 82–166; BP diastolic 31–80; PULSE 65–96; RESP 20; TEMP 36.3–37.2; O2SAT 93–95
[2021-02-08] MEDS: METOCLOPRAMIDE HCL INJ 10 MG/2 ML VIAL 5 MG IV PUSH ×4 (03:05→20:28)
[2021-02-08] MEDS: SODIUM CHLORIDE 0.9% IV 1,000 ML 50 ML IV CONT (07:57)
[2021-02-08] MEDS: SUCRALFATE SUSP 100 MG/ML 10 ML UDC 1000 MG PO ×4 (08:00→20:28)
[2021-02-08] MEDS: CHOLECALCIFEROL 1,000 UNITS TABLET 1000 UNITS PO (08:05)
[2021-02-08] MEDS: MIDODRINE HCL 2.5 MG TABLET 5 MG PO ×3 (08:05→17:48)
[2021-02-08] MEDS: FERROUS SULFATE 324 MG TABLET PO (08:05)
[2021-02-08] MEDS: PANTOPRAZOLE SODIUM IV 40 MG VIAL IV PUSH (08:05)
--- NOTE | 2021-02-08 11:27 | PCNFU ---
Nutrition Follow-Up Complete: Inadequate Oral Intake as related to constipation as evidenced by poor po intake reported Goal: adequate Intake of at least 75% of meals/supplements Progressing towards goal. We will continue current goal. Pt current nutrition is Heart Healthy. Last recorded weight is 75.5 kg, no new weight to report. Bowel Motility:+BM reported 02/06 Labs Reviewed:Na 135,Hct 30.6,Hgb 9.7 Meds Noted:Protonix,Zofran,Reglan,Vit D, NS,Carafate. Additional Notes: Patient seen today for nutrition follow up. She states to eating toast and sausage today. No nausea or vomiting reported with meal. She did request fruit and cottage cheese which was clear by RD due to lack of appetite. Ensure compact discontinued, supplements piled on tray in room. PO intake is encouraged. Monitoring: Monitoring every 5 days.
--- NOTE | 2021-02-08 13:46 | PM.PNCARD ---
Progress Note: A&P Assessment and Plan (1) Abnormal liver CT: Code(s): R93.2 - Abnormal findings on diagnostic imaging of liver and biliary tract Status: Acute Assessment and Plan: Possibly amiodarone related. At this point I think that it is reasonable to stop her amiodarone. There is liver concerns as well as thyroid concerns for amiodarone related side effects. (2) Pacemaker: Code(s): Z95.0 - Presence of cardiac pacemaker Status: Acute Assessment and Plan: Status post generator change. Bandage was removed. The superior aspect of the dressing was already loose. The incision itself was clean dry and intact. The medial and inferior dressing was removed without complication. It was left try to open to open air. (3) Abnormal TSH: Code(s): R79.89 - Other specified abnormal findings of blood chemistry Status: Acute Assessment and Plan: Certainly amiodarone may be a possibility in causing the low TSH and high T4 levels. (4) Symptomatic anemia: Code(s): D64.9 - Anemia, unspecified Status: Acute Assessment and Plan: Off Xarelto for now. If long-term she is not a candidate for anticoagulation, she could be referred to [place] or elsewhere for consideration of a Watchman device. Decision as an outpatient (5) Atrial fibrillation: Code(s): I48.91 - Unspecified atrial fibrillation Status: Acute Assessment and Plan: In sinus rhythm (6) Electrolyte abnormality: Code(s): E87.8 - Other disorders of electrolyte and fluid balance, not elsewhere classified Status: Acute Assessment and Plan: Will check a BMP and magnesium tomorrow Subjective Date/time seen: 02/08/21 13:46 Interval history: 80-year-old admitted because of nausea vomiting. Date of service 02/08/2021: Feels little better today. No chest pain or shortness of breath. No swelling Review of Systems Review of Systems: All systems reviewed & are unremarkable except as noted in HPI and below Constitutional: Constitutional: Denies fatigue, Denies headache(s), Reports lethargy and Reports weakness Eyes: Eyes: Denies blurry vision ENT: Reports Normal hearing present, Denies headache(s) and Denies neck pain Cardiovascular: Cardiovascular: Denies chest pain, Denies leg edema and Denies dyspnea Respiratory: Respiratory: Denies dyspnea Gastrointestinal: Gastrointestinal: Reports abdominal pain, Reports bloating, Reports nausea and Reports vomiting Genitourinary: Genitourinary: Denies flank pain Musculoskeletal: Musculoskeletal: Denies back pain, Denies neck pain and Denies numbness Integumentary/Breasts: Skin/Breast: Denies dry skin Neurologic: Reports Normal hearing present, Denies headache(s), Denies numbness and Reports weakness Psychiatric: Psychiatric: Denies anxiety Endocrine: Endocrine: Denies fatigue and Denies flushing Hematologic/Lymphatic: Hematologic/Lymphatic: Reports as per HPI, Denies easy bleeding and Denies easy bruising Allergic/Immunologic: Allergic/Immunologic: Denies GI upset with certain foods Exam Narrative: Exam Narrative: Awake alert oriented appears stated age. Const: General: comfortable and no acute distress HENMT: General nose exam: Normal nares present Eyes: Sclera: sclerae normal Neck: Neck: supple and no JVD Chest: Other: No reproducible chest wall pain to palpation. Left upper chest incision is clean dry and intact Resp: Auscultation: clear to auscultation bilaterally Cardio: Rate: regular rate Rhythm: regular rhythm GI: Inspection: normal to inspection Skin: General skin exam: normal color Other: Generator change incision is clean, dry and intact Neuro: Cranial nerves: Yes Normal hearing present Cognition (Neuro): normal cognition Speech: normal speech Extrem: General: no edema and no pedal edema Psych: Mental Status: mental status grossly normal Objective Data Vital Signs Vital Sig
--- NOTE | 2021-02-08 14:28 | PM.IMPN ---
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 complications Status: Acute (6) Hypokalemia: Code(s): E87.6 - Hypokalemia Status: Acute (7) Gastritis: Code(s): K29.70 - Gastritis, unspecified, without bleeding Status: Acute (8) Abnormal TSH: Code(s): R79.89 - Other specified abnormal findings of blood chemistry Status: Acute (9) Weight loss: Code(s): R63.4 - Abnormal weight loss Status: Acute (10) Generalized weakness: Code(s): R53.1 - Weakness Status: Acute (11) Orthostatic hypotension: Code(s): I95.1 - Orthostatic hypotension Status: Acute (12) Pacemaker: Code(s): Z95.0 - Presence of cardiac pacemaker Status: Acute Additional Plan 80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 Patient was evaluated August 2020 for anemia (Hgb 9-10 range) with workup including an EGD that showed mild gastritis and colonoscopy that showed diverticulosis and polyps with 2 polyps that were removed. Pathology showed a tubulovillous adenoma. Patient was on Xarelto for her atrial fibrillation when she saw the scooter mechanic in December 2020 for pacemaker generator replacement. Patient was noted to be anemic with a hemoglobin of 5.9. Iron studies consistent with iron deficinecy with normal B12/folate. The procedure was postponed. Xarelto was stopped. There is a mention of that the patient had significant unintentional weight loss. Patient mentions to me that she has lost 40 lb over the past 6 months unintentionally. Romie seen by PCP on 01/14 and sent to the ED and pateint was admitted. Hgb 6.1 and she was transfued 2U PRBCs. EGD was repeated 01/16/2021 and again showing gastritis. A few lesions in the stomach were seen which were cauterized since there was concern these may be oozing. Patient was also seen by oncology with plans for PET scan as an outpatient. CEA slightly elevated but normal CA19-9. Patient also was supposed to follow with GI for capsule endoscopy. She was discharged home on 01/18/2021. She has not followed up with these providers yet. Patient was seen again on January 29 for planned procedure to replace her pacemaker generator. She underwent the procedure and toelrated this well; she was discharged home the same day. The following day patient developed nausea, vomiting and diarrhea. She has had only 2 loose stools over the past few days. She states the vomiting does occur also with coughing as dry heaves. Cough is nonproductive. She complains of a dry throat. No fever or chills. Not eating much. She is tolerating liquids mostly. No melena or hematochezia. No hematemesis. No chest pain or palpitations. She has the weight loss as mentioned above. No dysuria or hematuria. She has noticed decreasing urine output but does have urinary frequency however this is chronic. Patient does have epigastric pain still but overall this has improved. She still has a ?band tight feeling across her upper abdomen. She states that she has been going ?downhill over the last year?. She used to walk around her house but because of falls, she started to use a cane then a walker. Even with a walker she was having falls and as such is mostly confined to her recliner. She is able to get up to a bedside commode. Her sister cares for her. She gets dizzy with standing. Her last f
[2021-02-08 18:56] LABS: IFOB Positive Control Positive; Immunochemical Fecal Occult Bl Negative (N)
[2021-02-08] MEDS: MORPHINE SULFATE (*CRX) 2 MG/ML INJ IV PUSH (22:03)
[2021-02-09] VITALS (7 sets, daily range): BP systolic 74–162; BP diastolic 53–81; PULSE 60–95; RESP 16–18; TEMP 36.4–37.1; O2SAT 93–94
[2021-02-09] MEDS: SUCRALFATE SUSP 100 MG/ML 10 ML UDC 1000 MG PO ×4 (06:11→20:58)
[2021-02-09 06:19] LABS: Basophils Percent Auto 0.5 % (0.2-1.2); Eosinophils Absolute Auto 0.2 K/mm3 (0-0.3); Eosinophils Percent Auto 3.8 % (0-4.4); Hematocrit 28.1 % (37.0-47.0); Hemoglobin 8.9 g/dL (12.0-15.0); Immature Granulocyte Absolute 0.05 K/mm3 (0.00-0.031); Immature Granulocyte Percent A 0.8 % (0-0.5); Lymphocytes Percent Auto 19.8 % (18.3-44.2); Mean Corpuscular HGB Conc 31.7 g/dl (32-36); Mean Corpuscular Hemoglobin 29.3 pg (26-34); Mean Corpuscular Volume 92.4 fl (80-100); Mean Platelet Volume 10.8 fl (7.4-10.4); Monocytes Absolute Auto 0.7 K/mm3 (0.1-0.6); Monocytes Percent Auto 11.2 % (2.6-8.5); Neutrophils Absolute Auto 3.9 K/mm3 (1.3-6.7); Neutrophils Percent Auto 63.9 % (45.5-73.1); Platelet Count Result 215 k/mm3 (150-375); Red Blood Count 3.04 M/mm3 (4.2-5.4); Red Cell Distribution Width 22.6 % (11.5-14.5); White Blood Count 6.1 K/mm3 (4.5-10.0)
[2021-02-09 06:33] LABS: Anion Gap 4 mmol/L (8-16); Blood Urea Nitrogen 11 mg/dL (7-17); Calcium 7.8 mg/dL (8.4-10.2); Carbon Dioxide 28 mmol/L (22-30); Chloride 105 mmol/L (98-107); Estimated CRCL calculation 54 ml/min; Estimated Glomerular Filt Rate > 60; Glucose 96 mg/dL (65-105); Magnesium 1.6 mg/dL (1.6-2.3); Potassium 3.4 mmol/L (3.4-5.0); Sodium 137 mmol/L (137-145)
--- NOTE | 2021-02-09 06:56 | PC.NURSE ---
0655: Dr. Douglas Alcaraz notified and aware of wrong time administration for Sucralfate which was given at 0630 rather than scheduled time of 11:30am. Incident report documented.
[2021-02-09] MEDS: FERROUS SULFATE 324 MG TABLET PO (09:02)
[2021-02-09] MEDS: METOCLOPRAMIDE HCL INJ 10 MG/2 ML VIAL 5 MG IV PUSH ×3 (09:02→20:58)
[2021-02-09] MEDS: CHOLECALCIFEROL 1,000 UNITS TABLET 1000 UNITS PO (09:02)
[2021-02-09] MEDS: PANTOPRAZOLE 40 MG TABLET PO (09:02)
[2021-02-09] MEDS: MIDODRINE HCL 2.5 MG TABLET 5 MG PO ×3 (09:03→17:24)
[2021-02-09] MEDS: SODIUM CHLORIDE 0.9% IV 1,000 ML 50 ML IV CONT (09:04)
--- NOTE | 2021-02-09 12:01 | PM.PNCARD ---
Progress Note: A&P Assessment and Plan (1) Abnormal liver CT: Code(s): R93.2 - Abnormal findings on diagnostic imaging of liver and biliary tract Status: Acute Assessment and Plan: Possibly amiodarone related. At this point I think that it is reasonable to stop her amiodarone. There is liver concerns as well as thyroid concerns for amiodarone related side effects. (2) Pacemaker: Code(s): Z95.0 - Presence of cardiac pacemaker Status: Acute Assessment and Plan: Status post generator change. Bandage was removed. The superior aspect of the dressing was already loose. The incision itself was clean dry and intact. The medial and inferior dressing was removed without complication. It was left try to open to open air. (3) Abnormal TSH: Code(s): R79.89 - Other specified abnormal findings of blood chemistry Status: Acute Assessment and Plan: Certainly amiodarone may be a possibility in causing the low TSH and high T4 levels. (4) Symptomatic anemia: Code(s): D64.9 - Anemia, unspecified Status: Acute Assessment and Plan: Off Xarelto for now. If long-term she is not a candidate for anticoagulation, she could be referred to [place] or elsewhere for consideration of a Watchman device. Decision as an outpatient (5) Atrial fibrillation: Code(s): I48.91 - Unspecified atrial fibrillation Status: Acute Assessment and Plan: In sinus rhythm (6) Electrolyte abnormality: Code(s): E87.8 - Other disorders of electrolyte and fluid balance, not elsewhere classified Status: Acute Assessment and Plan: Potassium is okay but magnesium remains low. Will give her 3 g IV magnesium x1 Subjective Date/time seen: 02/09/21 12:01 Interval history: 80-year-old admitted because of nausea vomiting. Date of service 02/09/2021: she feels okay today. No chest pain or shortness of breath. No swelling Review of Systems Review of Systems: All systems reviewed & are unremarkable except as noted in HPI and below Constitutional: Constitutional: Denies fatigue, Denies headache(s), Reports lethargy and Reports weakness Eyes: Eyes: Denies blurry vision ENT: Reports Normal hearing present, Denies headache(s) and Denies neck pain Cardiovascular: Cardiovascular: Denies chest pain, Denies leg edema and Denies dyspnea Respiratory: Respiratory: Denies dyspnea Gastrointestinal: Gastrointestinal: Reports abdominal pain, Reports bloating, Reports nausea and Reports vomiting Genitourinary: Genitourinary: Denies flank pain Musculoskeletal: Musculoskeletal: Denies back pain, Denies neck pain and Denies numbness Integumentary/Breasts: Skin/Breast: Denies dry skin Neurologic: Reports Normal hearing present, Denies headache(s), Denies numbness and Reports weakness Psychiatric: Psychiatric: Denies anxiety Endocrine: Endocrine: Denies fatigue and Denies flushing Hematologic/Lymphatic: Hematologic/Lymphatic: Reports as per HPI, Denies easy bleeding and Denies easy bruising Allergic/Immunologic: Allergic/Immunologic: Denies GI upset with certain foods Exam Narrative: Exam Narrative: Awake alert oriented appears stated age. Const: General: comfortable and no acute distress HENMT: General nose exam: Normal nares present Eyes: Sclera: sclerae normal Neck: Neck: supple and no JVD Chest: Other: No reproducible chest wall pain to palpation. Left upper chest incision is clean dry and intact Resp: Auscultation: clear to auscultation bilaterally Cardio: Rate: regular rate Rhythm: regular rhythm GI: Inspection: normal to inspection Skin: General skin exam: normal color Other: Generator change incision is clean, dry and intact Neuro: Cranial nerves: Yes Normal hearing present Cognition (Neuro): normal cognition Speech: normal speech Extrem: General: no edema and no pedal edema Psych: Mental Status: mental status grossly normal O
[2021-02-09] MEDS: MAGNESIUM SULFATE 3GM/D5W100ML 3 GM/100 ML BAG IVPB (13:36)
--- NOTE | 2021-02-09 14:07 | P.PNIM_ITS ---
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 complications Status: Acute (6) Hypokalemia: Code(s): E87.6 - Hypokalemia Status: Acute (7) Gastritis: Code(s): K29.70 - Gastritis, unspecified, without bleeding Status: Acute (8) Abnormal TSH: Code(s): R79.89 - Other specified abnormal findings of blood chemistry Status: Acute (9) Weight loss: Code(s): R63.4 - Abnormal weight loss Status: Acute (10) Generalized weakness: Code(s): R53.1 - Weakness Status: Acute (11) Orthostatic hypotension: Code(s): I95.1 - Orthostatic hypotension Status: Acute (12) Pacemaker: Code(s): Z95.0 - Presence of cardiac pacemaker Status: Acute Additional Plan 80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 Patient was evaluated August 2020 for anemia (Hgb 9-10 range) with workup including an EGD that showed mild gastritis and colonoscopy that showed diverticulosis and polyps with 2 polyps that were removed. Pathology showed a tubulovillous adenoma. Patient was on Xarelto for her atrial fibrillation when she saw the drawing kiln supervisor in December 2020 for pacemaker generator replacement. Patient was noted to be anemic with a hemoglobin of 5.9. Iron studies consistent with iron deficinecy with normal B12/folate. The procedure was postponed. Xarelto was stopped. There is a mention of that the patient had significant unintentional weight loss. Patient mentions to me that she has lost 40 lb over the past 6 months unintentionally. Romie seen by PCP on 01/14 and sent to the ED and pateint was admitted. Hgb 6.1 and she was transfued 2U PRBCs. EGD was repeated 01/16/2021 and again showing gastritis. A few lesions in the stomach were seen which were cauterized since there was concern these may be oozing. Patient was also seen by oncology with plans for PET scan as an outpatient. CEA slightly elevated but normal CA19-9. Patient also was supposed to follow with GI for capsule endoscopy. She was discharged home on 01/18/2021. She has not followed up with these providers yet. Patient was seen again on January 29 for planned procedure to replace her pacemaker generator. She underwent the procedure and toelrated this well; she was discharged home the same day. The following day patient developed nausea, vomiting and diarrhea. She has had only 2 loose stools over the past few days. She states the vomiting does occur also with coughing as dry heaves. Cough is nonproductive. She complains of a dry throat. No fever or chills. Not eating much. She is tolerating liquids mostly. No melena or hematochezia. No hematemesis. No chest pain or palpitations. She has the weight loss as mentioned above. No dysuria or hematuria. She has noticed decreasing urine output but does have urinary frequency however this is chronic. Patient does have epigastric pain still but overall this has improved. She still has a ?band tight feeling across her upper abdomen. She states that she has been going ?downhill over the last year?. Sh
[2021-02-10] MEDS: ONDANSETRON INJ 4 MG/2 ML VIAL IV PUSH (01:20)
[2021-02-10] MEDS: MORPHINE SULFATE (*CRX) 2 MG/ML INJ IV PUSH (03:14)
[2021-02-10] MEDS: METOCLOPRAMIDE HCL INJ 10 MG/2 ML VIAL 5 MG IV PUSH ×2 (03:15→08:10)
[2021-02-10 05:54] VITALS: BP 137/62; PULSE 66; RESP 18; TEMP 37.1; O2SAT 92
[2021-02-10] MEDS: SUCRALFATE SUSP 100 MG/ML 10 ML UDC 1000 MG PO (06:04)
[2021-02-10] MEDS: FERROUS SULFATE 324 MG TABLET PO (08:10)
[2021-02-10] MEDS: MIDODRINE HCL 2.5 MG TABLET 5 MG PO (08:10)
[2021-02-10] MEDS: CHOLECALCIFEROL 1,000 UNITS TABLET 1000 UNITS PO (08:10)
[2021-02-10] MEDS: PANTOPRAZOLE 40 MG TABLET PO (08:10)
[2021-02-10] MEDS: ACETAMINOPHEN 325 MG TABLET 650 MG PO (09:23)
--- NOTE | 2021-02-10 09:34 | PM.PNCARD ---
Progress Note: A&P Assessment and Plan (1) Abnormal liver CT: Code(s): R93.2 - Abnormal findings on diagnostic imaging of liver and biliary tract Status: Acute Assessment and Plan: Possibly amiodarone related. At this point I think that it is reasonable to stop her amiodarone. There is liver concerns as well as thyroid concerns for amiodarone related side effects. (2) Pacemaker: Code(s): Z95.0 - Presence of cardiac pacemaker Status: Acute Assessment and Plan: Status post generator change. Bandage was removed. The superior aspect of the dressing was already loose. The incision itself was clean dry and intact. The medial and inferior dressing was removed without complication. It was left try to open to open air. (3) Abnormal TSH: Code(s): R79.89 - Other specified abnormal findings of blood chemistry Status: Acute Assessment and Plan: Certainly amiodarone may be a possibility in causing the low TSH and high T4 levels. (4) Symptomatic anemia: Code(s): D64.9 - Anemia, unspecified Status: Acute Assessment and Plan: Off Xarelto for now. If long-term she is not a candidate for anticoagulation, she could be referred to [place] or elsewhere for consideration of a Watchman device. Decision as an outpatient (5) Atrial fibrillation: Code(s): I48.91 - Unspecified atrial fibrillation Status: Acute Assessment and Plan: In sinus rhythm (6) Electrolyte abnormality: Code(s): E87.8 - Other disorders of electrolyte and fluid balance, not elsewhere classified Status: Acute Assessment and Plan: Potassium is low: KCL 20 mg p.o. times 1 Subjective Date/time seen: 02/10/21 09:34 Interval history: 80-year-old admitted because of nausea vomiting. Date of service 02/11/2021: No chest pain, shortness breath. Feels better today Review of Systems Review of Systems: All systems reviewed & are unremarkable except as noted in HPI and below Constitutional: Constitutional: Denies fatigue, Denies headache(s), Reports lethargy and Reports weakness Eyes: Eyes: Denies blurry vision ENT: Reports Normal hearing present, Denies headache(s) and Denies neck pain Cardiovascular: Cardiovascular: Denies chest pain, Denies leg edema and Denies dyspnea Respiratory: Respiratory: Denies dyspnea Gastrointestinal: Gastrointestinal: Reports abdominal pain, Reports bloating, Reports nausea and Reports vomiting Genitourinary: Genitourinary: Denies flank pain Musculoskeletal: Musculoskeletal: Denies back pain, Denies neck pain and Denies numbness Integumentary/Breasts: Skin/Breast: Denies dry skin Neurologic: Reports Normal hearing present, Denies headache(s), Denies numbness and Reports weakness Psychiatric: Psychiatric: Denies anxiety Endocrine: Endocrine: Denies fatigue and Denies flushing Hematologic/Lymphatic: Hematologic/Lymphatic: Reports as per HPI, Denies easy bleeding and Denies easy bruising Allergic/Immunologic: Allergic/Immunologic: Denies GI upset with certain foods Exam Narrative: Exam Narrative: Awake alert oriented appears stated age. Const: General: comfortable and no acute distress HENMT: General nose exam: Normal nares present Eyes: Sclera: sclerae normal Neck: Neck: supple and no JVD Chest: Other: No reproducible chest wall pain to palpation. Left upper chest incision is clean dry and intact Resp: Auscultation: clear to auscultation bilaterally Cardio: Rate: regular rate Rhythm: regular rhythm GI: Inspection: normal to inspection Skin: General skin exam: normal color Other: Generator change incision is clean, dry and intact Neuro: Cranial nerves: Yes Normal hearing present Cognition (Neuro): normal cognition Speech: normal speech Extrem: General: no edema and no pedal edema Psych: Mental Status: mental status grossly normal Objective Data Vital Signs Vital Signs: Vital Signs - 24 hr
[2021-02-10] MEDS: POTASSIUM CHLORIDE 20 MEQ TABLET PO (10:17)
--- NOTE | 2021-02-10 10:36 | PM.DS ---
DS: Admitting Diagnosis Admitting Diagnosis Admitting Diagnosis: nausea, vomting, diarrhea DS: Discharge Diagnosis Discharge Diagnosis (1) Generalized weakness: Code(s): R53.1 - Weakness Status: Acute (2) Atrial fibrillation: Code(s): I48.91 - Unspecified atrial fibrillation Status: Acute (3) Liver function test abnormality: Code(s): R94.5 - Abnormal results of liver function studies Status: Acute (4) Abnormal liver CT: Code(s): R93.2 - Abnormal findings on diagnostic imaging of liver and biliary tract Status: Acute (5) Nausea and vomiting: Code(s): R11.2 - Nausea with vomiting, unspecified Status: Acute (6) Electrolyte abnormality: Code(s): E87.8 - Other disorders of electrolyte and fluid balance, not elsewhere classified Status: Acute (7) Gastritis: Code(s): K29.70 - Gastritis, unspecified, without bleeding Status: Acute (8) Hypokalemia: Code(s): E87.6 - Hypokalemia Status: Acute (9) Pancolitis: Code(s): K51.00 - Ulcerative (chronic) pancolitis without complications Status: Acute (10) CKD (chronic kidney disease), stage III: Qualifiers: Chronic kidney disease stage 3 subtype: stage 3a (GFR 45-59) Qualified Code(s): N18.31 - Chronic kidney disease, stage 3a Code(s): N18.30 - Chronic kidney disease, stage 3 unspecified Status: Acute (11) Pacemaker: Code(s): Z95.0 - Presence of cardiac pacemaker Status: Acute DS: Summary Hospital Course Hospital Course: 80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 Patient was evaluated August 2020 for anemia (Hgb 9-10 range) with workup including an EGD that showed mild gastritis and colonoscopy that showed diverticulosis and polyps with 2 polyps that were removed. Pathology showed a tubulovillous adenoma. Patient was on Xarelto for her atrial fibrillation when she saw the college counselor in December 2020 for pacemaker generator replacement. Patient was noted to be anemic with a hemoglobin of 5.9. Iron studies consistent with iron deficinecy with normal B12/folate. The procedure was postponed. Xarelto was stopped. There is a mention of that the patient had significant unintentional weight loss. Patient mentions to me that she has lost 40 lb over the past 6 months unintentionally. Terietn seen by PCP on 01/14 and sent to the ED and pateint was admitted. Hgb 6.1 and she was transfued 2U PRBCs. EGD was repeated 01/16/2021 and again showing gastritis. A few lesions in the stomach were seen which were cauterized since there was concern these may be oozing. Patient was also seen by oncology with plans for PET scan as an outpatient. CEA slightly elevated but normal CA19-9. Patient also was supposed to follow with GI for capsule endoscopy. She was discharged home on 01/18/2021. She has not followed up with these providers yet since discharge. Patient was seen again on January 29 for planned procedure to replace her pacemaker generator. She underwent the procedure and tolerated this well; she was discharged home the same day. The following day patient developed nausea, vomiting and diarrhea. She has had only 2 loose stools over the past few days. She states the vomiting does occur also with coughing as dry heaves. Cough is nonproductive. She complains of a dry throat. No fever or chills. Not eating much. She is tolerating liquids mostly. No melena or hematochezia. No hematemesis. No chest pain or palpitations. She has the weight loss as mentioned above. No dysuria or hematuria. She has noticed decreasing urine output but does have urinary frequency however this is chronic. Patient does have epigastric pain still but overall this has improved. She still has a ?band tight feeling across her upper abdomen. She states that she has been going ?downhill over the last year?. She used to wa
--- NOTE | 2021-02-10 14:22 | PC.NURSE ---
[facility] Sunil Hull called about Carafate RX insurance does not pay for suspension. Dr Ellis called and changed to PO.
== END 2021-02-10 12:35 | disposition home health service (06) | DRG 392 ==
LOC: ANHED 23:22 → ANH3MEDSUR 02-04 06:46
PROVIDERS: Internal Medicine; Internal Medicine Cardiovascular Disease; Admitting Provider Internal Medicine; Emergency Provider Emergency Medicine; PCP Family Medicine; Visit Provider Internal Medicine
DX: A08.4 Viral intestinal infection, unspecified (principal); K51.00 Ulcerative (chronic) pancolitis without complications; E87.6 Hypokalemia; Z95.0 Presence of cardiac pacemaker; I48.91 Unspecified atrial fibrillation; N18.30 Chronic kidney disease, stage 3 unspecified; D64.9 Anemia, unspecified
CPT/HCPCS: 36415; 51701; 74176; 74177; 80048; 80053; 81001; 82274; 82533; 82728; 83690; 83735; 84100; 84439; 84443; 85025; 85027; 86850; 86900; 86901; 96361; 96365; 96366; 96367; 96368; 96375; 97110; 97161; 97165; 97530; 99285; A9270; C9113; G0378; J2270; J2405; J2543; J2765; J3475; J3480; J7030; J7120; Q9967

== ENCOUNTER 2021-02-14 09:56 | Inpatient (IN) | payer MEDICARE, MEDICAID, SELFPAY ==
[2021-02-14] VITALS (13 sets, daily range): BP systolic 117–146; BP diastolic 44–89; PULSE 71–84; RESP 18–29; TEMP 36.1–36.4; O2SAT 87–100; BMI 28.8
--- NOTE | ~2021-02-14 | XR_ITS ---
EXAMINATION: XR chest 1V portable INDICATION: Shortness of breath TECHNIQUE: Portable AP chest at 0515 hours COMPARISON: 02/14/2021 FINDINGS: Diffuse airspace opacities are present, worst in the right mid and upper lung zones. There is no pleural effusion or pneumothorax. Cardiomegaly is noted. There is no pleural effusion or pneumo thorax. A dual-lead cardiac pacemaker of the left chest wall ends with leads in expected locations. S urgical clips in the right upper quadrant are likely from prior cholecystectomy. Chronic tortuosity o f the trachea is noted. IMPRESSION: 1. Diffuse lung disease, worst in the right mid and upper lung zones, consistent with pneumonia and/o r pulmonary edema. 2. Cardiomegaly. Reviewed, dictated and finalized at location A. IMPRESSION: 1. Diffuse lung disease, worst in the right mid and upper lung zones, consisten t with pneumonia and/or pulmonary edema. 2. Cardiomegaly.
--- NOTE | ~2021-02-14 | XR_ITS ---
XR chest 1V portable 02/24/2021 05:44 Indication: Shortness of breath Procedure: AP portable chest Comparison: Comparison to multiple prior studies sequentially, with oldest reviewed study dated 12/16. Findings: Heart size normal. Persistent diffuse bilateral airspace disease. Pacemaker leads are stabl e. No acute osseous abnormality. No pneumothorax. No acute osseous abnormality. Impression: 1: Persistent diffuse bilateral airspace disease which may represent edema or pneumonia. No significa nt change compared with 02/20/2021. Reviewed, dictated and finalized at location A. Impression: 1: Persistent diffuse bilateral airspace disease which may represent edema or p neumonia. No significant change compared with 02/20/2021.
--- NOTE | ~2021-02-14 | XR_ITS ---
XR chest 2V 02/14/2021 10:41 Indication: Shortness of breath Procedure: AP and lateral views of the chest Comparison: 01/14/2021 Findings: Right upper lobe airspace disease. Size normal. Pacemaker leads are in expected position, u nchanged. Small pleural effusions. No pneumothorax. No acute osseous abnormality. Impression: 1: Right upper lobe airspace disease, suspicious for pneumonia. 2: Small pleural effusion with basilar atelectasis. Reviewed, dictated and finalized at location B. Impression: 1: Right upper lobe airspace disease, suspicious for pneumonia. 2: Small pleural effusion with basilar atelectasis.
--- NOTE | ~2021-02-14 | CT_ITS ---
EXAMINATION: CTA chest PE protocol EXAM DATE: 02/14/2021 14:05 INDICATION: DVT. Hypoxia. TECHNIQUE: Spiral CTA of the chest (pulmonary arteries) was performed with 100 cc Omnipaque 350 intr avenous contrast injection. Images were acquired during the pulmonary arterial phase. Coronal maxi mum intensity projection 3D-reconstructions were created by the technologist on dedicated workstation . Axial, coronal and sagittal reformatted images were reviewed. The dose-length product (DLP) for t his examination was 425.54 mGy-cm. The exposure was tailored according to patient size (auto mA exp osure control), and iterative reconstruction (ASIR) was used as additional dose reduction technique. There is no prior study for comparison. FINDINGS: Moderate sized right-sided pulmonary embolism straddling the right upper and right middle l obe pulmonary arteries. Smaller additional pulmonary emboli bilaterally. Dilated pulmonary arteries c onsistent with pulmonary arterial hypertension. No CT evidence of right heart strain. No thoracic aor tic dissection. Moderate amount of bilateral groundglass airspace disease, differential diagnosis including edema, CO VID pneumonia, other infectious process. Small left pleural effusion with adjacent atelectasis. Small amount of right basilar atelectasis. Tracheobronchial tree is patent. There is no mediastinal, hil ar or axillary lymphadenopathy. There is no pneumothorax. There is cardiomegaly. Dual lead pacema ker/AICD device. Hyperdense liver, could be amiodarone treatment, or hemochromatosis. Subacute to c hronic appearing burst fracture of T6 with moderate loss of the vertebral body heights. About 2 mm re tropulsion at the inferior endplate. There is small sliding gastroesophageal hiatal hernia. IMPRESSION: 1. Bilateral pulmonary emboli, moderate clot burden. 2. Moderate amount of bilateral groundglass opacities likely acute edema or infection. COVID pneumon ia also possible. 3. Cardiomegaly. Pulmonary arterial hypertension. 4. Small left pleural effusion. 5. Bibasilar subsegmental atelectasis. 6. Hyperdense liver. Could be amiodarone treatment or hemachromatosis. 7. Subacute to chronic T6 burst fracture. I called results to emergency room, discussed pulmonary emboli and airspace disease with Samina SEAMAN 02/14/2021 14:19 CDT . Reviewed, dictated and finalized at location A. IMPRESSION: 1. Bilateral pulmonary emboli, moderate clot burden. 2. Moderate amount of bilateral groundglass opacities likely acute edema or in fection. COVID pneumonia also possible. 3. Cardiomegaly. Pulmonary arterial hypertension. 4. Small left pleural effusion. 5. Bibasilar subsegmental atelectasis. 6. Hyperdense liver. Could be amiodarone treatment or hemachromatosis. 7. Subacute to chronic T6 burst fracture. I called results to emergency room, discussed pulmonary emboli and airspace dis ease with Samina SEAMAN 02/14/2021 14:19 CDT .
--- NOTE | ~2021-02-14 | US_ITS ---
EXAMINATION: US venous doppler [facility] EXAM DATE: 02/14/2021 13:27 INDICATION: TECHNIQUE: Multiple grayscale, color flow and Doppler images of the lower extremity deep venous syste ms bilaterally were obtained and reviewed. Comparison is made to prior examination from 07/10/2008. FINDINGS: RIGHT SIDE Common femoral: -------- Normal. Profunda femoral: ------- Normal. Femoral: Thrombosed. Popliteal: Thrombosed. Posterior tibial: ---------Paired, 1 thrombosed. Peroneal: Not visualized. Gastrocnemius: Thrombosed. Soleus: Not visualized. Greater saphenous: ----- Normal. Lesser saphenous: ------ Not visualized. LEFT SIDE Common femoral: -------- Normal. Profunda femoral: ------- Normal. Femoral: Normal. Popliteal: Normal. Posterior tibial: --------- Normal. Peroneal: Not visualized. Gastrocnemius: Not visualized. Soleus: Not visualized. Greater saphenous: ----- Normal. Lesser saphenous: ------ Not visualized. IMPRESSION: 1. Positive for right-sided DVT as above. 2. No left DVT. Reviewed, dictated and finalized at location A.
--- NOTE | ~2021-02-14 | XR_ITS ---
XR abdomen/kub 1V 02/14/2021 11:20 Indication: Abdominal pain Procedure: KUB Comparison: CT dated 02/07/2011 Findings: Bowel gas pattern is nonobstructive. There is bibasilar atelectasis with small pleural effu sions. There is mild chronic compression deformity of L1 with dextroscoliosis. There is mild osteoart hritis of the hips. Impression: 1: Nonobstructive bowel gas pattern. 2: Bibasilar infiltrates, most likely atelectasis/scarring. 3: Small pleural effusions. Reviewed, dictated and finalized at location B. Impression: 1: Nonobstructive bowel gas pattern. 2: Bibasilar infiltrates, most likely atelectasis/scarring. 3: Small pleural effusions.
--- NOTE | 2021-02-14 10:19 | ECG_ITS ---
Measurements Intervals [place] Rate: 80 P: 26 VT: 173 QRS: -9 QRSD: 122 T: 14 QT: 346 QTc: 399 Interpretive Statements SINUS RHYTHM INTRAVENTRICULAR CONDUCTION DELAY LEFT VENTRICULAR HYPERTROPHY WITH ST-T CHANGE ANTERIOR INFARCT, AGE INDETERMINATE CONSIDER INFERIOR INFARCT, AGE INDETERMINATE BASELINE ARTIFACT- I, II, III, AVR, AVL, AVF, V2-V6 ABNORMAL ECG Electronically Signed On 02-14-2021 10:25:59 CDT by Alli Coelho D.O.
--- NOTE | 2021-02-14 10:21 | PC.NURSE ---
pt caregiver at bedside at this time.
[2021-02-14 10:28] LABS: Basophils Percent Auto 0.2 % (0.2-1.2); Eosinophils Percent Auto 0.2 % (0-4.4); Hematocrit 35.9 % (37.0-47.0); Hemoglobin 11.3 g/dL (12.0-15.0); Immature Granulocyte Absolute 0.14 K/mm3 (0.00-0.031); Immature Granulocyte Percent A 1.5 % (0-0.5); Lymphocytes Absolute Auto 0.69 K/mm3 (0.9-3.2); Lymphocytes Percent Auto 7.2 % (18.3-44.2); Mean Corpuscular HGB Conc 31.5 g/dl (32-36); Mean Corpuscular Hemoglobin 30.1 pg (26-34); Mean Corpuscular Volume 95.7 fl (80-100); Mean Platelet Volume 10.7 fl (7.4-10.4); Monocytes Absolute Auto 0.6 K/mm3 (0.1-0.6); Monocytes Percent Auto 6.1 % (2.6-8.5); Neutrophils Absolute Auto 8.2 K/mm3 (1.3-6.7); Neutrophils Percent Auto 84.8 % (45.5-73.1); Platelet Count Result 304 k/mm3 (150-375); Red Blood Count 3.75 M/mm3 (4.2-5.4); Red Cell Distribution Width 24.1 % (11.5-14.5); White Blood Count 9.6 K/mm3 (4.5-10.0)
[2021-02-14 10:48] LABS: Anion Gap 11 mmol/L (8-16); Blood Urea Nitrogen 18 mg/dL (7-17); Carbon Dioxide 24 mmol/L (22-30); Chloride 103 mmol/L (98-107); Estimated CRCL calculation 48 ml/min; Estimated Glomerular Filt Rate > 60; Glucose 125 mg/dL (65-105); Potassium 3.8 mmol/L (3.4-5.0); Sodium 138 mmol/L (137-145)
[2021-02-14] MEDS: ONDANSETRON INJ 4 MG/2 ML VIAL IV PUSH ×2 (10:55→17:31)
[2021-02-14 11:19] LABS: Lactic Acid Reflex 3.1 mmol/L (0.7-2.1)
[2021-02-14 11:27] LABS: Alveolar/Arterial O2 Gradient 104.7 mmHg; Base Excess ABG -2.4 mEq/l (+/-2.0); Carboxyhemoglobin 0.3 % THb (0-2.0); Fractional Inspired Oxygen 28 %; HCO3 ABG 20.8 mEq/l (22.0-26.0); Methemoglobin ABG 0.2 %THb (0-1.5); Oxygen Content ABG 13.5 %vol (16.0-22.0); Oxygen Saturation ABG 92.1 % (95.0-100.0); Oxyhemoglobin 89.7 % THb (90.0-100.0); PCO2 ABG 30.5 mmHg (35.0-45.0); PO2 FiO2 Ratio Arterial Blood 2.11 %; Reduced Hemoglobin 9.8 %THb (0-5.0); Total Hemoglobin 10.7 g/dL (12.0-18.0); pH ABG 7.451 (7.350-7.450)
[2021-02-14 11:31] LABS: Site Drawn RIGHT BRACHIAL
[2021-02-14 11:32] LABS: Device NASAL CANNULA
[2021-02-14 11:51] LABS: Alanine Aminotransferase 64 U/L (4-35); Albumin Level 3.4 g/dL (3.5-5.1); Alkaline Phosphatase 165 U/L (38-126); Aspartate Amino Transferase 106 U/L (14-36); Bilirubin,Total 0.9 mg/dL (0.2-1.3); Lipase 70 U/L (23-300)
[2021-02-14 12:04] LABS: NT Pro B Type Natriuretic Pept 2580 pg/mL (5-100); Troponin I 0.062 ng/mL (0.000-0.034)
[2021-02-14 12:08] LABS: Add Urine Microscopic? YES; Appearance Urine Cloudy (Clear); Bilirubin Urine Negative (Negative); Blood Urine Negative (Negative); Calcium Oxalate Crystals Urine Present /hpf; Color Urine Amber (Yellow); Glucose Urine UA Negative (Negative); Hyaline Casts Urine 30-49 /lpf; Ketones Urine Trace mg/dL (Negative); Leukocyte Esterase Ur Negative LEU/UL (Negative); Mucus Urine Heavy /lpf; Nitrate Urine Negative (Negative); Protein Urine 1+ mg/dL (Negative); RBC Urine 0-2 /hpf (0-2); Specific Grav Ur 1.027 (1.001-1.035); Squamous Epithelial Cell Urine Rare /hpf (Few); WBC Urine 0-3 /hpf
--- NOTE | 2021-02-14 12:27 | ED.SOB ---
HPI - SOB/Dyspnea General Chief Complaint: Shortness of Breath/Dyspnea Stated Complaint: low O2, abd pain, nausea Time Seen by Provider: 02/14/21 10:26 Source: patient, RN notes reviewed and old records reviewed Mode of arrival: ambulatory Limitations: dementia History of Present Illness HPI Narrative: This is an 80 year old female with history of anemia, chronic abdominal pain who presents for evaluation of low oxygen saturation. Patient states she has been having shortness of breath for a couple of weeks. Her granddaughter states she noticed she appeared to be having trouble breathing yesterday. Today patient was being evaluated by oncologist and she was sent to ER for low oxygen saturation. Patient does not normal require oxygen. She denies chest pain, cough, nausea or vomiting. She does complain of diffuse abdominal pain. This pain has been present for several weeks and she has had multiple CT scans. Her granddaughter notices that she has worsening swelling of her right leg, although both legs are swollen. Related Data Home Medications Medication Instructions Recorded Confirmed acetaminophen 500 mg capsule 1,000 mg PO Q12H PRN 04/06/20 02/14/21 midodrine 2.5 mg tablet 10 mg PO TID tablet 09/10/20 02/14/21 Allergies Allergy/AdvReac Type Severity Reaction Status Date / Time duloxetine AdvReac Mild Nausea Verified 02/04/21 00:24 aspirin AdvReac Unknown Nausea Verified 02/04/21 00:24 Review of Systems Review of Systems: All systems reviewed & are unremarkable except as noted in HPI and below Constitutional: Constitutional: Denies chills and Denies fever(s) Cardiovascular: Cardiovascular: Denies chest pain Respiratory: Respiratory: Reports dyspnea Gastrointestinal: Gastrointestinal: Reports abdominal pain, Reports nausea and Denies vomiting PMFSH Past Medical History Medical History Arthritis Atrial fibrillation Brain tumor CKD (chronic kidney disease), stage III Constipation Distal radius fracture, right Dizziness Gastritis Insomnia Macrocytic anemia Orthostatic hypotension Osteoporosis Pacemaker Original pacemaker implant [place] [address] Mckenzie at [facility]'s device. 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 She lifelong nonsmoker. Denies alcohol or drug use. She has 2 children 1 of whom has of cancer. She is . She nominated her son to be the individual who would make medical decisions for her if she is unable. She is a full code. Smoking status: Never smoker Second hand tobacco smoke exposure: No Alcohol intake: unknown Substance use: unknown Substance use type: does not use Gender identity (if verbalized by the patient): Female Spiritual care concerns: No Exam Const: General: no acute distress and alert Orientation/consciousness: patient oriented x3 HENMT: Head: normocephalic and atraumatic Face and sinus: face symmetric Mouth: Yes Normal oral and palatal mucosa present, Yes lip normal, Yes oropharynx normal and Yes moist mucous membranes Ey
[2021-02-14 12:28] LABS: Prothrombin Time 13.7 Seconds (11.1-14.7)
[2021-02-14 12:31] LABS: Partial Thromboplastin Time 31.4 SECONDS (22.3-36.8)
[2021-02-14] MEDS: SODIUM CHLORIDE 0.9% IV 500 ML 999 ML IV CONT (13:40)
[2021-02-14 13:57] LABS: D Dimer 6.73 ug/mL (<0.48)
[2021-02-14 14:06] LABS: Reflex Lactic Acid Yes or No Add Lactic
--- NOTE | 2021-02-14 14:24 | PCCCNOTE ---
Care Coordination received call from pt's son Jose, who is also her POA about his concern that his mother has not been diagnosed to prevent her readmissions. Explained that the ED treats the person for what complaint they have and will not do other tests that can be done as a OP. This Metal [employer]ing Trades Worker did talk with Dr. Chairez about his concern.
[2021-02-14] MEDS: HEPARIN SODIUM 5,000 UNITS/ML VIAL 5000 UNITS IV PUSH (14:53)
[2021-02-14 15:11] LABS: Lactic Acid 0.9 mmol/L (0.7-2.1)
[2021-02-14] MEDS: HEPARIN SOD/D5W 100 UNITS/ML 25,000 UNITS/250 ML BAG 11 UNITS IV CONT (15:56)
--- NOTE | 2021-02-14 17:23 | ADMGEN ---
This patient, Maryanne Chapman, was admitted to IMU Room 213-01. Patient/family oriented to hospital policies and general routines including ID bracelet, bed and alarms, visiting hours, pain management, procedures, bathroom and other care routines, personal items, smoking policy, room service/diet, and visiting hours. Information on how to activate the Rapid Response Team has been discussed. Patient/Family are encouraged to report perceived risks to care and to ask questions if they do not understand what they are told or what they should do.
--- NOTE | 2021-02-14 20:53 | PM.IMHP ---
H&P: HPI History of Present Illness Date/Time: 02/14/21 20:53 Chief Complaint: Shortness of breath Narrative: 80-year-old female with past medical history of atrial fibrillation, chronic kidney disease, anemia and GI blood loss who presented to the ER with shortness of breath. The patient had recently been found to have profound anemia and significant weight loss and had her Xarelto discontinued in December. She had an EGD at that time which demonstrated hiatal hernia and gastritis. She had had a colonoscopy and August 2020 with tubal villous adenoma. She underwent exchange of her generator battery for pacemaker on 01/29/2021. She returned the hospital on 02/04/2021 due to nausea vomiting and was noted to have colitis on CT. She was placed on Flagyl and switched to p.o. vancomycin. She was still having abdominal symptoms and had repeat CT which demonstrated resolution of her colitis. Her antibiotics were discontinued and she was ready for discharge 02/10/2021. She was essentially bedbound but refused rehab placement and was discharged home. She returned to the ER today for evaluation of low oxygen saturations. The patient's granddaughter reported the patient had been short of breath for couple of weeks but the patient had not been hypoxic during her last hospital stay. The granddaughter noted that the patient seemed to be more short of breath yesterday. She was taken to her oncologist's office for her follow-up appointment regarding her anemia and significant weight loss. While at the oncologist's office she was noted to be hypoxic and her oxygen saturations in the ER was low as 87%. The patient does have chronic swelling of bilateral lower extremities but has had worsening swelling of her right lower extremity since she was discharged from the hospital. The patient does complain of diffuse abdominal pain but has had recent colonoscopies and EGDs as discussed above. She has also been referred for an outpatient capsule endoscopy in December but has not yet been able to follow-up for that study. She states that her abdominal pain is severe and is in the epigastric region. She reports that she does not even have an appetite to eat. She had a couple of episodes of emesis a couple of days ago. She does not think her pain is any worse with eating. She was discharged on Protonix and Carafate. She states that no one is doing anything for her abdominal pain. She reports she had a loose stool when she arrived to the IMU. She denies any other diarrhea over recent days. She has had a mild cough. She had her 2nd COVID vaccine in December. She reports that her right leg is significantly more swollen in that is so heavy that she can barely lift it. She has been essentially bed-bound since she returned home. Each time she comes in the hospital her condition gets worse at discharge. She has been having chronic urinary incontinence. She denies any dysuria hematuria. She reports that she is so miserable that she almost would rather . However when I discuss code status the patient states that she wants cardiac resuscitation. She then states that she would not want to be on a ventilator. When I tried to discuss the fact that she would still without the ventilator the patient then defers her care decisions to her son. I tried to contact the patient's son at 10:20 p.m. but there was no answer. Review of Systems Review of Systems: Narrative: 12 systems were reviewed with pertinent positives and negatives per HPI. Except as documented in the HPI, all other systems were reviewed and are negative. [facility] Past Medical History Medical History (Updated 02/14/21 @ 23:09 by Bisi Toney, ) Arthritis Atrial fibrillation Brain tumor CKD (chronic kidney disease), stage III Constipation Distal radius fracture, right Dizziness Gastritis Insomnia Macrocytic anemia Orthostatic hypotension Osteoporosis Pacemaker [place] [address] Mckenzie
[2021-02-14 22:28] LABS: Troponin I 0.047 ng/mL (0.000-0.034)
[2021-02-14 22:30] LABS: Partial Thromboplastin Time 180.6 SECONDS (22.3-36.8)
[2021-02-14] MEDS: SUCRALFATE SUSP 100 MG/ML 10 ML UDC 1000 MG PO (22:48)
[2021-02-15] VITALS (13 sets, daily range): BP systolic 115–168; BP diastolic 54–79; PULSE 60–74; RESP 18–24; TEMP 36.2–36.5; O2SAT 91–96; BMI 28.8
--- NOTE | 2021-02-15 | ECHO_ITS ---
Patient Info Name: Maryanne Chapman Age: 80 years : 1940 Gender: Female Ht: 64 in Wt: 167 lbs BSA: 1.87 m2 HR: 63 bpm BP: 115 / 54 mmHg Heart Rhythm: Sinus Rhythm Technical Quality: Good Exam Date: 02/15/2021 9:13 AM Exam Location: [facility] Pulmonary Patient Status: Inpatient Admit Date: 02/14/2021 Staff Ordering Physician: Bisi Toney DO Stave Machine Tender: Hiram Juarez RDCS, RT Attending Provider: Juan Alberto Lantigua MD Referring Physician: Dawna QUINTEROS; Exam Type: CA echo doppler color flow Study Info Indications I26.99 - Other pulmonary embolism without acute cor pulmonale Complete two-dimensional, color flow and Doppler transthoracic echocardiogram is performed. Strain analysis performed. Summary 1. Complete two-dimensional, color flow and Doppler transthoracic echocardiogram is performed. 2. Left ventricular systolic function is normal, estimated at 60-65%. 3. There is mildly increased left ventricular wall thickness. 4. Left ventricular septal wall motion is abnormal with septal motion related to pacing. 5. The left ventricular diastolic function is grade I diastolic dysfunction. 6. Left atrial chamber dimension is mildly enlarged. 7. There is mild mitral valve regurgitation. 8. The mitral valve annulus is severely calcified. 9. There is mild tricuspid valve regurgitation. 10. Moderate pulmonary hypertension, estimated pulmonary arterial systolic pressure is 47 mmHg. Left Ventricle Left ventricular chamber dimension is normal. Left ventricular systolic function is normal, estimated at 60-65%. There is mildly increased left ventricular wall thickness. Left ventricular septal wall motion is abnormal with septal motion related to pacing. The left ventricular diastolic function is grade I diastolic dysfunction. Global longitudinal strain is mildly elevated at -16 %. Right Ventricle Right ventricular chamber dimension is normal. Right ventricular systolic function is normal. Linear artifact in right ventricle suggestive of catheter(s), pacemaker lead(s), or ICD lead(s). Left Atria Left atrial chamber dimension is mildly enlarged. Right Atria Right atrial chamber dimension is normal. Linear artifact in the right atrium suggestive of catheter(s), pacemaker lead(s), or ICD lead(s). Aortic Valve The aortic valve is trileaflet. There is no aortic valve stenosis. There is mild aortic valve regurgitation. Pulmonic Valve The pulmonic valve is not well visualized. There is mild pulmonic regurgitation. Mitral Valve The mitral valve has thickened leaflets. There is mild mitral valve regurgitation. The mitral valve annulus is severely calcified. Tricuspid Valve The tricuspid valve leaflets are normal. There is mild tricuspid valve regurgitation. Moderate pulmonary hypertension, estimated pulmonary arterial systolic pressure is 47 mmHg. Pericardium/Pleural The pericardium appears normal. There is trivial pericardial effusion. Aorta The aortic root size at the sinus of Valsalva is normal. There is mild aortic atherosclerosis. Left Ventricular Outflow Tract Name Value Normal LVOT 2D LVOT Diameter 2.0 cm LVOT Doppler
[2021-02-15] MEDS: ONDANSETRON INJ 4 MG/2 ML VIAL IV PUSH ×2 (00:36→23:25)
[2021-02-15] MEDS: SUCRALFATE SUSP 100 MG/ML 10 ML UDC 1000 MG PO ×4 (06:07→20:05)
[2021-02-15 06:19] LABS: Basophils Percent Auto 0.3 % (0.2-1.2); Eosinophils Absolute Auto 0.1 K/mm3 (0-0.3); Hematocrit 28.7 % (37.0-47.0); Hemoglobin 8.6 g/dL (12.0-15.0); Lymphocytes Absolute Auto 0.39 K/mm3 (0.9-3.2); Lymphocytes Percent Auto 3.9 % (18.3-44.2); Mean Corpuscular Hemoglobin 29.3 pg (26-34); Mean Corpuscular Volume 97.6 fl (80-100); Monocytes Absolute Auto 0.3 K/mm3 (0.1-0.6); Monocytes Percent Auto 2.5 % (2.6-8.5); Neutrophils Absolute Auto 9.2 K/mm3 (1.3-6.7); Neutrophils Percent Auto 91.3 % (45.5-73.1); Red Blood Count 2.94 M/mm3 (4.2-5.4); Red Cell Distribution Width 23.9 % (11.5-14.5)
[2021-02-15] MEDS: ACETAMINOPHEN 500 MG TABLET 1000 MG PO ×3 (06:31→23:23)
[2021-02-15 06:36] LABS: Alanine Aminotransferase 47 U/L (4-35); Albumin Level 2.5 g/dL (3.5-5.1); Alkaline Phosphatase 115 U/L (38-126); Anion Gap 4 mmol/L (8-16); Aspartate Amino Transferase 88 U/L (14-36); Bilirubin,Total 0.6 mg/dL (0.2-1.3); Blood Urea Nitrogen 17 mg/dL (7-17); Calcium 7.9 mg/dL (8.4-10.2); Carbon Dioxide 26 mmol/L (22-30); Chloride 106 mmol/L (98-107); Estimated CRCL calculation 62 ml/min; Estimated Glomerular Filt Rate > 60; Glucose 99 mg/dL (65-105); Potassium 3.2 mmol/L (3.4-5.0); Sodium 136 mmol/L (137-145)
[2021-02-15 07:18] LABS: Partial Thromboplastin Time 121.4 SECONDS (22.3-36.8)
[2021-02-15] MEDS: MIDODRINE HCL 10 MG TABLET PO ×3 (08:27→16:14)
[2021-02-15] MEDS: FERROUS SULFATE 324 MG TABLET PO (08:28)
[2021-02-15] MEDS: PANTOPRAZOLE 40 MG TABLET PO (08:28)
[2021-02-15] MEDS: CHOLECALCIFEROL 1,000 UNITS TABLET 1000 UNITS PO (08:28)
[2021-02-15 13:37] LABS: Hemoglobin 8.7 g/dL (12.0-15.0)
[2021-02-15 13:44] LABS: Partial Thromboplastin Time 72.2 SECONDS (22.3-36.8)
--- NOTE | 2021-02-15 15:39 | PM.IMPN ---
Progress Note: A&P Assessment and Plan (1) Pulmonary embolism: Qualifiers: Pulmonary embolism type: multiple subsegmental (without acute cor pulmonale) Qualified Code(s): I26.94 - Multiple subsegmental pulmonary emboli without acute cor pulmonale Code(s): I26.99 - Other pulmonary embolism without acute cor pulmonale Status: Acute Assessment and Plan: PATIENT IS CURRENTLY ON HEPARIN DRIP WILL CONTINUE TO MONITOR H&H 2D ECHO HAS BEEN REVIEWED (2) Acute deep vein thrombosis (DVT) of right lower extremity: Qualifiers: Affected thrombotic vein of extremity: femoral Qualified Code(s): I82.411 - Acute embolism and thrombosis of right femoral vein Code(s): I82.401 - Acute embolism and thrombosis of unspecified deep veins of right lower extremity Status: Acute Assessment and Plan: CURRENTLY ON HEPARIN DRIP (3) Acute respiratory failure with hypoxia: Code(s): J96.01 - Acute respiratory failure with hypoxia Status: Acute Assessment and Plan: LIKELY SECONDARY TO PULMONARY EMBOLISM CONTINUE TO MONITOR CONTINUE OXYGEN TRY AND KEEP OXYGEN SATURATION AT 94% (4) Pneumonia: Qualifiers: Laterality: bilateral Lung location: unspecified part of lung Pneumonia type: due to unspecified organism Qualified Code(s): J18.9 - Pneumonia, unspecified organism Code(s): J18.9 - Pneumonia, unspecified organism Status: Acute Assessment and Plan: PATIENT IS CURRENTLY ON ZOSYN AWAIT CULTURES (5) Elevated troponin: Code(s): R77.8 - Other specified abnormalities of plasma proteins Status: Acute Assessment and Plan: LIKELY TO BE A TROPONIN LEAK SECONDARY TO PULMONARY EMBOLISM DOUBTFUL OF ACUTE CORONARY SYNDROME Additional Plan The patient has pulmonary embolism secondary to right lower extremity DVT. The patient's DVTs likely the result of her immobility and the recent discontinuation of her chronic anticoagulation due to GI blood losses. Patient is currently on a heparin drip. If the patient's hemoglobin drops further on heparin drip patient may need consider IVC filter placement. Patient does have new acute hypoxic respiratory failure likely secondary to a pulmonary embolism. CT does demonstrate evidence of pulmonary hypertension. I could not find documentation of patient having prior pulmonary hypertension so she may have some right heart strain. Echocardiogram has been ordered for further evaluation. CT of the chest demonstrates possible pneumonia however I suspect the knees are more consistent with pulmonary edema/CHF due to right heart strain. The patient was placed on empiric antibiotic therapy by ER staff. If the patient's white count remains stable I would consider discontinuing Zosyn in next 24-48 hours. Radiology stated that COVID infection was a consideration but this is less likely given the pain COVID vaccine in December and the patient has been afebrile. The patient's troponin was also elevated but is trending downward. Her troponin elevation is likely due to strain from her pulmonary embolism. Subjective Date/time seen: 02/15/21 15:39 I FEEL OKAY Review of Systems Review of Systems: All systems reviewed & are unremarkable except as noted in HPI and below Constitutional: Constitutional: Denies chills and Denies fever(s) Cardiovascular: Cardiovascular: Denies chest pain and Reports dyspnea Respiratory: Respiratory: Reports dyspnea Gastrointestinal: Gastrointestinal: Reports abdominal pain, Reports nausea and Denies vomiting Exam Narrative: Exam Narrative: PHYSICAL EXAM: WEIGHT 76.2 kg BMI 28.8 General: Elderly, well-developed well-nourished HEENT: That head is normocephalic atraumatic, pupils are equal and reactive, no scleral icterus, positive conjunctival pallor, nasal cannula in place, petechiae to the underside of the tongue, mucous membranes are moist, edentulous in upper and lower
--- NOTE | 2021-02-15 17:29 | PC.NURSE ---
This patient, Maryanne Chapman, was transferred to [[id number] ] on 02/15/21 at 9137. Personal belongings sent with patient. Report given to [MAYO Dougherty @ [phone] ]. Appropriate documentation sent with patient.
[2021-02-15] MEDS: HEPARIN SOD/D5W 100 UNITS/ML 25,000 UNITS/250 ML BAG 8 UNITS IV CONT (17:35)
--- NOTE | 2021-02-15 17:50 | PC.NURSE ---
This patient, Maryanne Chapman, was received from IMU on 02/15/21 at 1745. Patient/family oriented to unit policies and routines
[2021-02-15 19:59] LABS: Partial Thromboplastin Time 72.3 SECONDS (22.3-36.8)
[2021-02-16] VITALS (12 sets, daily range): BP systolic 118–159; BP diastolic 62–77; PULSE 60–73; RESP 20–22; TEMP 36.2–36.5; O2SAT 92–97
[2021-02-16 05:58] LABS: Partial Thromboplastin Time 49.3 SECONDS (22.3-36.8)
[2021-02-16] MEDS: HEPARIN SODIUM 5,000 UNITS/ML VIAL 5000 UNITS IV PUSH (06:11)
[2021-02-16] MEDS: SUCRALFATE SUSP 100 MG/ML 10 ML UDC 1000 MG PO ×4 (06:12→20:01)
[2021-02-16] MEDS: MIDODRINE HCL 10 MG TABLET PO ×3 (08:58→16:14)
[2021-02-16] MEDS: PANTOPRAZOLE 40 MG TABLET PO (08:58)
[2021-02-16] MEDS: FERROUS SULFATE 324 MG TABLET PO (08:59)
[2021-02-16] MEDS: CHOLECALCIFEROL 1,000 UNITS TABLET 1000 UNITS PO (09:40)
[2021-02-16] MEDS: MORPHINE SULFATE (*CRX) 2 MG/ML INJ 1 MG IV PUSH ×3 (09:52→23:42)
[2021-02-16 13:30] LABS: Partial Thromboplastin Time > 200.0 SECONDS (22.3-36.8)
[2021-02-16] MEDS: ONDANSETRON INJ 4 MG/2 ML VIAL IV PUSH (13:50)
--- NOTE | 2021-02-16 14:06 | PM.IMPN ---
Progress Note: A&P Assessment and Plan (1) Pulmonary embolism: Qualifiers: Pulmonary embolism type: multiple subsegmental (without acute cor pulmonale) Qualified Code(s): I26.94 - Multiple subsegmental pulmonary emboli without acute cor pulmonale Code(s): I26.99 - Other pulmonary embolism without acute cor pulmonale Status: Acute Assessment and Plan: PATIENT IS CURRENTLY ON HEPARIN DRIP WILL CONTINUE TO MONITOR H&H 2D ECHO HAS BEEN REVIEWED WILL START COUMADIN WILL DISCONTINUE NOVEL ANTICOAGULANT (2) Acute deep vein thrombosis (DVT) of right lower extremity: Qualifiers: Affected thrombotic vein of extremity: femoral Qualified Code(s): I82.411 - Acute embolism and thrombosis of right femoral vein Code(s): I82.401 - Acute embolism and thrombosis of unspecified deep veins of right lower extremity Status: Acute Assessment and Plan: CURRENTLY ON HEPARIN DRIP (3) Acute respiratory failure with hypoxia: Code(s): J96.01 - Acute respiratory failure with hypoxia Status: Acute Assessment and Plan: LIKELY SECONDARY TO PULMONARY EMBOLISM CONTINUE TO MONITOR CONTINUE OXYGEN TRY AND KEEP OXYGEN SATURATION AT 94% STABLE (4) Pneumonia: Qualifiers: Laterality: bilateral Lung location: unspecified part of lung Pneumonia type: due to unspecified organism Qualified Code(s): J18.9 - Pneumonia, unspecified organism Code(s): J18.9 - Pneumonia, unspecified organism Status: Acute Assessment and Plan: PATIENT IS CURRENTLY ON ZOSYN AWAIT CULTURES (5) Elevated troponin: Code(s): R77.8 - Other specified abnormalities of plasma proteins Status: Acute Assessment and Plan: LIKELY TO BE A TROPONIN LEAK SECONDARY TO PULMONARY EMBOLISM DOUBTFUL OF ACUTE CORONARY SYNDROME Additional Plan The patient has pulmonary embolism secondary to right lower extremity DVT. The patient's DVTs likely the result of her immobility and the recent discontinuation of her chronic anticoagulation due to GI blood losses. Patient is currently on a heparin drip. If the patient's hemoglobin drops further on heparin drip patient may need consider IVC filter placement. Patient does have new acute hypoxic respiratory failure likely secondary to a pulmonary embolism. CT does demonstrate evidence of pulmonary hypertension. I could not find documentation of patient having prior pulmonary hypertension so she may have some right heart strain. Echocardiogram has been ordered for further evaluation. CT of the chest demonstrates possible pneumonia however I suspect the knees are more consistent with pulmonary edema/CHF due to right heart strain. The patient was placed on empiric antibiotic therapy by ER staff. If the patient's white count remains stable I would consider discontinuing Zosyn in next 24-48 hours. Radiology stated that COVID infection was a consideration but this is less likely given the pain COVID vaccine in December and the patient has been afebrile. The patient's troponin was also elevated but is trending downward. Her troponin elevation is likely due to strain from her pulmonary embolism. Subjective Date/time seen: 02/16/21 14:06 I AM IN PAIN Review of Systems Review of Systems: Narrative: PATIENT IS COMPLAINING OF PAIN IN THE EPIGASTRIC RETROSTERNAL AREA Constitutional: Constitutional: Denies chills and Denies fever(s) Cardiovascular: Cardiovascular: Denies chest pain and Reports dyspnea Respiratory: Respiratory: Reports dyspnea Gastrointestinal: Gastrointestinal: Reports abdominal pain, Reports nausea and Denies vomiting Exam Narrative: Exam Narrative: PHYSICAL EXAM: WEIGHT 76.2 kg BMI 28.8 General: Elderly, well-developed well-nourished HEENT: That head is normocephalic atraumatic, pupils are equal and reactive, no scleral icterus, positive conjunctival pallor, nasal cannula in place, petechiae to the underside
[2021-02-16 14:29] LABS: Basophils Percent Auto 0.2 % (0.2-1.2); Eosinophils Absolute Auto 0.1 K/mm3 (0-0.3); Eosinophils Percent Auto 1.5 % (0-4.4); Hematocrit 30.5 % (37.0-47.0); Hemoglobin 9.6 g/dL (12.0-15.0); Immature Granulocyte Absolute 0.12 K/mm3 (0.00-0.031); Immature Granulocyte Percent A 1.5 % (0-0.5); Lymphocytes Absolute Auto 0.49 K/mm3 (0.9-3.2); Lymphocytes Percent Auto 6.1 % (18.3-44.2); Mean Corpuscular HGB Conc 31.5 g/dl (32-36); Mean Corpuscular Hemoglobin 29.4 pg (26-34); Mean Corpuscular Volume 93.6 fl (80-100); Mean Platelet Volume 10.5 fl (7.4-10.4); Monocytes Absolute Auto 0.4 K/mm3 (0.1-0.6); Monocytes Percent Auto 5.2 % (2.6-8.5); Neutrophils Absolute Auto 6.9 K/mm3 (1.3-6.7); Neutrophils Percent Auto 85.5 % (45.5-73.1); Platelet Count Result 267 k/mm3 (150-375); Red Blood Count 3.26 M/mm3 (4.2-5.4); Red Cell Distribution Width 23.2 % (11.5-14.5); White Blood Count 8.1 K/mm3 (4.5-10.0)
[2021-02-16 14:45] LABS: Anion Gap 4 mmol/L (8-16); Blood Urea Nitrogen 11 mg/dL (7-17); Calcium 8.2 mg/dL (8.4-10.2); Carbon Dioxide 28 mmol/L (22-30); Chloride 103 mmol/L (98-107); Estimated CRCL calculation 47 ml/min; Estimated Glomerular Filt Rate > 60; Glucose 105 mg/dL (65-105); Potassium 2.3 mmol/L (3.4-5.0); Sodium 135 mmol/L (137-145)
[2021-02-16] MEDS: WARFARIN (*PBKC) 5 MG TABLET PO (16:14)
[2021-02-16] MEDS: HEPARIN SOD/D5W 100 UNITS/ML 25,000 UNITS/250 ML BAG 9 UNITS IV CONT (17:21)
[2021-02-16 19:47] LABS: Partial Thromboplastin Time 112.3 SECONDS (22.3-36.8)
[2021-02-17] VITALS (12 sets, daily range): BP systolic 124–145; BP diastolic 56–69; PULSE 60–81; RESP 18; TEMP 36.2–37; O2SAT 93–97
[2021-02-17 01:54] LABS: Partial Thromboplastin Time 113.8 SECONDS (22.3-36.8)
[2021-02-17] MEDS: MORPHINE SULFATE (*CRX) 2 MG/ML INJ 1 MG IV PUSH ×2 (05:30→11:26)
[2021-02-17] MEDS: SUCRALFATE SUSP 100 MG/ML 10 ML UDC 1000 MG PO ×4 (05:30→20:46)
[2021-02-17] MEDS: ONDANSETRON INJ 4 MG/2 ML VIAL IV PUSH ×2 (05:43→11:25)
[2021-02-17 07:19] LABS: INR 1.2; Prothrombin Time 15.5 Seconds (11.1-14.7)
[2021-02-17 08:38] LABS: Partial Thromboplastin Time 98.9 SECONDS (22.3-36.8)
[2021-02-17] MEDS: PANTOPRAZOLE 40 MG TABLET PO (08:45)
[2021-02-17] MEDS: MIDODRINE HCL 10 MG TABLET PO ×3 (08:45→17:05)
--- NOTE | 2021-02-17 10:56 | PM.IMPN ---
Progress Note: A&P Assessment and Plan (1) Pulmonary embolism: Qualifiers: Pulmonary embolism type: multiple subsegmental (without acute cor pulmonale) Qualified Code(s): I26.94 - Multiple subsegmental pulmonary emboli without acute cor pulmonale Code(s): I26.99 - Other pulmonary embolism without acute cor pulmonale Status: Acute Assessment and Plan: PATIENT IS CURRENTLY ON HEPARIN DRIP WILL CONTINUE TO MONITOR H&H 2D ECHO HAS BEEN REVIEWED WILL START COUMADIN WILL DISCONTINUE NOVEL ANTICOAGULANT Patient is on room air Awaiting labs (2) Acute deep vein thrombosis (DVT) of right lower extremity: Qualifiers: Affected thrombotic vein of extremity: femoral Qualified Code(s): I82.411 - Acute embolism and thrombosis of right femoral vein Code(s): I82.401 - Acute embolism and thrombosis of unspecified deep veins of right lower extremity Status: Acute Assessment and Plan: CURRENTLY ON HEPARIN DRIP (3) Acute respiratory failure with hypoxia: Code(s): J96.01 - Acute respiratory failure with hypoxia Status: Acute Assessment and Plan: LIKELY SECONDARY TO PULMONARY EMBOLISM CONTINUE TO MONITOR CONTINUE OXYGEN TRY AND KEEP OXYGEN SATURATION AT 94% STABLE (4) Pneumonia: Qualifiers: Laterality: bilateral Lung location: unspecified part of lung Pneumonia type: due to unspecified organism Qualified Code(s): J18.9 - Pneumonia, unspecified organism Code(s): J18.9 - Pneumonia, unspecified organism Status: Acute Assessment and Plan: PATIENT IS CURRENTLY ON ZOSYN AWAIT CULTURES (5) Elevated troponin: Code(s): R77.8 - Other specified abnormalities of plasma proteins Status: Acute Assessment and Plan: LIKELY TO BE A TROPONIN LEAK SECONDARY TO PULMONARY EMBOLISM DOUBTFUL OF ACUTE CORONARY SYNDROME Additional Plan The patient has pulmonary embolism secondary to right lower extremity DVT. The patient's DVTs likely the result of her immobility and the recent discontinuation of her chronic anticoagulation due to GI blood losses. Patient is currently on a heparin drip. If the patient's hemoglobin drops further on heparin drip patient may need consider IVC filter placement. Patient does have new acute hypoxic respiratory failure likely secondary to a pulmonary embolism. CT does demonstrate evidence of pulmonary hypertension. I could not find documentation of patient having prior pulmonary hypertension so she may have some right heart strain. Echocardiogram has been ordered for further evaluation. CT of the chest demonstrates possible pneumonia however I suspect the knees are more consistent with pulmonary edema/CHF due to right heart strain. The patient was placed on empiric antibiotic therapy by ER staff. If the patient's white count remains stable I would consider discontinuing Zosyn in next 24-48 hours. Radiology stated that COVID infection was a consideration but this is less likely given the pain COVID vaccine in December and the patient has been afebrile. The patient's troponin was also elevated but is trending downward. Her troponin elevation is likely due to strain from her pulmonary embolism. Patient states that she is not feeling well today she had an episode of nausea but no vomiting continues to complain of epigastric pain we have obtained a consult with GI in the meantime continue supportive care clear liquids only. Subjective Date/time seen: 02/17/21 10:56 I am not doing well Review of Systems Review of Systems: All systems reviewed & are unremarkable except as noted in HPI and below Constitutional: Constitutional: Denies chills and Denies fever(s) Cardiovascular: Cardiovascular: Denies chest pain and Reports dyspnea Respiratory: Respiratory: Reports dyspnea Gastrointestinal: Gastrointestinal: Reports abdominal pain, Reports nausea and Denies vomiting Exam Narrative: Exam Narrative:
[2021-02-17 11:06] LABS: Basophils Percent Auto 0.3 % (0.2-1.2); Eosinophils Absolute Auto 0.4 K/mm3 (0-0.3); Eosinophils Percent Auto 4.5 % (0-4.4); Hematocrit 29.8 % (37.0-47.0); Hemoglobin 9.4 g/dL (12.0-15.0); Immature Granulocyte Absolute 0.15 K/mm3 (0.00-0.031); Immature Granulocyte Percent A 1.9 % (0-0.5); Lymphocytes Absolute Auto 1.03 K/mm3 (0.9-3.2); Lymphocytes Percent Auto 13.1 % (18.3-44.2); Mean Corpuscular HGB Conc 31.5 g/dl (32-36); Mean Corpuscular Hemoglobin 29.6 pg (26-34); Mean Corpuscular Volume 93.7 fl (80-100); Mean Platelet Volume 11.4 fl (7.4-10.4); Monocytes Absolute Auto 0.6 K/mm3 (0.1-0.6); Monocytes Percent Auto 7.6 % (2.6-8.5); Neutrophils Absolute Auto 5.7 K/mm3 (1.3-6.7); Neutrophils Percent Auto 72.6 % (45.5-73.1); Platelet Count Result 288 k/mm3 (150-375); Red Blood Count 3.18 M/mm3 (4.2-5.4); Red Cell Distribution Width 22.9 % (11.5-14.5); White Blood Count 7.9 K/mm3 (4.5-10.0)
[2021-02-17 11:15] LABS: Anion Gap 4 mmol/L (8-16); Blood Urea Nitrogen 12 mg/dL (7-17); Calcium 8.2 mg/dL (8.4-10.2); Carbon Dioxide 29 mmol/L (22-30); Chloride 103 mmol/L (98-107); Estimated CRCL calculation 47 ml/min; Estimated Glomerular Filt Rate > 60; Glucose 86 mg/dL (65-105); Potassium 2.6 mmol/L (3.4-5.0); Sodium 136 mmol/L (137-145)
[2021-02-17 11:52] LABS: Platelet Estimate Adequate (Adequate)
[2021-02-17 11:54] LABS: Acanthocytes 1+ (NORMAL); Anisocytosis 2+ (NORMAL); Hypochromasia 1+ (NORMAL); Ovalocytes 2+ (NORMAL); Target Cells 1+ (NORMAL); Tear Drop Cells 1+ (NORMAL)
--- NOTE | 2021-02-17 12:48 | WPDGIPROGNO ---
Progress Note: A&P Additional Plan A. Epigastric pain, n, v ? cause - Recent EGD unremarkable - Reglan 10 IV achs B. Anemia - EGD/colon done - Consider WCE when patient improved Case d/w Dr. Milligan Further recs per Dr. Vargas Full consult dictated #[id number] Krzysztof [phone] Subjective Date/time seen: 02/17/21 12:48 Objective Data Vital Signs Vital Signs: Vital Signs - 24 hr 02/16/21 14:00 02/16/21 16:00 02/16/21 20:00 Temperature 36.4 C Pulse Rate 63 60 63 Respiratory Rate 20 Blood Pressure 159/77 H Pulse Oximetry 97 02/16/21 20:30 02/16/21 21:21 02/17/21 00:00 Temperature 36.5 C Pulse Rate 60 60 Respiratory Rate 20 Blood Pressure 147/76 H Pulse Oximetry 94 94 02/17/21 04:00 02/17/21 06:23 02/17/21 08:00 Temperature 37.0 C Pulse Rate 62 62 60 Respiratory Rate 18 Blood Pressure 124/63 Pulse Oximetry 93 02/17/21 08:09 02/17/21 08:45 02/17/21 12:00 Temperature Pulse Rate 60 Respiratory Rate 18 Blood Pressure Pulse Oximetry 93 93 Intake/Output Intake/Output: Intake & Output 02/14/21 02/15/21 02/16/21 02/17/21 23:59 23:59 23:59 23:59 Intake Total 057 474 5157 350 Output Total 200 402 Balance 841 673 5421 350 Meds/Results Medications: Active Medications Generic Name Dose Route Start Last Admin Trade Name Freq PRN Reason Stop Dose Admin Acetaminophen 1,000 mg 02/14/21 21:05 02/15/21 23:23 Acetaminophen 500 Mg Tablet PO 1,000 mg Q12H PRN Administration Pain Rated 1-3 Heparin Sodium (Porcine) 5,000 units 02/14/21 14:22 02/16/21 06:11 Heparin Sodium 5,000 Units/Ml Vial IV PUSH 5,000 units PRN PRN Administration aPTT less than 55 seconds Heparin Sodium (Porcine) 2,500 units 02/14/21 14:22 Heparin Sodium 5,000 Units/Ml Vial IV PUSH PRN PRN aPTT 55 - 70 seconds Heparin Sodium/Dextrose 25,000 units in 250 mls @ 7 mls/hr 02/14/21 14:25 02/17/21 02:22 Heparin Sodium/D5w 100 Units/Ml IV CONT 700 units/hr .Q24H JONY 7 mls/hr Titration Protocol 700 UNITS/HR Piperacillin Sod/Tazobactam Sod 4.5 gm in 100 mls @ 200 mls/hr 02/14/21 21:00 02/17/21 09:15 Zosyn 4.5 Gm/D5w 100 Ml IVPB Infused Q6H JONY Infusion Potassium Chloride 500 mls @ 125 mls/hr 02/17/21 11:38 Kcl 40 Meq/D5w 500 Ml Peripheral IVPB 02/17/21 15:37 ONCE ONE Metoclopramide HCl 10 mg 02/17/21 12:00 Metoclopramide Hcl Inj 10 Mg/2 Ml Vial IV PUSH Q6HR JONY Midodrine 10 mg 02/15/21 09:00 02/17/21 08:45 Midodrine Hcl 10 Mg Tablet PO 10 mg TID JONY Administration Morphine Sulfate 1 mg 02/16/21 09:39 02/17/21 11:26 Morphine Sulfate (*Crx) 2 Mg/Ml Inj IV PUSH 1 mg Q4H PRN Administration Pain Rated 7-10 Ondansetron HCl 4 mg 02/14/21 14:33 02/17/21 11:25 Ondansetron Inj 4 Mg/2 Ml Vial IV PUSH 4 mg Q4H PRN Administration Nausea Pantoprazole Sodium 40 mg 02/15/21 09:00 02/17/21 08:45 Pantoprazole 40 Mg Tablet PO 40 mg QAM JONY Administration Sucralfate 1,000 mg 02/14/21 21:45 02/17/21 11:25 Sucralfate Susp 100 Mg/Ml 10 Ml Udc PO 1,000 mg ACHS JONY Administration Warfarin Sodium 5 mg 02/16/21 17:00 02/16/21 16:14 Warfarin (*Pbkc) 5 Mg Tablet PO 5 mg DAILY@1700 JONY Administration Radiology Results: ITS Impressions Chest X-Ray 02/14/21 10:42 Impression: 1: Right upper lobe airspace disease, suspicious for pneumonia. 2: Small pleural effusion with basilar atelectasis. Abdomen X-Ray 02/14/21 11:32 Impression: 1: Nonobstructive bowel gas pattern. 2: Bibasilar infiltrates, most likely atelectasis/scarring. 3: Small pleural effusions. Venous Doppler Study 02/14/21 13:42 IMPRESSION: 1. Positive for right-sided DVT as above. 2. No left DVT. Chest CTA 02/14/21 14:15 IMPRESSION: 1. Bilateral pulmonary emboli, moderate clot burden. 2. Moderate amount of bilateral groundglas
[2021-02-17] MEDS: METOCLOPRAMIDE HCL INJ 10 MG/2 ML VIAL IV PUSH ×2 (12:59→18:14)
[2021-02-17] MEDS: BELLADONNA ALK/PHENOB ELIX 10 ML, MAG HYDROX/ALUMINUM HYD/SIMETH 30 ML, LIDOCAINE HCL 2... PO (14:36)
[2021-02-17 14:56] LABS: Partial Thromboplastin Time 98.6 SECONDS (22.3-36.8)
[2021-02-17] MEDS: WARFARIN (*PBKC) 5 MG TABLET PO (17:05)
--- NOTE | 2021-02-17 18:30 | CONS_ITS ---
DATE OF CONSULTATION: 02/17/2021 HISTORY OF PRESENT ILLNESS: 80-year-old female seen with her granddaughter at her bedside. PRIMARY CARE PROVIDER: Dr. Damon. PRIMARY TILE DITCHER: Dr. Veloz. The patient has history of atrial fibrillation with pacemaker, chronic kidney disease, TIA, GI blood loss anemia, osteoarthritis, osteopenia, brain tumor in the past, vitamin D deficiency, hysterectomy, partial right lung resection, hiatal hernia repair, cholecystectomy, who has now developed DVT and pulmonary embolus. I am now asked to provide GI evaluation at the request of the hospitalist service for abdominal pain, nausea, and vomiting. Patient now has DVT/PE and is on IV heparin. Patient states that she has had epigastric pain for approximately 1 month, that is there most of the time. It is unaffected by oral intake or bowel movement. She has nausea that worsens with eating. No vomiting. There is no coffee-ground or hematemesis. She has a poor appetite and has lost approximately 60 pounds over the past 6 months. She otherwise denies problems with heartburn, trouble swallowing, constipation, hematochezia, or melena. Her bowels are generally loose. No fever, jaundice, scleral icterus, dark urine, light stools, itching, hot or cold intolerance, or chest pain. No hematuria, dysuria, new cough or visual changes, tingling of the skin, bone pain, or tremors. She does have some easy bruising. The patient was previously noted to have significant anemia and weight loss and was on Xarelto. The Xarelto was discontinued in December 2020. On January 16, 2021, patient had upper endoscopy by Dr. Vargas, which showed a small hiatal hernia and some petechiae. These were treated with APC. On August 29, 2020, the patient had 6 mm ascending colon and 10 mm sigmoid colon adenomas. Also diverticulosis. Patient had pacemaker battery changed January 29 and on February 04, the patient presented with nausea and vomiting. CT scan showed colitis and she was treated with IV Flagyl, ultimately changed to oral vancomycin. No endocarditis risk factors. ALLERGIES: TO DULOXETINE AND ASPIRIN. MEDICATIONS: Include midodrine, Protonix 40 mg daily, Linzess, Carafate, iron, D3. SOCIAL HISTORY: Nonsmoker, nondrinker. FAMILY HISTORY: Negative for GI malignancy. Endoscopy as above. PHYSICAL EXAM: GENERAL: An elderly female lying in bed, who looks uncomfortable. MUSCULOSKELETAL: She has 1 to 2+ bilateral lower extremity edema. No jaundice, spider angioma, palmar erythema. HEENT: Skull is normocephalic, atraumatic. Pupils nonicteric. Oropharynx clear. NECK: Supple without thyromegaly. LUNGS: Clear to auscultation. HEART: Rate and rhythm regular. S1, S2 normal. ABDOMEN: Normoactive bowel sounds, soft, mild diffuse tenderness mostly epigastric, nonrigid, nondistended without hepatosplenomegaly, mass, no hepatosplenomegaly or masses. RECTAL: Deferred. NEURO: Conscious and alert x3. LABS: On February 17, PTT is 99. On February 16, hematocrit 31, white count of 8. PTT is greater than 200. INR is 1. On February 15, T bilirubin 0.6, alkaline phosphatase 115, AST is 80, ALT is 47. On 02/14, hematocrit 36, white count 96, T bilirubin 0.6, alkaline phosphatase 115, AST is 88, ALT is 47. On 02/14, MCV is 96, lipase is 70. On February 08, stool is heme negative. On January 15, 2021, hepatitis screen is negative. On February 07, 2021, a CT scan of the abdomen and pelvis showed hiatal hernia, was otherwise unremarkable. ASSESSMENT AND PLAN: 1. Epigastric pain, nausea, vomiting, weight loss. Unlikely to be ulcer given patient's recent bleed, negative upper endoscopy. More likely related to medication and overall illness. Daphney
[2021-02-17 20:37] LABS: Magnesium 1.6 mg/dL (1.6-2.3); Phosphorus 2.6 mg/dL (2.5-4.5); Potassium 3.2 mmol/L (3.4-5.0)
[2021-02-18] VITALS (11 sets, daily range): BP systolic 98–145; BP diastolic 52–68; PULSE 57–63; RESP 16–20; TEMP 36.1–36.8; O2SAT 92–96
[2021-02-18] MEDS: METOCLOPRAMIDE HCL INJ 10 MG/2 ML VIAL IV PUSH ×5 (00:28→23:34)
[2021-02-18] MEDS: MORPHINE SULFATE (*CRX) 2 MG/ML INJ 1 MG IV PUSH ×4 (01:02→23:34)
[2021-02-18 06:07] LABS: INR 2.5; Prothrombin Time 27.5 Seconds (11.1-14.7)
[2021-02-18 06:09] LABS: Partial Thromboplastin Time 94.9 SECONDS (22.3-36.8)
[2021-02-18] MEDS: SUCRALFATE SUSP 100 MG/ML 10 ML UDC 1000 MG PO ×4 (06:14→20:31)
[2021-02-18] MEDS: POTASSIUM CHLORIDE 20 MEQ PACKET (FOR LIQUID) 40 MEQ PO (08:11)
[2021-02-18] MEDS: MAGNESIUM SULF 2 GM/WATER 50ML 2 GM/50 ML BAG IVPB (08:11)
[2021-02-18] MEDS: MIDODRINE HCL 10 MG TABLET PO ×3 (08:17→16:25)
[2021-02-18] MEDS: PANTOPRAZOLE 40 MG TABLET PO (08:17)
[2021-02-18 10:37] LABS: Basophils Percent Auto 0.3 % (0.2-1.2); Eosinophils Absolute Auto 0.3 K/mm3 (0-0.3); Eosinophils Percent Auto 4.7 % (0-4.4); Hemoglobin 9.3 g/dL (12.0-15.0); Immature Granulocyte Absolute 0.24 K/mm3 (0.00-0.031); Immature Granulocyte Percent A 3.5 % (0-0.5); Lymphocytes Absolute Auto 1.08 K/mm3 (0.9-3.2); Lymphocytes Percent Auto 15.8 % (18.3-44.2); Mean Corpuscular Hemoglobin 29.2 pg (26-34); Mean Platelet Volume 10.2 fl (7.4-10.4); Monocytes Absolute Auto 0.6 K/mm3 (0.1-0.6); Monocytes Percent Auto 8.5 % (2.6-8.5); Neutrophils Absolute Auto 4.6 K/mm3 (1.3-6.7); Neutrophils Percent Auto 67.2 % (45.5-73.1); Platelet Count Result 272 k/mm3 (150-375); Red Blood Count 3.19 M/mm3 (4.2-5.4); Red Cell Distribution Width 23.3 % (11.5-14.5); White Blood Count 6.8 K/mm3 (4.5-10.0)
[2021-02-18 10:46] LABS: Potassium 3.3 mmol/L (3.4-5.0)
[2021-02-18 10:52] LABS: Anion Gap 2 mmol/L (8-16); Blood Urea Nitrogen 12 mg/dL (7-17); Calcium 8.3 mg/dL (8.4-10.2); Carbon Dioxide 29 mmol/L (22-30); Chloride 103 mmol/L (98-107); Estimated CRCL calculation 48 ml/min; Estimated Glomerular Filt Rate > 60; Glucose 111 mg/dL (65-105); Sodium 134 mmol/L (137-145)
--- NOTE | 2021-02-18 11:34 | PM.IMPN ---
Progress Note: A&P Assessment and Plan (1) Pulmonary embolism: Qualifiers: Pulmonary embolism type: multiple subsegmental (without acute cor pulmonale) Qualified Code(s): I26.94 - Multiple subsegmental pulmonary emboli without acute cor pulmonale Code(s): I26.99 - Other pulmonary embolism without acute cor pulmonale Status: Acute Assessment and Plan: PATIENT IS CURRENTLY ON HEPARIN DRIP WILL CONTINUE TO MONITOR H&H 2D ECHO HAS BEEN REVIEWED WILL START COUMADIN WILL DISCONTINUE NOVEL ANTICOAGULANT Patient is on room air Awaiting labs INR IS THERAPEUTIC PATIENT WAS STARTED ON COUMADIN GIVEN PATIENT'S RISK FOR BLEEDING FOOT WAS A BETTER CHOICE IT CAN BE REVERTED (2) Acute deep vein thrombosis (DVT) of right lower extremity: Qualifiers: Affected thrombotic vein of extremity: femoral Qualified Code(s): I82.411 - Acute embolism and thrombosis of right femoral vein Code(s): I82.401 - Acute embolism and thrombosis of unspecified deep veins of right lower extremity Status: Acute Assessment and Plan: CURRENTLY ON HEPARIN DRIP HEPARIN DRIP HAS BEEN DISCONTINUED (3) Acute respiratory failure with hypoxia: Code(s): J96.01 - Acute respiratory failure with hypoxia Status: Acute Assessment and Plan: LIKELY SECONDARY TO PULMONARY EMBOLISM CONTINUE TO MONITOR CONTINUE OXYGEN TRY AND KEEP OXYGEN SATURATION AT 94% STABLE (4) Pneumonia: Qualifiers: Laterality: bilateral Lung location: unspecified part of lung Pneumonia type: due to unspecified organism Qualified Code(s): J18.9 - Pneumonia, unspecified organism Code(s): J18.9 - Pneumonia, unspecified organism Status: Acute Assessment and Plan: PATIENT IS CURRENTLY ON ZOSYN AWAIT CULTURES WILL DISCONTINUE ZOSYN PATIENT HAS RECEIVED 5 DAYS OF IV ANTIBIOTIC THERAPY AND CULTURES HAVE BEEN NEGATIVE WILL CONTINUE TO MONITOR (5) Elevated troponin: Code(s): R77.8 - Other specified abnormalities of plasma proteins Status: Acute Assessment and Plan: LIKELY TO BE A TROPONIN LEAK SECONDARY TO PULMONARY EMBOLISM DOUBTFUL OF ACUTE CORONARY SYNDROME Additional Plan The patient has pulmonary embolism secondary to right lower extremity DVT. The patient's DVTs likely the result of her immobility and the recent discontinuation of her chronic anticoagulation due to GI blood losses. Patient is currently on a heparin drip. If the patient's hemoglobin drops further on heparin drip patient may need consider IVC filter placement. Patient does have new acute hypoxic respiratory failure likely secondary to a pulmonary embolism. CT does demonstrate evidence of pulmonary hypertension. I could not find documentation of patient having prior pulmonary hypertension so she may have some right heart strain. Echocardiogram has been ordered for further evaluation. CT of the chest demonstrates possible pneumonia however I suspect the knees are more consistent with pulmonary edema/CHF due to right heart strain. The patient was placed on empiric antibiotic therapy by ER staff. If the patient's white count remains stable I would consider discontinuing Zosyn in next 24-48 hours. Radiology stated that COVID infection was a consideration but this is less likely given the pain COVID vaccine in December and the patient has been afebrile. The patient's troponin was also elevated but is trending downward. Her troponin elevation is likely due to strain from her pulmonary embolism. Patient states that she is not feeling well today she had an episode of nausea but no vomiting continues to complain of epigastric pain we have obtained a consult with GI in the meantime continue supportive care clear liquids only. HEPARIN DRIP HAS BEEN DISCONTINUED HAS BEEN STARTED ON COUMADIN. Subjective Date/time seen: 02/18/21 11:34 PATIENT STILL COMPLAINING OF EPIGASTRIC PAIN Review of Systems Review of Sys
--- NOTE | 2021-02-18 12:26 | PCNFU ---
Nutrition Follow-Up Complete: Inadequate oral intake related to poor appetite as evidenced by patient statements, documented 36 pound weight loss x 1 year without trying. Goal: Patient to meet estimated nutritional needs. Patient has not met current goal. We will continue current goal. Pt current nutrition is clear liquids. Last recorded weight is 77.2 kg, 76 kg on admit. Bowel Motility:+BM reported 02/16 Labs Reviewed: K 2.6,Na 136,Hct 29.8,Hgb 9.4 Meds Noted:Zofran,Carafate,Reglan,Zofran,Coumadin,Protonix, Heparin. Additional Notes: Patient seen today for nutrition follow up. She states to still not feeling well. Diet has been downgraded to clear liquids. She did have a few bites of the Frozen nutritional treat today. PO intake was encouraged. Monitoring: Follow up in 3 days.
--- NOTE | 2021-02-18 14:51 | WPDGIPROGNO ---
Progress Note: A&P Assessment and Plan (1) Nausea and vomiting: Code(s): R11.2 - Nausea with vomiting, unspecified Status: Acute Assessment and Plan: some nausea, started on reglan. Also similar epigastric pain for last few months (EGD 2 months ago only gastritis with petechia treated with APC in setting of anemia but no active gib), colonoscopy last year only polyps (no colitis)- reason of scopes was acute on chronic anemia ok to advance diet (2) Epigastric pain: Code(s): R10.13 - Epigastric pain Status: Acute Assessment and Plan: abdominal exam benign, CT scan reviewed and recent egd only gastritis with small hiatal hernia pain could be multifactorial (now PE, also pulmonary congestion with possible pneumonia, noted lumbar fracture, etc) (3) Chronic anemia: Code(s): D64.9 - Anemia, unspecified Status: Acute Assessment and Plan: work up with colonoscopy last year, EGD x2- last time APC of petechia but no active bleeding. she also is seeing hematology because of anemia stable hb and not overt GIB we can complete SB capsule endoscopy as outpatient (4) Pulmonary embolism: Qualifiers: Pulmonary embolism type: multiple subsegmental (without acute cor pulmonale) Qualified Code(s): I26.94 - Multiple subsegmental pulmonary emboli without acute cor pulmonale Code(s): I26.99 - Other pulmonary embolism without acute cor pulmonale Status: Acute Assessment and Plan: new diagnosis, now on blood thinners stable hb (5) Acute deep vein thrombosis (DVT) of right lower extremity: Qualifiers: Affected thrombotic vein of extremity: femoral Qualified Code(s): I82.411 - Acute embolism and thrombosis of right femoral vein Code(s): I82.401 - Acute embolism and thrombosis of unspecified deep veins of right lower extremity Status: Acute (6) Acute respiratory failure with hypoxia: Code(s): J96.01 - Acute respiratory failure with hypoxia Status: Acute (7) Pneumonia: Qualifiers: Laterality: bilateral Lung location: unspecified part of lung Pneumonia type: due to unspecified organism Qualified Code(s): J18.9 - Pneumonia, unspecified organism Code(s): J18.9 - Pneumonia, unspecified organism Status: Acute Assessment and Plan: on antibiotics Subjective Date/time seen: 02/18/21 14:51 Interval history: still with epigastric pain, family member at bedside. She is not longer on iv heparin. No overt GIB Review of Systems Review of Systems: All systems reviewed & are unremarkable except as noted in HPI and below Exam Const: General: comfortable and ill appearing chronically HENMT: General nose exam: Normal nares present Eyes: General: appearance normal, both eyes and all related structures Neck: Neck: supple Resp: Auscultation: clear to auscultation bilaterally and diminished lung sounds Cardio: Rate: regular rate GI: Inspection: non-distended GI Palp: Yes Soft to palpation, No Firmness to palpation present (GI), No Tenderness to palpation present (GI) and No Guarding due to palpation present (GI) Auscultation: normal bowel sounds Skin: General skin exam: normal color Neuro: Speech: normal speech Extrem: General: normal to inspection Psych: Mental Status: mental status grossly normal Objective Data Vital Signs Vital Signs: Vital Signs - 24 hr 02/17/21 16:00 02/17/21 20:40 02/17/21 21:00 Temperature Pulse Rate 60 60 Respiratory Rate Blood Pressure Pulse Oximetry 96 02/17/21 22:00 02/18/21 00:00 02/18/21 04:00 Temperature 98.5 F Pulse Rate 81 57 L 60 Respiratory Rate 18 Blood Pressure 133/56 L Pulse Oximetry 97 02/18/21 06:00 02/18/21 07:40 02/18/21 08:00 Temperature 97.4 F L Pulse Rate 62 63 Respiratory Rate 18 Blood Pressure 142/59 H Pulse Oximetry 96 92 02/18/21 10:00 02/18/21 12:00 02/18/21 12:30 Temperature 96.9
[2021-02-18] MEDS: WARFARIN (*PBKC) 5 MG TABLET PO (16:25)
[2021-02-19] VITALS (10 sets, daily range): BP systolic 125–146; BP diastolic 62–66; PULSE 60–63; RESP 18–20; TEMP 36–36.6; O2SAT 91–95
[2021-02-19 05:42] LABS: INR 4.1; Prothrombin Time 40.1 Seconds (11.1-14.7)
[2021-02-19 05:44] LABS: Basophils Percent Auto 0.4 % (0.2-1.2); Eosinophils Absolute Auto 0.4 K/mm3 (0-0.3); Eosinophils Percent Auto 5.1 % (0-4.4); Hematocrit 30.4 % (37.0-47.0); Hemoglobin 9.6 g/dL (12.0-15.0); Immature Granulocyte Absolute 0.16 K/mm3 (0.00-0.031); Immature Granulocyte Percent A 2.1 % (0-0.5); Lymphocytes Absolute Auto 0.89 K/mm3 (0.9-3.2); Lymphocytes Percent Auto 11.7 % (18.3-44.2); Mean Corpuscular HGB Conc 31.6 g/dl (32-36); Mean Corpuscular Hemoglobin 29.4 pg (26-34); Mean Corpuscular Volume 93.3 fl (80-100); Mean Platelet Volume 10.1 fl (7.4-10.4); Monocytes Absolute Auto 0.6 K/mm3 (0.1-0.6); Monocytes Percent Auto 7.9 % (2.6-8.5); Neutrophils Absolute Auto 5.5 K/mm3 (1.3-6.7); Neutrophils Percent Auto 72.8 % (45.5-73.1); Platelet Count Result 299 k/mm3 (150-375); Red Blood Count 3.26 M/mm3 (4.2-5.4); Red Cell Distribution Width 23.5 % (11.5-14.5); White Blood Count 7.6 K/mm3 (4.5-10.0)
[2021-02-19 05:58] LABS: Anion Gap 1 mmol/L (8-16); Blood Urea Nitrogen 9 mg/dL (7-17); Calcium 8.1 mg/dL (8.4-10.2); Carbon Dioxide 30 mmol/L (22-30); Chloride 102 mmol/L (98-107); Estimated CRCL calculation 63 ml/min; Estimated Glomerular Filt Rate > 60; Glucose 90 mg/dL (65-105); Potassium 2.7 mmol/L (3.4-5.0); Sodium 133 mmol/L (137-145)
[2021-02-19] MEDS: METOCLOPRAMIDE HCL INJ 10 MG/2 ML VIAL IV PUSH ×4 (06:06→23:09)
[2021-02-19] MEDS: SUCRALFATE SUSP 100 MG/ML 10 ML UDC 1000 MG PO ×4 (06:06→20:54)
[2021-02-19] MEDS: MORPHINE SULFATE (*CRX) 2 MG/ML INJ 1 MG IV PUSH ×4 (06:15→23:07)
[2021-02-19] MEDS: MIDODRINE HCL 10 MG TABLET PO ×3 (09:26→17:43)
[2021-02-19] MEDS: POTASSIUM CHLORIDE 20 MEQ PACKET (FOR LIQUID) 40 MEQ PO ×2 (09:26→17:43)
[2021-02-19] MEDS: PANTOPRAZOLE 40 MG TABLET PO (09:26)
--- NOTE | 2021-02-19 11:55 | PC.NURSE ---
Notified Dr. Marinelli of elevated INR of 4.1 and existing Coumadin order.
--- NOTE | 2021-02-19 12:41 | PM.IMPN ---
Progress Note: A&P Assessment and Plan (1) Pulmonary embolism: Qualifiers: Pulmonary embolism type: multiple subsegmental (without acute cor pulmonale) Qualified Code(s): I26.94 - Multiple subsegmental pulmonary emboli without acute cor pulmonale Code(s): I26.99 - Other pulmonary embolism without acute cor pulmonale Status: Acute Assessment and Plan: Pt is on Coumadin INR is high today hold todays dose (2) Acute deep vein thrombosis (DVT) of right lower extremity: Qualifiers: Affected thrombotic vein of extremity: femoral Qualified Code(s): I82.411 - Acute embolism and thrombosis of right femoral vein Code(s): I82.401 - Acute embolism and thrombosis of unspecified deep veins of right lower extremity Status: Acute Assessment and Plan: Transition to Coumadin (3) Acute respiratory failure with hypoxia: Code(s): J96.01 - Acute respiratory failure with hypoxia Status: Acute Assessment and Plan: LIKELY SECONDARY TO PULMONARY EMBOLISM Continue to oxygenate (4) Pneumonia: Qualifiers: Laterality: bilateral Lung location: unspecified part of lung Pneumonia type: due to unspecified organism Qualified Code(s): J18.9 - Pneumonia, unspecified organism Code(s): J18.9 - Pneumonia, unspecified organism Status: Acute Assessment and Plan: Rpt Cxr tomorrow, BC full report still awaiting. (5) Elevated troponin: Code(s): R77.8 - Other specified abnormalities of plasma proteins Status: Acute Assessment and Plan: LIKELY TO BE A TROPONIN LEAK SECONDARY TO PULMONARY EMBOLISM Unlikely ischemic related. Subjective Date/time seen: 02/19/21 12:41 Interval history: Elderly lady looks weak and unwell, currently on 2 liters of oxygen. Review of Systems Review of Systems: All systems reviewed & are unremarkable except as noted in HPI and below Exam Narrative: Exam Narrative: General: Elderly, tired unwell Respiratory: Clear to auscultation bilaterally Cardiovascular: Regular rate, regular rhythm, 2+ bilateral radial pedal pulses Gastrointestinal: Nondistended, tender in epigastric region, positive bowel sounds, soft Skin: Generalized pallor, non jaundice Musculoskeletal: 1+ pitting edema left lower extremity 2 to 3+ pitting edema right lower extremity Neurological: Alert and oriented x3, speech is clear, moving all 4 limbs Psychiatric: Her flat affect, depressed, cooperative Objective Data Vital Signs Vital Signs: Vital Signs - 24 hr 02/18/21 16:00 02/18/21 20:00 02/18/21 20:50 Temperature 36.2 C L 36.8 C Pulse Rate 60 62 60 Respiratory Rate 18 20 20 Blood Pressure 102/54 L 145/68 H Pulse Oximetry 95 92 92 02/19/21 00:00 02/19/21 04:00 02/19/21 05:03 Temperature 36.6 C Pulse Rate 62 60 63 Respiratory Rate 20 Blood Pressure 130/66 Pulse Oximetry 95 02/19/21 08:00 02/19/21 09:20 02/19/21 12:00 Temperature Pulse Rate 61 61 Respiratory Rate Blood Pressure Pulse Oximetry 91 91 Intake/Output Intake/Output: Intake & Output 02/16/21 02/17/21 02/18/21 02/19/21 23:59 23:59 23:59 23:59 Intake Total 1370 1585 900 830 Output Total 200 Balance 1370 1585 700 830 Meds/Results Medications: Active Medications Generic Name Dose Route Start Last Admin Trade Name Freq PRN Reason Stop Dose Admin Acetaminophen 1,000 mg 02/14/21 21:05 02/15/21 23:23 Acetaminophen 500 Mg Tablet PO 1,000 mg Q12H PRN Administration Pain Rated 1-3 Piperacillin Sod/Tazobactam Sod 4.5 gm in 100 mls @ 200 mls/hr 02/14/21 21:00 02/19/21 11:29 Zosyn 4.5 Gm/D5w 100 Ml IVPB 200 mls/hr Q6H JONY Administration Metoclopramide HCl 10 mg 02/17/21 12:00 02/19/21 11:30 Metoclopramide Hcl Inj 10 Mg/2 Ml Vial IV PUSH 10 mg Q6HR JONY Administration Midodrine 10 mg 02/15/21 09:00 02/19/21 09:26 Midodrine Hcl 10 Mg Tablet PO 10 mg TID S
[2021-02-19 13:14] LABS: Anion Gap 2 mmol/L (8-16); Blood Urea Nitrogen 9 mg/dL (7-17); Calcium 8.1 mg/dL (8.4-10.2); Carbon Dioxide 29 mmol/L (22-30); Chloride 104 mmol/L (98-107); Estimated CRCL calculation 55 ml/min; Estimated Glomerular Filt Rate > 60; Glucose 131 mg/dL (65-105); Magnesium 1.8 mg/dL (1.6-2.3); Potassium 3.8 mmol/L (3.4-5.0); Sodium 135 mmol/L (137-145)
--- NOTE | 2021-02-19 13:30 | WPDGIPROGNO ---
Progress Note: A&P Assessment and Plan (1) Nausea and vomiting: Code(s): R11.2 - Nausea with vomiting, unspecified Status: Acute Assessment and Plan: some nausea, started on reglan. epigastric pain probably from ongoing pulmonary/cardiac event, recent EGD only gastritis ok to advance diet (2) Epigastric pain: Code(s): R10.13 - Epigastric pain Status: Acute Assessment and Plan: abdominal exam benign, CT scan reviewed and recent egd only gastritis with small hiatal hernia (3) Chronic anemia: Code(s): D64.9 - Anemia, unspecified Status: Acute Assessment and Plan: work up with colonoscopy last year, EGD x2- last time APC of petechia but no active bleeding. she also is seeing hematology because of anemia stable hb and not overt GIB, she now is on coumadin because PE/DVT and hb still stable (4) Pulmonary embolism: Qualifiers: Pulmonary embolism type: multiple subsegmental (without acute cor pulmonale) Qualified Code(s): I26.94 - Multiple subsegmental pulmonary emboli without acute cor pulmonale Code(s): I26.99 - Other pulmonary embolism without acute cor pulmonale Status: Acute Assessment and Plan: new diagnosis, now on blood thinners stable hb (5) Acute deep vein thrombosis (DVT) of right lower extremity: Qualifiers: Affected thrombotic vein of extremity: femoral Qualified Code(s): I82.411 - Acute embolism and thrombosis of right femoral vein Code(s): I82.401 - Acute embolism and thrombosis of unspecified deep veins of right lower extremity Status: Acute (6) Acute respiratory failure with hypoxia: Code(s): J96.01 - Acute respiratory failure with hypoxia Status: Acute (7) Pneumonia: Qualifiers: Laterality: bilateral Lung location: unspecified part of lung Pneumonia type: due to unspecified organism Qualified Code(s): J18.9 - Pneumonia, unspecified organism Code(s): J18.9 - Pneumonia, unspecified organism Status: Acute Assessment and Plan: on antibiotics Subjective Date/time seen: 02/19/21 13:30 Interval history: having a lousy day, eating some, similar epigastric pain but benign abdominal exam Review of Systems Review of Systems: All systems reviewed & are unremarkable except as noted in HPI and below Exam Const: General: comfortable and ill appearing chronically HENMT: General nose exam: Normal nares present Eyes: General: appearance normal, both eyes and all related structures Neck: Neck: supple Resp: Auscultation: clear to auscultation bilaterally and diminished lung sounds Cardio: Rate: regular rate GI: Inspection: non-distended GI Palp: Yes Soft to palpation, No Firmness to palpation present (GI), No Tenderness to palpation present (GI) and No Guarding due to palpation present (GI) Auscultation: normal bowel sounds Skin: General skin exam: normal color Neuro: Speech: normal speech Extrem: General: normal to inspection Psych: Mental Status: mental status grossly normal Objective Data Vital Signs Vital Signs: Vital Signs - 24 hr 02/18/21 16:00 02/18/21 20:00 02/18/21 20:50 Temperature 97.2 F L 98.2 F Pulse Rate 60 62 60 Respiratory Rate 18 20 20 Blood Pressure 102/54 L 145/68 H Pulse Oximetry 95 92 92 02/19/21 00:00 02/19/21 04:00 02/19/21 05:03 Temperature 97.8 F Pulse Rate 62 60 63 Respiratory Rate 20 Blood Pressure 130/66 Pulse Oximetry 95 02/19/21 08:00 02/19/21 09:20 02/19/21 12:00 Temperature Pulse Rate 61 61 Respiratory Rate Blood Pressure Pulse Oximetry 91 91 Intake/Output Intake/Output: Intake & Output 02/16/21 02/17/21 02/18/21 02/19/21 23:59 23:59 23:59 23:59 Intake Total 1370 1585 900 830 Output Total 200 Balance 1370 1585 700 830 Meds/Results Medications: Active Medications Generic Name Dose Route Start Last Admin Trade Name Freq PRN Reason Stop Dose
[2021-02-20] VITALS (9 sets, daily range): BP systolic 132–177; BP diastolic 64–69; PULSE 60–67; RESP 16–22; TEMP 36.2–36.5; O2SAT 93–98
[2021-02-20] MEDS: ACETAMINOPHEN 500 MG TABLET 1000 MG PO ×2 (03:10→14:43)
[2021-02-20 05:38] LABS: Basophils Percent Auto 0.3 % (0.2-1.2); Eosinophils Absolute Auto 0.4 K/mm3 (0-0.3); Eosinophils Percent Auto 4.4 % (0-4.4); Hematocrit 29.6 % (37.0-47.0); Hemoglobin 9.4 g/dL (12.0-15.0); Immature Granulocyte Absolute 0.18 K/mm3 (0.00-0.031); Immature Granulocyte Percent A 2.1 % (0-0.5); Lymphocytes Absolute Auto 0.91 K/mm3 (0.9-3.2); Lymphocytes Percent Auto 10.6 % (18.3-44.2); Mean Corpuscular HGB Conc 31.8 g/dl (32-36); Mean Corpuscular Hemoglobin 29.6 pg (26-34); Mean Corpuscular Volume 93.1 fl (80-100); Mean Platelet Volume 10.2 fl (7.4-10.4); Monocytes Absolute Auto 0.7 K/mm3 (0.1-0.6); Monocytes Percent Auto 7.7 % (2.6-8.5); Neutrophils Absolute Auto 6.4 K/mm3 (1.3-6.7); Neutrophils Percent Auto 74.9 % (45.5-73.1); Platelet Count Result 336 k/mm3 (150-375); Red Blood Count 3.18 M/mm3 (4.2-5.4); Red Cell Distribution Width 23.9 % (11.5-14.5); White Blood Count 8.6 K/mm3 (4.5-10.0)
[2021-02-20 05:48] LABS: Anion Gap 3 mmol/L (8-16); Blood Urea Nitrogen 9 mg/dL (7-17); Calcium 8.2 mg/dL (8.4-10.2); Carbon Dioxide 29 mmol/L (22-30); Chloride 103 mmol/L (98-107); Estimated CRCL calculation 63 ml/min; Estimated Glomerular Filt Rate > 60; Glucose 94 mg/dL (65-105); Potassium 3.8 mmol/L (3.4-5.0); Sodium 135 mmol/L (137-145)
[2021-02-20 05:49] LABS: Prothrombin Time 48.1 Seconds (11.1-14.7)
[2021-02-20 05:52] LABS: INR 5.2
[2021-02-20] MEDS: METOCLOPRAMIDE HCL INJ 10 MG/2 ML VIAL IV PUSH ×4 (06:12→23:35)
[2021-02-20] MEDS: SUCRALFATE SUSP 100 MG/ML 10 ML UDC 1000 MG PO ×4 (06:13→20:36)
[2021-02-20] MEDS: MIDODRINE HCL 10 MG TABLET PO ×3 (09:48→17:45)
[2021-02-20] MEDS: POTASSIUM CHLORIDE 20 MEQ PACKET (FOR LIQUID) 40 MEQ PO ×2 (09:48→17:45)
[2021-02-20] MEDS: FUROSEMIDE 40 MG TABLET PO (09:49)
[2021-02-20] MEDS: PANTOPRAZOLE 40 MG TABLET PO (09:49)
--- NOTE | 2021-02-20 11:53 | PM.IMPN ---
Progress Note: A&P Assessment and Plan (1) Pulmonary embolism: Qualifiers: Pulmonary embolism type: multiple subsegmental (without acute cor pulmonale) Qualified Code(s): I26.94 - Multiple subsegmental pulmonary emboli without acute cor pulmonale Code(s): I26.99 - Other pulmonary embolism without acute cor pulmonale Status: Acute Assessment and Plan: Pt is on Coumadin INR is high today hold todays dose (2) Acute deep vein thrombosis (DVT) of right lower extremity: Qualifiers: Affected thrombotic vein of extremity: femoral Qualified Code(s): I82.411 - Acute embolism and thrombosis of right femoral vein Code(s): I82.401 - Acute embolism and thrombosis of unspecified deep veins of right lower extremity Status: Acute Assessment and Plan: Transition to Coumadin (3) Acute respiratory failure with hypoxia: Code(s): J96.01 - Acute respiratory failure with hypoxia Status: Acute Assessment and Plan: LIKELY SECONDARY TO PULMONARY EMBOLISM AND PNEUMONIA Continue to oxygenate (4) Pneumonia: Qualifiers: Laterality: bilateral Lung location: unspecified part of lung Pneumonia type: due to unspecified organism Qualified Code(s): J18.9 - Pneumonia, unspecified organism Code(s): J18.9 - Pneumonia, unspecified organism Status: Resolved Assessment and Plan: WCC is NL, BC negative to date, stop iv antibiotics. (5) Elevated troponin: Code(s): R77.8 - Other specified abnormalities of plasma proteins Status: Acute Assessment and Plan: LIKELY TO BE A TROPONIN LEAK SECONDARY TO PULMONARY EMBOLISM Unlikely ischemic related. (6) Pulmonary edema: Code(s): J81.1 - Chronic pulmonary edema Status: Acute Assessment and Plan: CXR shows pulmonary edema pt to have oral lasix BID. Echo completed see full report. (7) Epigastric pain: Code(s): R10.13 - Epigastric pain Status: Resolved Assessment and Plan: Pt seen by GI sp egd showing gastritis Additional Plan The patient has pulmonary embolism secondary to right lower extremity DVT. The patient's DVTs likely the result of her immobility and the recent discontinuation of her chronic anticoagulation due to GI blood losses. Patient is currently on a heparin drip. If the patient's hemoglobin drops further on heparin drip patient may need consider IVC filter placement. Patient does have new acute hypoxic respiratory failure likely secondary to a pulmonary embolism. CT does demonstrate evidence of pulmonary hypertension. I could not find documentation of patient having prior pulmonary hypertension so she may have some right heart strain. Echocardiogram has been ordered for further evaluation. CT of the chest demonstrates possible pneumonia however I suspect the knees are more consistent with pulmonary edema/CHF due to right heart strain. Subjective Date/time seen: 02/20/21 11:54 Interval history: Elderly lady looks weak and unwell, currently on 2 liters of oxygen. Still has mild cough Review of Systems Review of Systems: All systems reviewed & are unremarkable except as noted in HPI and below Exam Narrative: Exam Narrative: General: Elderly, tired unwell Respiratory: Clear to auscultation bilaterally Cardiovascular: Regular rate, regular rhythm, 2+ bilateral radial pedal pulses Gastrointestinal: Nondistended, tender in epigastric region, positive bowel sounds, soft Skin: Generalized pallor, non jaundice Musculoskeletal: 1+ pitting edema left lower extremity 2 to 3+ pitting edema right lower extremity Neurological: Alert and oriented x3, speech is clear, moving all 4 limbs Psychiatric: Her flat affect, depressed, cooperative Objective Data Vital Signs Vital Signs: Vital Signs - 24 hr 02/19/21 12:00 02/19/21 14:00 02/19/21 16:00 Temperature 36.1 C L Pulse Rate 61 60 62 Respiratory Rate 20 Blood Pres
--- NOTE | 2021-02-20 12:04 | PC.NURSE ---
On 02/20/21, the student, [ Munira Anguiano], provided care and completed [facility] documentation on this patient. I have reviewed the student's documentation and agree with the findings.
[2021-02-20] MEDS: MORPHINE SULFATE (*CRX) 2 MG/ML INJ 1 MG IV PUSH ×2 (14:43→18:32)
--- NOTE | 2021-02-20 15:56 | WPDGIPROGNO ---
Progress Note: A&P Assessment and Plan (1) Nausea and vomiting: Code(s): R11.2 - Nausea with vomiting, unspecified Status: Acute Assessment and Plan: no changes, still poor appetite epigastric pain probably from ongoing pulmonary/cardiac event, recent EGD only gastritis ok to advance diet (2) Epigastric pain: Code(s): R10.13 - Epigastric pain Status: Resolved Assessment and Plan: abdominal exam benign, CT scan reviewed and recent egd only gastritis with small hiatal hernia (3) Chronic anemia: Code(s): D64.9 - Anemia, unspecified Status: Acute Assessment and Plan: work up with colonoscopy last year, EGD x2- last time APC of petechia but no active bleeding. she also is seeing hematology because of anemia stable hb and not overt GIB, INR elevated and holding coumadin (recently started because PE/DVT with hb still stable)- will follow from afar, call if questions (4) Pulmonary embolism: Qualifiers: Pulmonary embolism type: multiple subsegmental (without acute cor pulmonale) Qualified Code(s): I26.94 - Multiple subsegmental pulmonary emboli without acute cor pulmonale Code(s): I26.99 - Other pulmonary embolism without acute cor pulmonale Status: Acute Assessment and Plan: new diagnosis, now on coumadin stable hb (5) Acute deep vein thrombosis (DVT) of right lower extremity: Qualifiers: Affected thrombotic vein of extremity: femoral Qualified Code(s): I82.411 - Acute embolism and thrombosis of right femoral vein Code(s): I82.401 - Acute embolism and thrombosis of unspecified deep veins of right lower extremity Status: Acute (6) Acute respiratory failure with hypoxia: Code(s): J96.01 - Acute respiratory failure with hypoxia Status: Acute (7) Pneumonia: Qualifiers: Laterality: bilateral Lung location: unspecified part of lung Pneumonia type: due to unspecified organism Qualified Code(s): J18.9 - Pneumonia, unspecified organism Code(s): J18.9 - Pneumonia, unspecified organism Status: Resolved Assessment and Plan: on antibiotics Subjective Date/time seen: 02/20/21 15:56 Interval history: no major changes, today also back pain Review of Systems Review of Systems: All systems reviewed & are unremarkable except as noted in HPI and below Exam Const: General: comfortable and ill appearing chronically Other: tired HENMT: General nose exam: Normal nares present Eyes: General: appearance normal, both eyes and all related structures Neck: Neck: supple Resp: Auscultation: clear to auscultation bilaterally and diminished lung sounds Cardio: Rate: regular rate GI: Inspection: non-distended GI Palp: Yes Soft to palpation, No Firmness to palpation present (GI), No Tenderness to palpation present (GI) and No Guarding due to palpation present (GI) Auscultation: normal bowel sounds Skin: General skin exam: normal color Neuro: Speech: normal speech Extrem: General: normal to inspection Psych: Mental Status: mental status grossly normal Objective Data Vital Signs Vital Signs: Vital Signs - 24 hr 02/19/21 16:00 02/19/21 20:00 02/19/21 20:12 Temperature 96.8 F L Pulse Rate 62 60 61 Respiratory Rate 18 Blood Pressure 146/63 H Pulse Oximetry 95 02/20/21 00:00 02/20/21 04:00 02/20/21 05:20 Temperature 97.1 F L 97.6 F Pulse Rate 64 64 66 Respiratory Rate 22 H 20 Blood Pressure 154/69 H 132/65 Pulse Oximetry 93 98 02/20/21 08:00 02/20/21 12:00 02/20/21 14:00 Temperature 97.2 F L 97.6 F Pulse Rate 65 67 62 Respiratory Rate 18 16 Blood Pressure 136/64 177/64 H Pulse Oximetry 96 96 Intake/Output Intake/Output: Intake & Output 02/17/21 02/18/21 02/19/21 02/20/21 23:59 23:59 23:59 23:59 Intake Total 1215 753 2871 590 Output Total 200 Balance 1532 695 8370 590 Meds/Results Medications: Active Medications Gene
[2021-02-21] VITALS (8 sets, daily range): BP systolic 125–163; BP diastolic 63–70; PULSE 57–63; RESP 16–20; TEMP 36.1–36.5; O2SAT 93–99
[2021-02-21] MEDS: MORPHINE SULFATE (*CRX) 2 MG/ML INJ 1 MG IV PUSH (02:33)
[2021-02-21] MEDS: ACETAMINOPHEN 500 MG TABLET 1000 MG PO ×2 (04:20→16:14)
[2021-02-21 05:43] LABS: Prothrombin Time 54.5 Seconds (11.1-14.7)
[2021-02-21 05:54] LABS: INR 6.1
[2021-02-21] MEDS: METOCLOPRAMIDE HCL INJ 10 MG/2 ML VIAL IV PUSH ×3 (06:10→18:21)
[2021-02-21] MEDS: SUCRALFATE SUSP 100 MG/ML 10 ML UDC 1000 MG PO ×4 (06:11→20:40)
[2021-02-21] MEDS: POTASSIUM CHLORIDE 20 MEQ PACKET (FOR LIQUID) 40 MEQ PO ×2 (08:07→16:14)
[2021-02-21] MEDS: MIDODRINE HCL 10 MG TABLET PO ×3 (08:07→16:14)
[2021-02-21] MEDS: PANTOPRAZOLE 40 MG TABLET PO (08:07)
[2021-02-21] MEDS: FUROSEMIDE 40 MG TABLET PO (08:07)
--- NOTE | 2021-02-21 11:29 | PCNFU ---
Nutrition Follow-Up Complete: Inadequate oral intake related to poor appetite as evidenced by patient statements, documented 36 pound weight loss x 1 year without trying. Goal: Patient to meet estimated nutritional needs. Limited progress towards goal. We will continue current goal. Pt current nutrition is Soft/Bite Sized, Level 6 with Frozen Nutritional Treat BID. Last recorded weight is 76.2 kg, up from 76 kg on admit. Bowel Motility:+BM reported 5/5 Labs Reviewed:5/5 labs Cr 0.6,Hct 29.6,Hgb 9.4,Na 135 Meds Noted:Carafate,Lasix,Reglan,Zosyn,Protonix,KCL Additional Notes: Nutrition follow up. Patient continues to have poor po intake. Spoke with NAIL TECHNICIAN today-breafast tray 25%. Patient continues to work with therapy with strong verbal cues. EGD showed gastritis. Patient is a DNR. PO intake encouraged. Monitoring: Follow up in 5 days.
--- NOTE | 2021-02-21 12:34 | PM.IMPN ---
Progress Note: A&P Assessment and Plan (1) Pulmonary embolism: Qualifiers: Pulmonary embolism type: multiple subsegmental (without acute cor pulmonale) Qualified Code(s): I26.94 - Multiple subsegmental pulmonary emboli without acute cor pulmonale Code(s): I26.99 - Other pulmonary embolism without acute cor pulmonale Status: Acute Assessment and Plan: Pt is on Coumadin INR is high today hold todays dose. give pt vit k as inr continues to raise. (2) Acute deep vein thrombosis (DVT) of right lower extremity: Qualifiers: Affected thrombotic vein of extremity: femoral Qualified Code(s): I82.411 - Acute embolism and thrombosis of right femoral vein Code(s): I82.401 - Acute embolism and thrombosis of unspecified deep veins of right lower extremity Status: Acute Assessment and Plan: Transition to Coumadin (3) Acute respiratory failure with hypoxia: Code(s): J96.01 - Acute respiratory failure with hypoxia Status: Acute Assessment and Plan: LIKELY SECONDARY TO PULMONARY EMBOLISM AND PNEUMONIA Continue to oxygenate (4) Pneumonia: Qualifiers: Laterality: bilateral Lung location: unspecified part of lung Pneumonia type: due to unspecified organism Qualified Code(s): J18.9 - Pneumonia, unspecified organism Code(s): J18.9 - Pneumonia, unspecified organism Status: Resolved Assessment and Plan: WCC is NL, BC negative to date, stop iv antibiotics. change to oral abx (5) Elevated troponin: Code(s): R77.8 - Other specified abnormalities of plasma proteins Status: Acute Assessment and Plan: LIKELY TO BE A TROPONIN LEAK SECONDARY TO PULMONARY EMBOLISM Unlikely ischemic related. (6) Pulmonary edema: Code(s): J81.1 - Chronic pulmonary edema Status: Acute Assessment and Plan: CXR shows pulmonary edema pt to have oral lasix BID. Echo completed see full report. (7) Epigastric pain: Code(s): R10.13 - Epigastric pain Status: Resolved Assessment and Plan: Pt seen by GI sp egd showing gastritis Additional Plan Subjective Date/time seen: 02/21/21 12:34 Interval history: Elderly lady looks weak and unwell, currently on 2 liters of oxygen. Still has mild cough, does not move much due to weakness in both her legs Review of Systems Review of Systems: All systems reviewed & are unremarkable except as noted in HPI and below Exam Narrative: Exam Narrative: General: Elderly, tired unwell Respiratory: Clear to auscultation bilaterally Cardiovascular: Regular rate, regular rhythm, 2+ bilateral radial pedal pulses Gastrointestinal: Nondistended, tender in epigastric region, positive bowel sounds, soft Skin: Generalized pallor, non jaundice Musculoskeletal: 1+ pitting edema left lower extremity 2 to 3+ pitting edema right lower extremity Neurological: Alert and oriented x3, speech is clear, moving all 4 limbs Psychiatric: Her flat affect, depressed, cooperative Objective Data Vital Signs Vital Signs: Vital Signs - 24 hr 02/20/21 14:00 02/20/21 16:00 02/20/21 20:00 Temperature 36.4 C Pulse Rate 62 60 60 Respiratory Rate 16 Blood Pressure 177/64 H Pulse Oximetry 96 02/20/21 21:09 02/21/21 00:00 02/21/21 04:00 Temperature 36.5 C 36.4 C L Pulse Rate 60 60 61 Respiratory Rate 18 20 Blood Pressure 139/67 125/65 Pulse Oximetry 96 95 02/21/21 05:30 02/21/21 08:00 02/21/21 11:51 Temperature 36.5 C Pulse Rate 63 60 Respiratory Rate 18 Blood Pressure 146/63 H Pulse Oximetry 94 93 Intake/Output Intake/Output: Intake & Output 02/18/21 02/19/21 02/20/21 02/21/21 23:59 23:59 23:59 23:59 Intake Total 900 1320 850 440 Output Total 200 Balance 700 1320 850 440 Meds/Results Medications: Active Medications Generic Name Dose Route Start Last Admin Trade Name Freq PRN Reason Stop Dose Admin Acetaminophen
[2021-02-21] MEDS: PHYTONADIONE 5 MG TABLET PO (14:29)
[2021-02-21 15:10] LABS: Prothrombin Time 52.9 Seconds (11.1-14.7)
[2021-02-21 15:19] LABS: INR 5.9
[2021-02-22] VITALS (14 sets, daily range): BP systolic 128–163; BP diastolic 64–71; PULSE 56–90; RESP 16–22; TEMP 36.4–36.6; O2SAT 85–99
[2021-02-22] MEDS: MORPHINE SULFATE (*CRX) 2 MG/ML INJ 1 MG IV PUSH ×4 (00:05→18:18)
[2021-02-22] MEDS: METOCLOPRAMIDE HCL INJ 10 MG/2 ML VIAL IV PUSH ×5 (00:06→23:35)
[2021-02-22] MEDS: SUCRALFATE SUSP 100 MG/ML 10 ML UDC 1000 MG PO ×3 (05:29→20:41)
[2021-02-22 05:51] LABS: INR 2.9; Prothrombin Time 30.9 Seconds (11.1-14.7)
[2021-02-22] MEDS: POTASSIUM CHLORIDE 20 MEQ PACKET (FOR LIQUID) 40 MEQ PO ×2 (10:09→17:35)
[2021-02-22] MEDS: PANTOPRAZOLE 40 MG TABLET PO (10:09)
[2021-02-22] MEDS: FUROSEMIDE 40 MG TABLET PO (10:09)
[2021-02-22] MEDS: MIDODRINE HCL 10 MG TABLET PO ×3 (10:09→17:35)
--- NOTE | 2021-02-22 12:00 | PM.IMPN ---
Progress Note: A&P Assessment and Plan (1) Pulmonary embolism: Qualifiers: Pulmonary embolism type: multiple subsegmental (without acute cor pulmonale) Qualified Code(s): I26.94 - Multiple subsegmental pulmonary emboli without acute cor pulmonale Code(s): I26.99 - Other pulmonary embolism without acute cor pulmonale Status: Acute Assessment and Plan: Pt is on Coumadin, INR stabilized today. (2) Acute deep vein thrombosis (DVT) of right lower extremity: Qualifiers: Affected thrombotic vein of extremity: femoral Qualified Code(s): I82.411 - Acute embolism and thrombosis of right femoral vein Code(s): I82.401 - Acute embolism and thrombosis of unspecified deep veins of right lower extremity Status: Acute Assessment and Plan: Transition to Coumadin (3) Acute respiratory failure with hypoxia: Code(s): J96.01 - Acute respiratory failure with hypoxia Status: Acute Assessment and Plan: LIKELY SECONDARY TO PULMONARY EMBOLISM AND PNEUMONIA Continue to oxygenate add breathing treatments (4) Pneumonia: Qualifiers: Laterality: bilateral Lung location: unspecified part of lung Pneumonia type: due to unspecified organism Qualified Code(s): J18.9 - Pneumonia, unspecified organism Code(s): J18.9 - Pneumonia, unspecified organism Status: Resolved Assessment and Plan: WCC is NL, BC negative to date, stop iv antibiotics. change to oral abx (5) Elevated troponin: Code(s): R77.8 - Other specified abnormalities of plasma proteins Status: Acute Assessment and Plan: LIKELY TO BE A TROPONIN LEAK SECONDARY TO PULMONARY EMBOLISM Unlikely ischemic related. (6) Pulmonary edema: Code(s): J81.1 - Chronic pulmonary edema Status: Acute Assessment and Plan: CXR shows pulmonary edema pt to have oral lasix BID. Echo completed see full report. RPT CXR ricco AM (7) Epigastric pain: Code(s): R10.13 - Epigastric pain Status: Resolved Assessment and Plan: Pt seen by GI sp egd showing gastritis, increase GERD medications Additional Plan Subjective Date/time seen: 02/22/21 12:00 Interval history: Elderly lady looks weak and unwell, currently on 2 liters of oxygen. Still has mild cough, does not move much due to weakness in both her legs. Pt states she has some pain in the abdomen epigastric area. Pt had EGD and CTA on admission Review of Systems Review of Systems: All systems reviewed & are unremarkable except as noted in HPI and below Exam Narrative: Exam Narrative: General: Elderly, tired unwell Respiratory: Clear to auscultation bilaterally Cardiovascular: Regular rate, regular rhythm, 2+ bilateral radial pedal pulses Gastrointestinal: Nondistended, tender in epigastric region, positive bowel sounds, soft Skin: Generalized pallor, non jaundice Musculoskeletal: Trace edema Neurological: Alert and oriented x3, speech is clear, moving all 4 limbs Psychiatric: Her flat affect, depressed, cooperative Objective Data Vital Signs Vital Signs: Vital Signs - 24 hr 02/21/21 14:00 02/21/21 20:00 02/21/21 20:21 Temperature 36.4 C L 36.1 C L Pulse Rate 61 61 57 L Respiratory Rate 18 18 16 Blood Pressure 148/65 H 163/70 H Pulse Oximetry 97 97 99 Pulse Oximetry [With Activity During Therapy Session] 02/22/21 00:00 02/22/21 05:15 02/22/21 07:35 Temperature 36.6 C 36.4 C Pulse Rate 90 56 L Respiratory Rate 20 22 H Blood Pressure 160/64 H 128/65 Pulse Oximetry 96 92 95 Pulse Oximetry [With Activity During Therapy Session] 02/22/21 09:00 02/22/21 09:07 02/22/21 10:00 Temperature Pulse Rate Respiratory Rate Blood Pressure Pulse Oximetry 85 L 95 Pulse Oximetry [With Activity During Therapy Session] 93 Intake/Output Intake/Output: Intake & Output 02/19/21 02/20/21 02/21/21 02/22/21 23:59 23:59 23:59 23:59 Intake
--- NOTE | 2021-02-22 14:15 | PC.NURSE ---
Patient c/o lower abdominal pain and pressure. States she has been incontinent of small amounts of urine and it hurts to pee . Feels like she is not emptying her bladder adequately. Bladder scanned patient and noted 600-700 cc urine in bladder on scanner. Called Dr. Marinelli and notified her of same. Orders received to initiate champion catheter.
[2021-02-22 15:06] LABS: Add Urine Microscopic? NO; Appearance Urine Clear (Clear); Bilirubin Urine Negative (Negative); Blood Urine Negative (Negative); Color Urine Straw (Yellow); Glucose Urine UA Negative (Negative); Ketones Urine Negative (Negative); Leukocyte Esterase Ur Negative LEU/UL (Negative); Nitrate Urine Negative (Negative); Protein Urine Negative (Negative); Specific Grav Ur 1.009 (1.001-1.035); Urobilinogen Urine Negative mg/dL (<2.0)
--- NOTE | 2021-02-22 16:01 | HOMEO2EVAL ---
Evaluation was performed at [facility] Home Oxygen Evaluation RC: Home Oxygen (O2) Evaluation Start: 02/22/21 12:06 Freq: ONCE Status: Active Protocol: RPE Activity Type Activity Date Activity User E-Sign Co-Sign Detail Recorded Client Recorded Date Recorded By Document 02/22/21 15:30 SANIA [email or web address] 02/22/21 16:01 SANIA Document 02/22/21 15:32 SANIA [email or web address] 02/22/21 16:01 SANIA Document 02/22/21 15:34 SANIA [email or web address] 02/22/21 16:01 SANIA Document 02/22/21 15:40 SANIA [email or web address] 02/22/21 16:01 SANIA Document 02/22/21 15:45 SANIA [email or web address] 02/22/21 16:01 SANIA 02/22/21 02/22/21 02/22/21 15:30 15:32 15:34 Home O2 Evaluation Test Phase Resting Resting Resting Oxygen Delivery Room Air Nasal Cannula Nasal Cannula Oxygen Flow Rate (L/min) 1 2 Pulse Oximetry (90-100 %) 87 L 87 L 92 Home Oxygen Evaluation Comments Treatment Charges O2 Evaluation - Inpatient 02/22/21 02/22/21 15:40 15:45 Home O2 Evaluation Test Phase Exercise Resting Oxygen Delivery Nasal Cannula Nasal Cannula Oxygen Flow Rate (L/min) 2 2 Pulse Oximetry (90-100 %) 93 92 Home Oxygen Evaluation Comments Pt weak, leg Pt requires 2 L and arm at rest and exercises with exertion Treatment Charges
--- NOTE | 2021-02-22 16:17 | PCRCNOTE ---
Home O2 eval done, Set up with [facility], tank is in room. If Pt discharges over weekend, Call [phone] ([facility]) or [phone]([facility]) they will come out to pt. home to set up. RN notified.
--- NOTE | 2021-02-22 16:34 | PC.NURSE ---
Patient reports feeling much better since catheter placed.
[2021-02-23] MEDS: ACETAMINOPHEN 500 MG TABLET 1000 MG PO ×2 (00:20→21:20)
[2021-02-23 05:40] LABS: Anion Gap 1 mmol/L (8-16); Blood Urea Nitrogen 12 mg/dL (7-17); Calcium 8.7 mg/dL (8.4-10.2); Carbon Dioxide 32 mmol/L (22-30); Chloride 103 mmol/L (98-107); Estimated CRCL calculation 43 ml/min; Estimated Glomerular Filt Rate 60; Glucose 78 mg/dL (65-105); Potassium 4.1 mmol/L (3.4-5.0); Sodium 136 mmol/L (137-145)
[2021-02-23 05:50] VITALS: BP 142/62; PULSE 61; RESP 16; TEMP 36.4; O2SAT 98
[2021-02-23 05:50] LABS: Hematocrit 28.6 % (37.0-47.0); Hemoglobin 9.3 g/dL (12.0-15.0); Mean Corpuscular HGB Conc 32.5 g/dl (32-36); Mean Corpuscular Hemoglobin 29.2 pg (26-34); Mean Corpuscular Volume 89.9 fl (80-100); Mean Platelet Volume 10.5 fl (7.4-10.4); Platelet Count Result 502 k/mm3 (150-375); Red Blood Count 3.18 M/mm3 (4.2-5.4); Red Cell Distribution Width 23.5 % (11.5-14.5); White Blood Count 6.8 K/mm3 (4.5-10.0)
[2021-02-23 05:55] LABS: INR 2.4; Prothrombin Time 26.9 Seconds (11.1-14.7)
[2021-02-23] MEDS: SUCRALFATE SUSP 100 MG/ML 10 ML UDC 1000 MG PO ×4 (06:06→20:04)
[2021-02-23] MEDS: METOCLOPRAMIDE HCL INJ 10 MG/2 ML VIAL IV PUSH ×4 (06:06→23:29)
[2021-02-23 10:00] VITALS: O2SAT 97
[2021-02-23] MEDS: POTASSIUM CHLORIDE 20 MEQ PACKET (FOR LIQUID) 40 MEQ PO ×2 (10:36→17:45)
[2021-02-23] MEDS: FUROSEMIDE 40 MG TABLET PO (10:37)
[2021-02-23] MEDS: MIDODRINE HCL 10 MG TABLET PO ×3 (10:37→17:46)
[2021-02-23] MEDS: PANTOPRAZOLE 40 MG TABLET PO (10:37)
[2021-02-23] MEDS: MAGNESIUM HYDROXIDE SUSP 30 ML UDC PO (10:41)
[2021-02-23] MEDS: MORPHINE SULFATE (*CRX) 2 MG/ML INJ 1 MG IV PUSH (10:42)
[2021-02-23 11:51] VITALS: O2SAT 97
--- NOTE | 2021-02-23 12:18 | PM.IMPN ---
Progress Note: A&P Assessment and Plan (1) Pulmonary embolism: Qualifiers: Pulmonary embolism type: multiple subsegmental (without acute cor pulmonale) Qualified Code(s): I26.94 - Multiple subsegmental pulmonary emboli without acute cor pulmonale Code(s): I26.99 - Other pulmonary embolism without acute cor pulmonale Status: Acute Assessment and Plan: Pt is on Coumadin, INR stabilized today. (2) Acute deep vein thrombosis (DVT) of right lower extremity: Qualifiers: Affected thrombotic vein of extremity: femoral Qualified Code(s): I82.411 - Acute embolism and thrombosis of right femoral vein Code(s): I82.401 - Acute embolism and thrombosis of unspecified deep veins of right lower extremity Status: Acute Assessment and Plan: Transition to Coumadin (3) Acute respiratory failure with hypoxia: Code(s): J96.01 - Acute respiratory failure with hypoxia Status: Acute Assessment and Plan: LIKELY SECONDARY TO PULMONARY EMBOLISM AND PNEUMONIA Continue to oxygenate add breathing treatments (4) Pneumonia: Qualifiers: Laterality: bilateral Lung location: unspecified part of lung Pneumonia type: due to unspecified organism Qualified Code(s): J18.9 - Pneumonia, unspecified organism Code(s): J18.9 - Pneumonia, unspecified organism Status: Resolved Assessment and Plan: WCC is NL, BC negative to date, stop iv antibiotics. change to oral abx (5) Elevated troponin: Code(s): R77.8 - Other specified abnormalities of plasma proteins Status: Acute Assessment and Plan: LIKELY TO BE A TROPONIN LEAK SECONDARY TO PULMONARY EMBOLISM Unlikely ischemic related. (6) Pulmonary edema: Code(s): J81.1 - Chronic pulmonary edema Status: Acute Assessment and Plan: CXR shows pulmonary edema pt to have oral lasix BID. Echo completed see full report. RPT CXR ricco AM (7) Epigastric pain: Code(s): R10.13 - Epigastric pain Status: Resolved Assessment and Plan: Pt seen by GI sp egd showing gastritis, increase GERD medications Additional Plan Plan to discharge tomorrow. Subjective Date/time seen: 02/23/21 12:18 Interval history: Elderly lady looks weak and unwell, currently on 2 liters of oxygen. Still has mild cough, does not move much due to weakness in both her legs. Pt states she has some pain in the abdomen epigastric area. Pt had EGD and CTA on admission. Pt had Martin catheter passed yesterday feels better some complaints of mild abdominal pains Review of Systems Review of Systems: All systems reviewed & are unremarkable except as noted in HPI and below Exam Narrative: Exam Narrative: General: Elderly, tired unwell Respiratory: Clear to auscultation bilaterally Cardiovascular: Regular rate, regular rhythm, 2+ bilateral radial pedal pulses Gastrointestinal: Nondistended, tender in epigastric region, positive bowel sounds, soft Skin: Generalized pallor, non jaundice Musculoskeletal: Trace edema Neurological: Alert and oriented x3, speech is clear, moving all 4 limbs Psychiatric: Her flat affect, depressed, cooperative Objective Data Vital Signs Vital Signs: Vital Signs - 24 hr 02/22/21 14:00 02/22/21 15:30 02/22/21 15:32 Temperature 36.6 C Pulse Rate 68 Respiratory Rate 20 Blood Pressure 137/71 Pulse Oximetry 95 87 L 87 L 02/22/21 15:34 02/22/21 15:40 02/22/21 15:45 Temperature Pulse Rate Respiratory Rate Blood Pressure Pulse Oximetry 92 93 92 02/22/21 20:00 02/22/21 21:43 02/23/21 05:50 Temperature 36.4 C 36.4 C Pulse Rate 60 61 Respiratory Rate 16 16 Blood Pressure 163/70 H 142/62 H Pulse Oximetry 92 99 98 02/23/21 11:51 Temperature Pulse Rate Respiratory Rate Blood Pressure Pulse Oximetry 97 Intake/Output Intake/Output: Intake & Output 02/20/21 02/21/21 02/22/21 02/23/21 23:59 23:59
[2021-02-23 14:00] VITALS: BP 151/68; PULSE 60; RESP 20; TEMP 36.6; O2SAT 99
[2021-02-23] MEDS: AZITHROMYCIN 250 MG TABLET 500 MG PO (14:14)
[2021-02-23] MEDS: WARFARIN (*PBKC) 3 MG TABLET PO (17:46)
--- NOTE | 2021-02-23 18:31 | WPDURCON ---
Assessment and Plan Assessment and plan (1) Urinary retention with incomplete bladder emptying: Code(s): R33.9 - Retention of urine, unspecified Status: Acute Assessment and Plan: Urinary retention likely resulting from an underlying hypotonic bladder. Will start Flomax. If she is ready for discharge soon she should go home with an indwelling catheter in follow-up for outpatient urodynamics in our office. Explained this to the patient and she was comfortable with a catheter in place at the time of discharge. Urology Consult Note HPI Date Seen: 02/23/21 Requesting Physician: Juan Alberto Lantigua MD Primary Care Provider: Carol Damon MD Consult Narrative Narrative: Maryanne Chapman is a 80 year old female who was previously a known to our practice. His extensive comorbidities is outlined elsewhere. Surprisingly, she has no prior significant urological history, denying recurring urinary tract infection hematuria or urolithiasis. She does report over the past several weeks it has a sense of a slow urinary stream and incomplete emptying. Subsequent to this admission for DVT and PE she developed a symptomatic urinary retention. She was quite uncomfortable with a bladder volume of 700 cc. She experienced significant relief with catheterization couple days ago. Review of Systems Cardiovascular: Cardiovascular: Denies chest pain, Denies lightheadedness, Denies palpitations and Denies dyspnea Respiratory: Respiratory: Denies dyspnea Gastrointestinal: Gastrointestinal: Denies diarrhea, Denies nausea and Denies vomiting Genitourinary: Genitourinary: Denies hematuria and Denies dysuria Endocrine: Endocrine: Denies palpitations PMFSH Past Medical History Medical History Arthritis Atrial fibrillation Brain tumor Chronic anemia CKD (chronic kidney disease), stage III Constipation Distal radius fracture, right Dizziness Epigastric pain Gastritis Insomnia Macrocytic anemia Orthostatic hypotension Osteoporosis Pacemaker Original pacemaker implant [place] [address] Mckenzie at [facility], [facility]'s device. 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 She lifelong nonsmoker. Denies alcohol or drug use. She has 2 children 1 of whom has of cancer. She is . She nominated her son to be the individual who would make medical decisions for her if she is unable. She is a full code. Smoking status: Never smoker Second hand tobacco smoke exposure: No Alcohol intake: never Substance use: never Substance use type: does not use Gender identity (if verbalized by the patient): Female Spiritual care concerns: No Meds Home Medications and Allergies Home Medications Medication Instructions Recorded Confirmed Type acetaminophen 500 mg capsule 1,000 mg PO Q12H PRN 04/06/20 02/14/21 History midodrine 2.5 mg tablet 10 mg PO TID tablet 09/10/20 02/14/21 History linaclotide 145 mcg capsule 145 mcg PO DAILY #90 cap 11/16/20 02/14/21 Rx ferrous sulfate [I
[2021-02-23 19:37] VITALS: O2SAT 96
[2021-02-23 22:00] VITALS: BP 155/64; PULSE 62; RESP 21; TEMP 36.4; O2SAT 100
[2021-02-24] MEDS: METOCLOPRAMIDE HCL INJ 10 MG/2 ML VIAL IV PUSH ×2 (05:19→12:37)
[2021-02-24] MEDS: SUCRALFATE SUSP 100 MG/ML 10 ML UDC 1000 MG PO ×2 (05:38→16:36)
[2021-02-24 06:00] VITALS: BP 149/64; PULSE 60; RESP 21; TEMP 36.2; O2SAT 100
[2021-02-24 06:19] LABS: Hematocrit 29.7 % (37.0-47.0); Hemoglobin 9.5 g/dL (12.0-15.0); Mean Corpuscular Volume 90.5 fl (80-100); Mean Platelet Volume 10.3 fl (7.4-10.4); Platelet Count Result 526 k/mm3 (150-375); Red Blood Count 3.28 M/mm3 (4.2-5.4); Red Cell Distribution Width 23.8 % (11.5-14.5); White Blood Count 6.2 K/mm3 (4.5-10.0)
[2021-02-24 06:37] LABS: Anion Gap 2 mmol/L (8-16); Blood Urea Nitrogen 12 mg/dL (7-17); Carbon Dioxide 30 mmol/L (22-30); Chloride 105 mmol/L (98-107); Estimated CRCL calculation 43 ml/min; Estimated Glomerular Filt Rate 60; Glucose 79 mg/dL (65-105); INR 2.5; Potassium 4.3 mmol/L (3.4-5.0); Prothrombin Time 27.4 Seconds (11.1-14.7); Sodium 137 mmol/L (137-145)
[2021-02-24 08:00] VITALS: O2SAT 100
[2021-02-24] MEDS: AZITHROMYCIN 250 MG TABLET 500 MG PO (09:47)
[2021-02-24] MEDS: POTASSIUM CHLORIDE 20 MEQ PACKET (FOR LIQUID) 40 MEQ PO ×2 (09:48→16:38)
[2021-02-24] MEDS: TAMSULOSIN HCL 0.4 MG CAPSULE PO (09:48)
[2021-02-24] MEDS: MIDODRINE HCL 10 MG TABLET PO ×3 (09:48→16:37)
[2021-02-24] MEDS: PANTOPRAZOLE 40 MG TABLET PO (09:48)
[2021-02-24] MEDS: FUROSEMIDE 40 MG TABLET PO (09:48)
[2021-02-24] MEDS: MORPHINE SULFATE (*CRX) 2 MG/ML INJ 1 MG IV PUSH (10:19)
--- NOTE | 2021-02-24 11:34 | WPDUROPN2 ---
Progress Note: A&P Assessment and Plan (1) Urinary retention with incomplete bladder emptying: Code(s): R33.9 - Retention of urine, unspecified Status: Acute Assessment and Plan: Urinary retention likely resulting from an underlying hypotonic bladder. Will start Flomax. If she is ready for discharge soon she should go home with an indwelling catheter in follow-up for outpatient urodynamics in our office. Explained this to the patient and she was comfortable with a catheter in place at the time of discharge. 02/24/2021 Nothing new from our standpoint. If she remains inpatient another 1-2 days we may consider a voiding trial tamsulosin. Otherwise she can be discharged with an indwelling catheter with plans to follow-up in 5-10 days. Subjective Subjective Date/Time Seen: 02/24/21 11:34 Tolerating catheter Review of Systems Cardiovascular: Cardiovascular: Denies chest pain, Denies lightheadedness, Denies palpitations and Denies dyspnea Respiratory: Respiratory: Denies dyspnea Gastrointestinal: Gastrointestinal: Denies diarrhea, Denies nausea and Denies vomiting Genitourinary: Genitourinary: Denies hematuria and Denies dysuria Endocrine: Endocrine: Denies palpitations Exam Const: General: no acute distress Resp: Effort & Inspection: normal respiratory effort GI: Inspection: non-distended GI Palp: No abdominal tenderness and No Guarding due to palpation present (GI) Auscultation: normal bowel sounds Urinary Catheter: Urinary Catheter: patent and draining and urine clear Objective Data Vital Signs Vital Signs: Vital Signs - 24 hr 02/23/21 11:51 02/23/21 14:00 02/23/21 19:37 Temperature 97.8 F Pulse Rate 60 Respiratory Rate 20 Blood Pressure 151/68 H Pulse Oximetry 97 99 96 02/23/21 22:00 02/24/21 06:00 Temperature 97.5 F L 97.1 F L Pulse Rate 62 60 Respiratory Rate 21 H 21 H Blood Pressure 155/64 H 149/64 H Pulse Oximetry 100 100 Intake/Output Intake/Output: Intake & Output 02/21/21 02/22/21 02/23/21 02/24/21 23:59 23:59 23:59 23:59 Intake Total 970 590 740 140 Output Total 751 2745 300 Balance 970 -161 -535 -160 Meds/Results Medications: Active Medications Generic Name Dose Route Start Last Admin Trade Name Freq PRN Reason Stop Dose Admin Acetaminophen 1,000 mg 02/14/21 21:05 02/23/21 21:20 Acetaminophen 500 Mg Tablet PO 1,000 mg Q12H PRN Administration Pain Rated 1-3 Albuterol 2.5 mg 02/22/21 12:05 Albuterol Sulfate Neb 2.5 Mg/0.5 Ml Inh INHALATION Q6HRT PRN Shortness Of Breath Azithromycin 500 mg 02/23/21 12:30 02/24/21 09:47 Azithromycin 250 Mg Tablet PO 500 mg DAILY JONY Administration Furosemide 40 mg 02/20/21 09:00 02/24/21 09:48 Furosemide 40 Mg Tablet PO 40 mg DAILY JONY Administration Magnesium Hydroxide 30 ml 02/23/21 09:00 02/24/21 09:48 Magnesium Hydroxide Susp 30 Ml Udc PO Not Given QAM JONY Metoclopramide HCl 10 mg 02/17/21 12:00 02/24/21 05:19 Metoclopramide Hcl Inj 10 Mg/2 Ml Vial IV PUSH 10 mg Q6HR JONY Administration Miconazole Nitrate 1 applic 02/22/21 21:00 02/24/21 09:48 Miconazole 2% Antifungal Ointment 56 Gm TOPICAL 1 applic Q12HR JONY Administration Midodrine 10 mg 02/15/21 09:00 02/24/21 09:48 Midodrine Hcl 10 Mg Tablet PO 10 mg TID JONY Administration Morphine Sulfate 1 mg 02/16/21 09:39 02/24/21 10:19 Morphine Sulfate (*Crx) 2 Mg/Ml Inj IV PUSH 1 mg Q4H PRN Administration Pain Rated 7-10 Ondansetron HCl 4 mg 02/14/21 14:33 02/17/21 11:25 Ondansetron Inj 4 Mg/2 Ml Vial IV PUSH 4 mg Q4H PRN Administration Nausea Pantoprazole Sodium 40 mg 02/15/21 09:00 02/24/21 09:48 Pantoprazole 40 Mg Tablet PO 40 mg QAM JONY Administration Potassium Chloride 40 meq 02/19/21 09:00 02/24/21 09:48 Potassium Chloride 20 Meq Packet (For Liquid) PO 40 meq BID JONY Administration Sucralf
--- NOTE | 2021-02-24 13:59 | PM.DS ---
DS: Admitting Diagnosis Admitting Diagnosis Admitting Diagnosis: Shortness of breath DS: Discharge Diagnosis Discharge Diagnosis (1) Pulmonary embolism: Qualifiers: Pulmonary embolism type: multiple subsegmental (without acute cor pulmonale) Qualified Code(s): I26.94 - Multiple subsegmental pulmonary emboli without acute cor pulmonale Code(s): I26.99 - Other pulmonary embolism without acute cor pulmonale Status: Acute Assessment and Plan: Pt is on Coumadin, INR stabilized today. (2) Acute deep vein thrombosis (DVT) of right lower extremity: Qualifiers: Affected thrombotic vein of extremity: femoral Qualified Code(s): I82.411 - Acute embolism and thrombosis of right femoral vein Code(s): I82.401 - Acute embolism and thrombosis of unspecified deep veins of right lower extremity Status: Acute Assessment and Plan: Transition to Coumadin (3) Acute respiratory failure with hypoxia: Code(s): J96.01 - Acute respiratory failure with hypoxia Status: Acute Assessment and Plan: LIKELY SECONDARY TO PULMONARY EMBOLISM AND PNEUMONIA Continue to oxygenate add breathing treatments (4) Pneumonia: Qualifiers: Laterality: bilateral Lung location: unspecified part of lung Pneumonia type: due to unspecified organism Qualified Code(s): J18.9 - Pneumonia, unspecified organism Code(s): J18.9 - Pneumonia, unspecified organism Status: Resolved Assessment and Plan: WCC is NL, BC negative to date, change to oral abx on discharge (5) Elevated troponin: Code(s): R77.8 - Other specified abnormalities of plasma proteins Status: Acute Assessment and Plan: LIKELY TO BE A TROPONIN LEAK SECONDARY TO PULMONARY EMBOLISM unlikely ischemic related. (6) Pulmonary edema: Code(s): J81.1 - Chronic pulmonary edema Status: Acute Assessment and Plan: CXR shows pulmonary edema pt to have oral lasix BID. Echo completed see full report. EF Left ventricular systolic function is normal, estimated at 60-65%. (7) Epigastric pain: Code(s): R10.13 - Epigastric pain Status: Resolved Assessment and Plan: Pt seen by GI sp egd showing gastritis, increase GERD medications DS: Summary Hospital Course Hospital Course: Elderly lady looks weak and unwell, currently on 2 liters of oxygen. Still has mild cough, does not move much due to weakness in both her legs. Pt states she has some pain in the abdomen epigastric area. Pt had EGD and CTA on admission. Pt had Champion catheter passed yesterday. Pt o be discharged with champion catheter in situ for urinary retention, Pt discharged on oxygen. Pt treated for PE and pneumonia in the hospital. Discharged on oral ABX and coumadin. Time Spent with Patient Time attestation: Total time spent providing and/or coordinating discharge services: 40 minutes on day of discharge Exam Narrative: Exam Narrative: General: Elderly, tired, immobile Respiratory: Decreased BS, no added sounds Cardiovascular: Regular rate, regular rhythm, 2+ bilateral radial pedal pulses Gastrointestinal: Nondistended, tender in epigastric region, positive bowel sounds, soft Skin: Generalized pallor, non jaundice Musculoskeletal: Trace edema Neurological: Alert and oriented x3, speech is clear, moving all 4 limbs Psychiatric: Flat affect,depressed, cooperative DS: Data Data Completed and Pending Labs on day of discharge: Labs from last 24 hours 02/24/21 02/24/21 02/24/21 05:28 05:28 05:28 WBC 6.2 RBC 3.28 L Hgb 9.5 L Hct 29.7 L MCV 90.5 MCH 29.0 MCHC 32.0 RDW 23.8 H Plt Count 526 H MPV 10.3 PT 27.4 H INR 2.5 Sodium 137 Potassium 4.3 Chloride 105 Carbon Dioxide 30 Anion Gap 2 L BUN 12 Creatinine 0.90 Estim Creat Clear Calc 43 Estimated GFR 60 Glucose 79 Calcium 9.0 Discharge Plan Disc
[2021-02-24 14:00] VITALS: BP 105/55; PULSE 65; RESP 18; TEMP 36.3; O2SAT 97
--- NOTE | 2021-02-24 14:09 | PCPTNOTE ---
Attempted to see patient for Physical Therapy treatment at 1255 and 1410; patient declined both attempts, stating that she was tired and her back hurt. Patient's son present for second attempt. Pt declined participating with LE exercises in bed. Filled patient's ice pack with fresh ice per patient's request.
[2021-02-24] MEDS: WARFARIN (*PBKC) 3 MG TABLET PO (16:41)
[2021-02-24 16:42] VITALS: O2SAT 98
--- NOTE | 2021-02-24 17:26 | PC.NURSE ---
Addendum entered by Alena Garduno RN 02/24/21 17:28: Son Jose informed that ambulance necessity form completed and there is a possibility that ambulance might not be covered by insurance. Original Note: Patient discharging to home. Spoke with son Jose via phone and reviewed all d/c instructions. Jose verified that family will be at the house waiting for patient to arrive. O2 has already been delivered and set up by [facility]. Jose notified of ETA of ambulance and verbalized understanding.
== END 2021-02-24 17:25 | disposition home health service (06) | DRG 175 ==
LOC: ANHED 16:51 → ANHIMU 18:02 → ANH2MED 02-18 08:31 → ANHIMU 02-26 16:32
PROVIDERS: Internal Medicine; Physician Assistant; Admitting Provider Internal Medicine; Emergency Provider General Practice; PCP Family Medicine; Visit Provider Family Medicine
DX: I26.94 Multiple subsegmental thrombotic pulmonary emboli without acute cor pulmonale (principal); J18.9 Pneumonia, unspecified organism; J96.01 Acute respiratory failure with hypoxia; I82.411 Acute embolism and thrombosis of right femoral vein; I82.431 Acute embolism and thrombosis of right popliteal vein; I82.441 Acute embolism and thrombosis of right tibial vein; I82.461 Acute embolism and thrombosis of right calf muscular vein; N18.30 Chronic kidney disease, stage 3 unspecified; I48.91 Unspecified atrial fibrillation; E87.6 Hypokalemia; D50.0 Iron deficiency anemia secondary to blood loss (chronic); Z66 Do not resuscitate; R33.9 Retention of urine, unspecified
CPT/HCPCS: 36415; 36600; 51701; 71045; 71046; 71275; 74018; 80048; 80053; 80076; 81001; 81003; 82375; 82805; 83050; 83605; 83690; 83735; 83880; 84100; 84132; 84484; 85014; 85018; 85025; 85027; 85380; 85610; 85730; 87040; 93005; 93306; 93970; 94618; 96361; 96365; 96375; 97110; 97116; 97161; 97165; 97530; 97535; 99291; A9270; J0131; J1644; J2270; J2405; J2543; J2765; J3475; J3480; J7040; Q9967